=== PATIENT | female | born 1980 | race Caucasian/White ===

== ENCOUNTER → 2018-02-19 15:06 | Outpatient (CLI) | payer BC, SELFPAY ==
[2018-02-19 16:11] LABS: Hematocrit 41.7 % (37-47); Hemoglobin 13.5 g/dl (12.0-15.0); Mean Corp Hgb Conc 32.4 g/gl (32-36); Mean Corpuscular Hgb 30.1 pg (27.0-32.0); Mean Corpuscular Volume 93.1 fL (81-99); Platelet Count 412 K/mm3 (150-450); RBC Distribution Width CV 13.8 % (11.6-14.6); RBC Distribution Width SD 46.4 fl (35.1-43.9); Red Blood Count 4.48 M/mm3 (4.2-5.4); White Blood Count 10.4 K/mm3 (4.4-11.0)
[2018-02-19 16:14] LABS: Scan Indicated on CBC? Y/N NO
[2018-02-19 16:21] LABS: ALB/GLOB Ratio 0.6 RATIO (0.9-2.4); AST(SGOT) 18 U/L (15-37); Alanine Aminotransfer ALT/SGPT 19 U/L (13-56); Albumin, Serum 2.9 g/dL (3.2-5.0); Alkaline Phosphatase 75 U/L (45-117); Anion Gap 9 (5-15); BUN 10 mg/dL (7-18); BUN/Creat Ratio 10.2 RATIO (10-20); Calcium,Total 8.7 mg/dL (8.5-10.1); Chloride 105 mmol/L (98-107); Creatinine, Serum 0.98 mg/dL (0.55-1.02); EST Glomerular Filtration Rate 68 mL/min (>60); Est Glom Filt Rate - Afr Amer 82 mL/min (>60); Globulin 4.6 g/dL (2.2-4.2); Glucose 99 mg/dL (74-106); Potassium 4.1 mmol/L (3.5-5.1); Protein, Total 7.5 g/dL (6.4-8.2); Sodium Level 141 mmol/L (136-145)
[2018-02-19 16:44] LABS: Erythrocyte Sedimentation Rate 27 mm/hr (0-20)
== END ==
PROVIDERS: Family Provider Family Medicine; PCP Family Medicine; Visit Provider Internal Medicine Gastroenterology
DX: K50.90 Crohn's disease, unspecified, without complications (principal)
CPT/HCPCS: 36415; 80053; 85027; 85652

== ENCOUNTER → 2018-06-18 12:09 | Outpatient (CLI) | payer BC, SELFPAY ==
[2018-06-18 14:29] LABS: Thyroid Stim Hormone (TSH) 3.51 uIU/mL (0.358-3.74)
== END ==
PROVIDERS: Family Provider Family Medicine; PCP Family Medicine; Referring Provider Family Medicine; Visit Provider Family Medicine
DX: R79.89 Other specified abnormal findings of blood chemistry (principal)
CPT/HCPCS: 36415; 84443

== ENCOUNTER 2018-10-24 22:48 | Emergency (ER) | payer BC, SELFPAY ==
[2018-10-24 22:49] VITALS: BP 144/92; PULSE 111; RESP 18; TEMP 37.1; O2SAT 95; BMI 38.1
[2018-10-24] MEDS: 0.9% Normal Saline 1,000 ML 1000 ML IV (23:26)
[2018-10-24] MEDS: Morphine 4 MG/ML Syringe IV (23:26)
[2018-10-24] MEDS: Ondansetron 4 MG/2 ML Vial IV (23:26)
[2018-10-24 23:32] LABS: Absolute Lymphocyte Count 3.58 X10^3/ul (0.83-4.51); Absolute Neutrophil Count 7.7 X10^3/uL (2.0-7.7); Basophil# 0.01 X10^3/uL; Basophil% 0.1 % (0-1); Eosinophil# 0.01 X10^3/uL; Eosinophils% 0.1 % (0-5); Hematocrit 42.4 % (37-47); Hemoglobin 13.8 g/dl (12.0-15.0); Lymphocyte # 3.58 X10^3/ul (4.0); Lymphocyte % 29.7 % (19-41); Mean Corp Hgb Conc 32.5 g/gl (32-36); Mean Corpuscular Hgb 30.8 pg (27.0-32.0); Mean Corpuscular Volume 94.6 fL (81-99); Mean Platelet Vol. 9.1 fl (6.2-12.0); Monocyte# 0.71 X10^3/uL; Monocyte% 5.9 % (0-10); Neutrophil # 7.74 X10^3/uL (2.7-7.7); Platelet Count 380 K/mm3 (150-450); RBC Distribution Width CV 14.2 % (11.6-14.6); RBC Distribution Width SD 48.6 fl (35.1-43.9); Red Blood Count 4.48 M/mm3 (4.2-5.4); White Blood Count 12.1 K/mm3 (4.4-11.0)
[2018-10-24 23:33] LABS: POSITIVE COUNT NO; POSITIVE DIFFERENTIAL NO; POSITIVE MORPHOLOGY NO
[2018-10-24 23:46] LABS: ALB/GLOB Ratio 0.6 RATIO (0.9-2.4); AST(SGOT) 13 U/L (15-37); Alanine Aminotransfer ALT/SGPT 14 U/L (13-56); Albumin, Serum 2.6 g/dL (3.2-5.0); Alkaline Phosphatase 63 U/L (45-117); Anion Gap 8 (5-15); BUN 9 mg/dL (7-18); BUN/Creat Ratio 9.9 RATIO (10-20); Calcium,Total 8.5 mg/dL (8.5-10.1); Chloride 111 mmol/L (98-107); EST Glomerular Filtration Rate 74 mL/min (>60); Est Glom Filt Rate - Afr Amer 89 mL/min (>60); Estimated Creatinine Clearance 73.19 ml/min; Globulin 4.7 g/dL (2.2-4.2); Glucose 108 mg/dL (74-106); Lipase 101 U/L (73-393); Potassium 4.5 mmol/L (3.5-5.1); Protein, Total 7.3 g/dL (6.4-8.2); Sodium Level 139 mmol/L (136-145)
[2018-10-24 23:49] VITALS: BP 141/98; PULSE 94; RESP 14; TEMP 37; O2SAT 99
--- NOTE | 2018-10-24 23:52 | ED.RN ---
sepsis alert activated. dr Jiménez informed. he feels it is an inflammatory process not infectious. mariposa watkins rn [id number]
[2018-10-25 00:53] LABS: Bacteria 0 SEEN /hpf (None Seen)
[2018-10-25 00:55] LABS: Color, Urine Yellow (Yellow); Glucose, Dipstick Normal (Normal); Ketone-Dipstick 5 mg/dl (Negative); Leukocyte Esterase-Dipstick 100 /ul (Negative); Nitrite-Dipstick Negative (Negative); Occult Blood-Urine 25 /ul (Negative); Protein-Dipstick 15 mg/dl (Negative); Specific Gravity, Urine 1.015 (1.002-1.030); Urine Bilirubin Dipstick Negative (Negative); Urine Clarity Clear (Clear); Urine Urobilinogen Normal (Normal)
[2018-10-25 00:58] LABS: Internal QC Validated? YES +Cl - CLEAR BKGD; Pregnancy, Urine Negative Negative
[2018-10-25 01:01] LABS: Mucous, Urine 2+ /hpf (<or=2+); Red Blood Cells-Urine 0-5 SEEN /hpf (0-5); Squamous Epithelial Cells - UA > 100 SEEN /hpf (5-10); White Blood Cells 5-10 SEEN /hpf (0-5)
[2018-10-25] MEDS: Morphine 4 MG/ML Syringe IV (01:08)
[2018-10-25 01:10] VITALS: BP 157/107; PULSE 91; RESP 17; O2SAT 97
--- NOTE | 2018-10-25 02:10 | ED.DCSUM_ITS ---
- ER Visit Summary Date of Service: 10/25/18 Chief Complaint: Abdominal pain nausea History of Present Illness: The patient is a 38 F who presents with chief complaint of Crohn's flare. She has a history of Crohn's disease. She has had no surgeries. She sees Dr. Ch. She developed periumbilical pain yesterday. She describes this is severe and stabbing. It does not radiate. She reports mild nausea without any vomiting. She is also had one episode of loose stool today. No fever. Physical Examination: Afebrile initial heart rate 111 vitals otherwise normal Heart regular tachycardia Lungs clear Abdomen soft nondistended she does have some diffuse nonfocal abdominal te nderness without guarding without rebound Alert Test Results: Labs notable for white count 12.1. Hepatic function lipase unremarkable. Urinalysis contaminated. negative. CT of the abdomen pelvis is consistent with acute Crohn's flare with distal ileitis. Emergency Department Course and Treatment: Patient was treated here with IV morphine and Zofran. On reevaluation she feels much better and complains of only some mild tenderness. She does feel well enough to go home. We discussed hospitalization versus oral steroid and close outpatient follow-up. She would prefer to try outpatient management. However she does understand the need to return for new or worsening symptoms. Treatment Plan: [] Disposition: Discharge Impression: Crohn's flare This note was generated with [employer] dictation software. It may contain incorrect words, spelling, and punctuation that were not noted in review of the chart prior to signing ED Disposition - Plan for ED Patient: Referrals: Sawyer Tavera MD [Primary Care Provider] -
--- NOTE | 2018-10-25 02:10 | ED.DEP ---
ED Disposition - Plan for ED Patient: Instructions: ED Inflam Bowel Disease Crohn Prescriptions: predniSONE tablet 60 mg PO DAILY #15 tab Referrals: Sawyer Tavera MD [Primary Care Provider] -
[2018-10-25 02:18] VITALS: BP 156/96; PULSE 95; RESP 16; O2SAT 96
--- NOTE | 2018-10-25 23:11 | CT_ITS ---
HISTORY: ABDOMEN PAIN AND NAUSEA SINCE YESTERDAY,ELEVATED WBCHX:HTN,CROHN'S EXAMINATION: CT Abdomen And Pelvis W/ Contrast TECHNIQUE: Helically acquired images were obtained of the abdomen and pelvis following oral and IV contrast. IV Contrast dosage and agent: 100ML Isovue 300 Oral contrast: Yes. COMPARISON: None. FINDINGS: LOWER CHEST: Lung bases are clear. No cardiomegaly or pericardial effusion observed. LIVER: Homogeneous. No focal mass. GALLBLADDER AND BILIARY TREE: No calcified gallstones. There is no gallbladder distension or wall edema. No intra- or extrahepatic biliary ductal dilation. KIDNEYS AND URETERS: Normal renal size and position. There is no hydronephrosis. ADRENAL GLANDS: Non-enlarged. SPLEEN: Normal size without focal cystic or solid mass. PANCREAS: No focal cystic or solid mass. BOWEL: Normal appendix. Marked wall thickening of the distal and terminal ileum with areas of luminal narrowing and mild dilation. Inflammatory changes and mild adenopathy in the adjacent mesentery, but no abscess or extraluminal air. Remainder of the bowel unremarkable. LYMPH NODES: No enlarged mesenteric or retroperitoneal lymph nodes. PERITONEUM: Small amount of free fluid and fluid in the mesentery. No free air or extraluminal air. VESSELS: Aorta is non-dilated. URINARY BLADDER: Unremarkable. REPRODUCTIVE ORGANS: No pelvic masses. Uterus and ovaries with normal CT appearance. ABDOMINAL WALL: No discrete abdominal or pelvic wall hernia observed. BONES: No acute osseous abnormality. CT/Abdomen/Pelvis WITH Contrast IMPRESSION: Findings compatible with an acute flare of Crohn's disease with distal/terminal ileitis. Any obstruction is mild, low-grade and partial. No abscess, no evidence of perforation. Individualized dose optimization techniques were used for this CT. at 0153 Reported and signed by: Mane Rutledge MD Electronically Signed: Mane Rutledge, at 1:52 EDT Tel , Service support ,
== END 2018-10-25 02:19 | disposition home or self-care (01) ==
LOC: ED 23:17
PROVIDERS: Emergency Provider Emergency Medicine; Family Provider Family Medicine; PCP Family Medicine
DX: K50.90 Crohn's disease, unspecified, without complications (principal); I10 Essential (primary) hypertension
CPT/HCPCS: 74177; 80053; 81001; 81025; 83690; 85025; 96361; 96374; 96375; 96376; 99283; J7030; Q9967; A4216; J2405

== ENCOUNTER → 2018-11-12 15:41 | Outpatient (CLI) | payer BC, SELFPAY ==
[2018-10-24 22:49] VITALS: BMI 38.1
--- NOTE | 2018-11-09 | COLBX_PTH ---
PATIENT: JOHN ANAND LOC: [facility] U#:[id number] AGE/SX: 44/F ROOM: RE11/12/[address]: Dr. Karson Ch MD : 1980 BED: DIS: SPEC #: [id number] RECD: 11/12/18 15:28 STATUS: ROBINA MARI #: [id number] JENNIFFER: 11/09/18 00:[address]: Karson Ch DEPT: SURGICAL PATHOLOGY RECD BY: Carlito Luna ENTERED: 11/13/18 09:23 SP TYPE: COLON BX OTHR DR: Dr. Sawyer Tavera MD [facility] Tissues: A - Ileum, NOS B - Right colon Procedures: Surgery Specimen Level IV HEADER OPERATION: Colonoscopy with biopsy PRE-OP DIAGNOSIS: Crohn's TISSUE SUBMITTED: A - Terminal ileum biopsies, rule out active Crohn's, B - Right colon biopsies, rule out active Crohn's MICROSCOPIC DIAGNOSIS A. Terminal ileum, biopsy: Fragments of small intestinal mucosa with blunting of villi, mild architectural distortion and mild nonspecific chronic inflammation. Negative for active inflammation. B. right colon, biopsy: Fragments of colonic mucosa, no pathologic diagnosis. SMITH:stevie 11/14/18 COMMENT Correlation with clinical, endoscopic findings and appropriate follow up are necessary. Case has been reviewed in consultation with Dr. Reyes who concurs with the above diagnosis. IDC:AM MICROSCOPIC DESCRIPTION Slides are reviewed. GROSS DESCRIPTION A - Received in fixative is one container labeled with the patient's name and designated terminal ileum biopsy. The specimen consists of multiple irregular fragments of light harley soft tissue that in aggregate measure 0.8 x 0.3 x 0.1 cm. The specimen is totally submitted in one cassette. B - Received in fixative is one container labeled with the patient's name and designated right colon biopsy. The specimen consists of multiple irregular fragments of light harley soft tissue that in aggregate measure 2 x 0.5 x 0.1 cm. The specimen is totally submitted in one cassette. / SMITH:stevie 11/13/18 TC:5 CPT: 66005 x2
== END ==
PROVIDERS: Family Provider Family Medicine; PCP Family Medicine; Referring Provider Internal Medicine Gastroenterology; Visit Provider Internal Medicine Gastroenterology
DX: K50.90 Crohn's disease, unspecified, without complications (principal)
CPT/HCPCS: 88305

== ENCOUNTER → 2018-11-28 15:26 | Outpatient (CLI) | payer BC, SELFPAY ==
[2018-11-28 17:53] LABS: AST(SGOT) 13 U/L (15-37); Alanine Aminotransfer ALT/SGPT 18 U/L (13-56); Albumin, Serum 2.8 g/dL (3.2-5.0); Alkaline Phosphatase 85 U/L (45-117); Bilirubin, Direct 0.05 mg/dL (0.00-0.30); Globulin 3.9 g/dL (2.2-4.2); Protein, Total 6.7 g/dL (6.4-8.2)
[2018-11-30 16:07] LABS: Endomysial Antibody IgA Negative (Negative)
[2018-12-02 14:03] LABS: Immunoglobulin A 336 mg/dL (87-352); t-Transglutaminase IgA <2 U/mL (0-3)
== END ==
PROVIDERS: Family Provider Family Medicine; PCP Family Medicine; Referring Provider Internal Medicine Gastroenterology; Visit Provider Internal Medicine Gastroenterology
DX: K50.90 Crohn's disease, unspecified, without complications (principal)
CPT/HCPCS: 36415; 80076; 82784; 83516; 86140; 86255

== ENCOUNTER → 2020-04-27 13:43 | Outpatient (CLI) | payer BC, SELFPAY ==
[2020-04-27 15:23] LABS: Hemoglobin 13.3 g/dL (12.0-15.0); Mean Corp Hgb Conc 31.7 g/dL (32-36); Mean Corpuscular Hgb 29.3 pg (27.0-32.0); Mean Corpuscular Volume 92.5 fL (81-99); Mean Platelet Vol. 9.3 fl (6.2-12.0); Platelet Count 474 K/mm3 (150-450); RBC Distribution Width CV 13.5 % (11.6-14.6); RBC Distribution Width SD 46.6 fl (35.1-43.9); Red Blood Count 4.54 M/mm3 (4.2-5.4); White Blood Count 10.2 K/mm3 (4.4-11.0)
[2020-04-27 15:49] LABS: ALB/GLOB Ratio 0.6 RATIO (0.9-2.4); AST(SGOT) 9 U/L (15-37); Alanine Aminotransfer ALT/SGPT 12 U/L (13-56); Albumin, Serum 2.9 g/dL (3.2-5.0); Alkaline Phosphatase 77 U/L (45-117); Anion Gap 8 (5-15); BUN 11 mg/dL (7-18); BUN/Creat Ratio 11.7 RATIO (10-20); Calcium,Total 9.1 mg/dL (8.5-10.1); Chloride 105 mmol/L (98-107); Creatinine, Serum 0.94 mg/dL (0.55-1.02); EST Glomerular Filtration Rate 70 mL/min (>60); Est Glom Filt Rate - Afr Amer 85 mL/min (>60); Globulin 4.6 g/dL (2.2-4.2); Glucose 107 mg/dL (74-106); Potassium 3.6 mmol/L (3.5-5.1); Protein, Total 7.5 g/dL (6.4-8.2); Sodium Level 137 mmol/L (136-145)
== END ==
PROVIDERS: PCP Family Medicine; Referring Provider Internal Medicine Gastroenterology; Visit Provider Internal Medicine Gastroenterology
DX: K50.90 Crohn's disease, unspecified, without complications (principal)
CPT/HCPCS: 36415; 80053; 85027; 86140

== ENCOUNTER → 2021-10-11 | Outpatient (CLI) | payer OTHER, SELFPAY ==
[2021-10-11 18:12] LABS: Hematocrit 36.1 % (37-47); Hemoglobin 11.7 g/dL (12.0-15.0); Mean Corp Hgb Conc 32.4 g/dL (32-36); Mean Corpuscular Hgb 30.4 pg (27.0-32.0); Mean Corpuscular Volume 93.8 fL (81-99); Mean Platelet Vol. 9.2 fl (6.2-12.0); Platelet Count 380 K/mm3 (150-450); RBC Distribution Width CV 13.6 % (11.6-14.6); RBC Distribution Width SD 46.5 fl (35.1-43.9); Red Blood Count 3.85 M/mm3 (4.2-5.4); White Blood Count 8.6 K/mm3 (4.4-11.0)
[2021-10-11 18:13] LABS: Erythrocyte Sedimentation Rate 35 mm/hr (0-30)
[2021-10-11 18:39] LABS: ALB/GLOB Ratio 0.6 RATIO (0.9-2.4); AST(SGOT) 10 U/L (15-37); Alanine Aminotransfer ALT/SGPT 12 U/L (13-56); Albumin, Serum 2.4 g/dL (3.2-5.0); Alkaline Phosphatase 70 U/L (45-117); Anion Gap 9 (5-15); BUN 8 mg/dL (7-18); BUN/Creat Ratio 10.3 RATIO (10-20); Calcium,Total 8.3 mg/dL (8.5-10.1); Chloride 108 mmol/L (98-107); Creatinine, Serum 0.77 mg/dL (0.55-1.02); EST Glomerular Filtration Rate 87 mL/min (>60); Est Glom Filt Rate - Afr Amer 106 mL/min (>60); Globulin 4.3 g/dL (2.2-4.2); Glucose 121 mg/dL (74-106); Potassium 3.5 mmol/L (3.5-5.1); Protein, Total 6.7 g/dL (6.4-8.2); Sodium Level 139 mmol/L (136-145)
== END | disposition home or self-care (01) ==
PROVIDERS: PCP Family Medicine; Referring Provider Internal Medicine Gastroenterology; Visit Provider Internal Medicine Gastroenterology
DX: K50.90 Crohn's disease, unspecified, without complications (principal)
CPT/HCPCS: 36415; 80053; 85027; 85652; 86140

== ENCOUNTER → 2021-10-13 | Outpatient (CLI) | payer OTHER, SELFPAY ==
[2021-10-18 13:41] LABS: Calprotectin, Stool 66 ug/g (0-120)
== END | disposition home or self-care (01) ==
LOC: LAB.FUTURE 13:46 → MTLAB 16:02
PROVIDERS: PCP Family Medicine; Referring Provider Internal Medicine Gastroenterology; Visit Provider Internal Medicine Gastroenterology
DX: K50.90 Crohn's disease, unspecified, without complications (principal)
CPT/HCPCS: 83993

== ENCOUNTER → 2021-11-04 | Outpatient (CLI) | payer OTHER, SELFPAY ==
--- NOTE | 2021-11-04 08:05 | RAD_ITS ---
PROCEDURE: SMALL BOWEL SERIES DATE OF EXAMINATION: 11/04/2021. INDICATION: Female, 41 years old. History of Crohn''s. PHYSICIAN: Hi Wilkins M.D. FLUOROSCOPY TIME (if supplied): (0:07) minutes/seconds. 8 images were obtained. TECHNIQUE: Radiographic and fluoroscopic images were taken of the small intestine following the ingestion of barium. COMPARISON: None. FINDINGS: A preliminary supine KUB was obtained. There is an unremarkable bowel gas pattern. Fecal material is present throughout the colon. Phleboliths are present within the pelvis. The lung bases are unremarkable. The osseous structures are normal. The patient orally ingested approximately 12 ounces of thin barium Normal visualized fundus, body, and antrum of the stomach. Normal duodenal bulb, C-loop, and proximal jejunum. There is evidence of a separation of the bowel loops with the thickening and narrowing of the distal and terminal ileum. There is also evidence of a thickening of the visualized portion of the cecum and ascending colon in keeping with recurrent Crohn''s disease. Linear barium density seen in the right side of the pelvis suggestive of possible fistula. There is a normal motor pattern with barium reaching the colon within approximately 30 minutes. RAD/Small Bowel Series Only IMPRESSION: Thickening and separation of small bowel loops in the distal and terminal ileum with evidence of narrowing and abnormal appearance of the terminal ileum and cecum. A linear barium density is seen in the right upper pelvis suggestive of possible fistula. Electronically Signed: Hi Wilkins MD at 12:16 EDT ,
== END | disposition home or self-care (01) ==
LOC: RAD 08:05
PROVIDERS: PCP Family Medicine; Referring Provider Internal Medicine Gastroenterology; Visit Provider Internal Medicine Gastroenterology
DX: K50.90 Crohn's disease, unspecified, without complications (principal)
CPT/HCPCS: 74250

== ENCOUNTER → 2021-12-21 | Outpatient (CLI) | payer OTHER, SELFPAY | END | disposition home or self-care (01) | LOC: MTLAB 16:07 | PROVIDERS: PCP Family Medicine; Referring Provider Internal Medicine Gastroenterology; Visit Provider Internal Medicine Gastroenterology | DX: K50.90 Crohn's disease, unspecified, without complications (principal) | CPT/HCPCS: 36415 ==

== ENCOUNTER → 2022-01-25 | Outpatient (CLI) | payer OTHER, SELFPAY ==
[2022-01-28 17:07] LABS: QNTFERON TB Nil Value 0.02 IU/mL (.); QNTFERON TB1+ Ag Value 0.05 IU/mL (.); QNTFERON TB2+ Ag Value 0.06 IU/mL (.)
[2022-01-29 07:44] LABS: QNTIFERON TB Positive Criteria Negative (Negative)
== END | disposition home or self-care (01) ==
LOC: MTLAB 15:24
PROVIDERS: PCP Family Medicine; Referring Provider Internal Medicine Gastroenterology; Visit Provider Internal Medicine Gastroenterology
DX: K50.90 Crohn's disease, unspecified, without complications (principal)
CPT/HCPCS: 36415; 86480

== ENCOUNTER 2023-02-07 14:37 | Inpatient (IN) | payer OTHER, SELFPAY ==
[2023-02-07] VITALS (7 sets, daily range): BP systolic 124–135; BP diastolic 77–94; PULSE 82–103; RESP 15–87; TEMP 36.2–37.2; O2SAT 96–100; BMI 41.3
[2023-02-07] MEDS: Ondansetron 4 MG/2 ML Vial IV ×2 (14:52→16:40)
[2023-02-07 14:59] LABS: Basophil# 0.08 X10^3/uL; Basophil% 0.4 % (0-1); Eosinophil# 0.14 X10^3/uL; Eosinophils% 0.7 % (0-5); Hematocrit 43.3 % (37-47); Hemoglobin 14.5 g/dL (12.0-15.0); Lymphocyte % 23.1 % (19-41); Mean Corp Hgb Conc 33.5 g/dL (32-36); Mean Corpuscular Volume 92.7 fL (81-99); Mean Platelet Vol. 8.7 fl (6.2-12.0); Monocyte# 1.01 X10^3/uL; Monocyte% 5.1 % (0-10); NRBC Flagged by Analyzer 0 % (0-5); Neutrophil % 70.3 % (47-70); Platelet Count 555 K/mm3 (150-450); RBC Distribution Width CV 14.7 % (11.6-14.6); RBC Distribution Width SD 50.3 fl (35.1-43.9); Red Blood Count 4.67 M/mm3 (4.2-5.4); White Blood Count 19.9 K/mm3 (4.4-11.0)
--- NOTE | 2023-02-07 15:46 | EKG12_ITS ---
Test Reason : SYNCOPE Blood Pressure : / mmHG Vent. Rate : 084 BPM Atrial Rate : 084 BPM P-R Int : 154 ms QRS Dur : 074 ms QT Int : 394 ms P-R-T Axes : 029 -11 008 degrees QTc Int : 465 ms Normal sinus rhythm Cannot rule out Anterior infarct , age undetermined Abnormal ECG Confirmed by TIAGO YUSUF, SAQIB ([id number]), fashion editor CARMEN ALATORRE ([id number]) on 02/10/2023 12:57:32 PM Referred By: Confirmed By:SAQIB ORDOÑEZ MD
--- NOTE | 2023-02-07 15:48 | CT_ITS ---
EXAM: CT ABDOMEN AND PELVIS WITH INTRAVENOUS CONTRAST CLINICAL INDICATION: abdominal pain. Previously reported Crohn''s disease, not indicated on current requisition. Correlation with current history and prior studies is required. TECHNIQUE: Helically acquired images were obtained of the abdomen and pelvis with intravenous contrast. This CT exam was performed using one or more of the following dose reduction techniques: automated exposure control, adjustment of the mA and/or kV according to patient size, and/or use of iterative reconstruction technique. CONTRAST: IV 100mL Isovue-300 COMPARISON: 10/25/2018. FINDINGS: LOWER THORAX: Unremarkable. Lung bases are clear. No cardiomegaly. No significant pericardial effusion. ABDOMEN: LIVER: Unremarkable. Homogeneous. No focal mass. GALLBLADDER AND BILE DUCTS: Unremarkable. No calcified gallstones. No gallbladder distention or wall edema. No intra- or extrahepatic biliary ductal dilation. PANCREAS: Unremarkable. No focal cystic or solid mass. SPLEEN: Unremarkable. Normal size without focal cystic or solid mass. ADRENALS: Unremarkable. No nodules. KIDNEYS AND URETERS: Unremarkable. Normal renal size and position. No hydronephrosis. STOMACH AND BOWEL: Multiple dilated loops of ileum consistent with small bowel obstruction. Moderate wall thickening of the distal ileum consistent with previously reported Crohn''s disease. Moderate mesenteric fat surrounding the involved small bowel loops. PELVIS: APPENDIX: No evidence of acute appendicitis. BLADDER: Unremarkable. REPRODUCTIVE: Unremarkable as visualized. No mass. ABDOMEN and PELVIS: INTRAPERITONEAL SPACE: Unremarkable. No ascites or other fluid collection. No free air. BONES/JOINTS: Unremarkable. No suspicious lytic or blastic abnormality. SOFT TISSUES: Unremarkable. No discrete abdominal or pelvic wall hernia. VASCULATURE: Unremarkable. Abdominal aorta is normal in caliber. LYMPH NODES: Unremarkable. No enlarged lymph nodes. CT/Abdomen/Pelvis W IV Cont ONLY IMPRESSION: Partial small bowel obstruction, likely due to Crohn''s disease. Electronically Signed: Anali Lopez MD at 18:28 EDT Reading Location ID and State: [id number] / Tel , Service support ,
--- NOTE | 2023-02-07 15:52 | RAD_ITS ---
INDICATION: carlosnes EXAMINATION/TECHNIQUE: X-RAY - XR Chest 1 View COMPARISON: FINDINGS: LINES/DEVICES: None. LUNGS: No consolidation, edema or effusion. No pneumothorax. MEDIASTINUM AND CARDIOVASCULAR STRUCTURES: Cardiac silhouette not enlarged. Central airways and mediastinal contour are unremarkable. BONES AND SOFT TISSUES: Unremarkable. RAD/Chest 1 View (Portable) IMPRESSION: No radiographic evidence of acute cardiopulmonary disease. Electronically Signed: Anali Lopez MD at 16:18 EDT Reading Location ID and State: [id number] / Tel , Service support ,
--- NOTE | 2023-02-07 16:21 | ED.VIS.GI ---
HPI HPI - GI History of Present Illness Chief Complaint: Nausea/Vomiting Narrative Narrative: 42-year-old female with history of Crohn's disease and previously patient of Dr. sanderson. She used to be on Stelara. She states that since March of last year she has been off of it due to this not being covered by her insurance. She states that that is when she last saw Dr. Sanderson as well. She states her symptoms started about 1 PM today. She has been vomiting multiple times. He denies diarrhea. She has crampy pain all over her abdomen. She states her pain is now a 2/10. She states she believes she had a fever at home but did not check a temperature. No history of abdominal surgeries. Last colonoscopy was last year. PFSH PFS Medical History (Updated 02/07/23 @ 20:[address] Aure Hernandez MD) Anxiety and depression Crohn disease Hypertension Hypothyroidism Obesity Home Medications cholecalciferol (vitamin D3) 125 mcg (5,000 unit) capsule 5,000 unit PO DAILY 10/24/18 [History Last Taken 02/07/23 06:30] desogestrel-ethinyl estradiol 0.1 mg/0.125 mg/0.15 mg-25 mcg tablet (Velivet Triphasic Regimen (28)) 1 tab PO DAILY 10/24/18 [History Last Taken 02/07/23 06:30] levothyroxine 175 mcg tablet 175 mcg PO DAILY 10/24/18 [History Last Taken 02/07/23 06:30] propranolol 40 mg tablet 40 mg PO BID 10/24/18 [History Last Taken 02/07/23 06:30] sertraline 50 mg tablet 50 mg PO DAILY 10/24/18 [History Last Taken 02/07/23 06:30] vitamin B complex (B Complex-Vitamin B12 tablet) 1 tab PO DAILY 02/07/23 [History Last Taken 02/07/23 06:30] Allergy/AdvReac Type Severity Reaction Status Date / Time No Known Allergies Allergy Verified 10/24/18 22:48 Surgical History (Updated 02/07/23 @ 20:[address] Aure Hernandez MD) History of dental surgery Social History (Updated 02/07/23 @ 20:[address] Aure Hernandez MD) household members: spouse Smoking Status: Never smoker alcohol intake: never substance use type: does not use ROS ROS ED Constitutional Constitutional ED: Reports fever(s) and subjective; Denies chills ENT ENT ED: Denies rhinorrhea or sore throat Cardiovascular Cardiovascular: Denies chest pain or palpitations Respiratory/Chest Respiratory/Chest: Denies cough or dyspnea Gastrointestinal Gastrointestinal: Reports abdominal pain, nausea and vomiting; Denies diarrhea Genitourinary Genitourinary ED: Denies dysuria or hematuria Musculoskeletal Musculoskeletal: Denies arthralgias Integumentary Denies abscess Neurologic Neurologic: Denies headache(s) or paresthesias Psychiatric Psychiatric: Denies anxiety or depression EXAM Physical Exam Const Vital Signs: 02/07/23 14:38 02/07/23 15:50 02/07/23 16:00 Temperature 97.2 F L 98.6 F 98.5 F Temperature Source Temporal Oral Oral Pulse Rate 103 H 89 88 Respiratory Rate 17 20 H 17 Blood Pressure 135/92 H 135/77 H 134/92 H Blood Pressure Mean 106 96 106 Pulse Ox 97 100 100 Oxygen Delivery Method Room Air Room Air Room Air 02/07/23 16:37 02/07/23 18:00 02/07/23 20:01 Temperature 98.9 F Temperature Source Temporal Pulse Rate 82 87 87 Respiratory Rate 15 16 87 H Blood Pressure 135/80 H 124/94 H 134/79 H Blood Pressure Mean 98 104 97 Pulse Ox 98 97 96 Oxygen Delivery Method Room Air Room Air Room Air Positive well nourished and obese General Appearance ED: NAD Nutritional Appearance: obese HEENT Reports moist mucous membranes normocephalic and atraumatic Eyes PERRL and EOMs intact bilaterally Resp normal respiratory effort Effort and Inspection: Negative for respiratory distress Cardio regular rhythm Rate: tachycardic GI Palpation: tender periumbilical and suprapubic MDM MDM MDM Narrative Medical decision making narrative: Patient with nausea, vomiting, cramping of the abdomen. History of Crohn's disease. Differential includes Crohn's flare, diverticulitis, colitis, UTI, pyelonephritis. CBC was obtained to assess white blood cell count, hemoglobin, platelets, differential. CMP to assess liver function, renal function, electrolytes. Urinalysis to assess for UTI. Lactic acid, coagulation studies, blood cultures and urine cultures were obtained as part of a septic work-up. Patient given 2 L of IV fluids. She was also given Zofran. CBC shows a leukocytosis of 19.9. Hemoglobin 14.5. Platelets 555 and therefore high. Renal function and electrolytes are unremarkable. LFTs are normal. Lactic acid came back at 3.3. High-sensitivity troponin less than 3. EKG sinus rhythm with a ventricular rate 84 bpm without sign of ischemic change or ectopy on my interpretation. chest x-ray on my interpretation shows no acute process. CT of the abdomen pelvis was obtained which shows partial small bowel obstruction likely secondary to Crohn's flare. Discussed with Dr. Hilario did not believe this was surgical. She recommended contacting GI. I spoke with Dr. Rousseau who recommended steroids, Cipro Flagyl, IV fluids. He recommended admission to medicine. Patient doing much better after medication. Impression: 1. Sepsis 2. Crohn's flare 3. Lactic acidosis 4. Partial small bowel obstruction Lab Data Attestation: I reviewed the patient's lab results. Labs: Laboratory Results - last 24 hr 02/07/23 02/07/23 14:52 16:35 WBC 19.9 H RBC 4.67 Hgb 14.5 Hct 43.3 MCV 92.7 MCH 31.0 MCHC 33.5 RDW Std Deviation 50.3 H RDW Coeff of Brandan 14.7 H Plt Count 555 H MPV 8.7 Immature Gran % (Auto) 0.400 Neut % (Auto) 70.3 H Lymph % (Auto) 23.1 Parker % (Auto) 5.1 Eos % (Auto) 0.7 Baso % (Auto) 0.4 Absolute Neuts (auto) 14.0 H Absolute Lymphs (auto) 4.60 H Nucleated RBC % 0 PT 12.9 INR 1.0 APTT 24.3 Sodium Cancelled 136 Potassium Cancelled 4.4 Chloride Cancelled 103 Carbon Dioxide Cancelled 23.0 Anion Gap Cancelled 10 BUN Cancelled 11 Creatinine Cancelled 0.99 Estim Creat Clear Calc Cancelled 121.92 Est GFR (MDRD) Af Amer Cancelled 79 Est GFR (MDRD) Non-Af Cancelled 65 BUN/Creatinine Ratio Cancelled 11.1 Glucose Cancelled 123 H Lactic Acid 3.3 H* Calcium Cancelled 9.5 Total Bilirubin 0.20 AST 20 ALT 14 Alkaline Phosphatase 80 Troponin I High Sens < 3 L Total Protein 7.9 Albumin 2.6 L Globulin 5.3 H Albumin/Globulin Ratio 0.5 L Lipase 29 Urine Color Yellow Urine Clarity Clear Urine pH 6.0 Ur Specific [place] 1.020 Urine Protein Negative Urine Glucose (UA) Normal Urine Ketones Negative Urine Occult Blood 10 H Urine Nitrite Negative Urine Bilirubin Negative Urine Urobilinogen Normal Ur Leukocyte Esterase Negative Urine RBC 0 SEEN Urine WBC 0 SEEN Ur Squamous Epith Cells 0-5 SEEN Urine Bacteria RARE Hyaline Casts 0-5 SEEN Urine Mucus RARE Radiography Diagnostic Testing: Clinical Impression(s) from Imaging Studies Abdomen/Pelvis CT 02/07/23 15:48 IMPRESSION: Partial small bowel obstruction, likely due to Crohn''s disease. Electronically Signed: Anali Lopez MD at 18:28 EDT Reading Location ID and State: [place] / Tel , Service support , Chest X-Ray 02/07/23 15:52 IMPRESSION: No radiographic evidence of acute cardiopulmonary disease. Electronically Signed: Anali Lopez MD at 16:18 EDT Reading Location ID and State: [place] Almendarez MD Tel , Service support , Discharge Plan Triage Chief Complaint: Nausea/Vomiting ED Provider: Marcin Pack Dx/Rx/DC Orders Primary Care Provider: Johanna Saldivar
[2023-02-07] MEDS: 0.9% Normal Saline 1,000 ML 999 ML IV ×2 (16:40→17:59)
[2023-02-07 16:51] LABS: Red Blood Cells-Urine 0 SEEN /hpf (0-5)
[2023-02-07 16:57] LABS: Color, Urine Yellow (Yellow); Glucose, Dipstick Normal (Normal); Ketone-Dipstick Negative (Negative); Leukocyte Esterase-Dipstick Negative /ul (Negative); Nitrite-Dipstick Negative (Negative); Occult Blood-Urine 10 /ul (Negative); Protein-Dipstick Negative (Negative); Urine Bilirubin Dipstick Negative (Negative); Urine Clarity Clear (Clear); Urine Urobilinogen Normal (Normal)
[2023-02-07 17:04] LABS: Prothrombin Time (Protime)PT. 12.9 SECONDS (11.7-14.9)
[2023-02-07 17:05] LABS: Partial Thromboplast Time 24.3 Seconds (24.1-36.2)
[2023-02-07 17:11] LABS: ALB/GLOB Ratio 0.5 RATIO (0.9-2.4); AST(SGOT) 20 U/L (15-37); Alanine Aminotransfer ALT/SGPT 14 U/L (13-56); Albumin, Serum 2.6 g/dL (3.2-5.0); Alkaline Phosphatase 80 U/L (45-117); Anion Gap 10 (5-15); BUN 11 mg/dL (7-18); BUN/Creat Ratio 11.1 RATIO (10-20); Calcium,Total 9.5 mg/dL (8.5-10.1); Chloride 103 mmol/L (98-107); Creatinine, Serum 0.99 mg/dL (0.55-1.02); EST Glomerular Filtration Rate 65 mL/min (>60); Est Glom Filt Rate - Afr Amer 79 mL/min (>60); Estimated Creatinine Clearance 121.92 ml/min; Globulin 5.3 g/dL (2.2-4.2); Glucose 123 mg/dL (74-106); Lipase 29 U/L (13-75); Potassium 4.4 mmol/L (3.5-5.1); Protein, Total 7.9 g/dL (6.4-8.2); Sodium Level 136 mmol/L (136-145); Troponin-I HS < 3 pg/mL (3.0-54.0)
[2023-02-07 17:48] LABS: Lactic Acid 3.3 mmol/L (0.4-1.9)
[2023-02-07 17:55] LABS: Hyaline Cast 0-5 SEEN /lpf (0-5); Squamous Epithelial Cells - UA 0-5 SEEN /hpf (5-10); White Blood Cells 0 SEEN /hpf (0-5)
[2023-02-07 17:56] LABS: Bacteria RARE /hpf (None Seen); Mucous, Urine RARE /hpf (<or=2+)
--- NOTE | 2023-02-07 19:45 | HP.PCM.HOS_ITS ---
HPI - General General Date of Admission: 02/07/23 Date of Service: 02/07/23 Chief Complaint: Abdominal pain, N/V HPI Narrative The patient is a 42 y/o F w/ PMHx: Hypothyroidism, Anxiety and Depression, HTN, Crohn's disease who presents to the [facility] ED on 02/07/23 with history of previously following with Dr. Ch gastroenterology prior on Stelara however unfortunately she has been off since March of last year secondary to insurance coverage issues with onset at approximately 1 PM on day of presentation nausea and serial bouts of emesis with no diarrhea but severe crampy abdominal pain diffusely with subjective fever at home with last colonoscopy reportedly the year prior and no history of previous abdominal surgeries but given not improving prompted ED evaluation. Patient upon ED arrival rated pain 2 out of 10 in severity. Upon Hospitalist evaluation patient notes pain is nearly resolved currently 1 out of 10 in severity. She does report that the evening prior she ate pulled pork which did have CABG however it was cooked and usually she would have issues if it is cooked but this is potentially related she noted. Her ate the same meal and denies any side effects. She did note that she had a normal-appearing bowel movement earlier in the AM on day of presentation. She denies any diarrhea associated with her presentation currently. Work-up in the ED included T97.2, heart initially 103 with most recent repeat 87, BP initially 135/92 with most recent repeat 124/94, respiratory rate up to 20, currently 16, 97 to 100% on room air, CBC with WBC 19.9, hemoglobin 14.5, platelet 555 with left shift and lymphocytosis, unremarkable coags, lactic acid 3.3, glucose 123, troponin less than 3, hepatic profile unremarkable, lipase 29, urinalysis with specific gravity 1.020 otherwise UA not marked appearing, chest x-ray with no acute cardiopulmonary findings, CT abdomen and pelvis with IV contrast with evidence of a partial small bowel obstruction suspected likely secondary to Crohn's disease, blood culture x2 pending per ED, urine culture pending per ED. In the ED patient ministered Zofran 4 mg IV x2, morphine 4 mg IV x1. [facility] Medical History (Updated 02/07/23 @ 20:[address] Aure Hernandez MD) Anxiety and depression Crohn disease Hypertension Hypothyroidism Obesity Home Medications cholecalciferol (vitamin D3) 125 mcg (5,000 unit) capsule 5,000 unit PO DAILY 10/24/18 [History Last Taken 02/07/23 06:30] desogestrel-ethinyl estradiol 0.1 mg/0.125 mg/0.15 mg-25 mcg tablet (Velivet Triphasic Regimen (28)) 1 tab PO DAILY 10/24/18 [History Last Taken 02/07/23 06:30] levothyroxine 175 mcg tablet 175 mcg PO DAILY 10/24/18 [History Last Taken 02/07/23 06:30] propranolol 40 mg tablet 40 mg PO BID 10/24/18 [History Last Taken 02/07/23 06:30] sertraline 50 mg tablet 50 mg PO DAILY 10/24/18 [History Last Taken 02/07/23 06:30] vitamin B complex (B Complex-Vitamin B12 tablet) 1 tab PO DAILY 02/07/23 [History Last Taken 02/07/23 06:30] Allergy/AdvReac Type Severity Reaction Status Date / Time No Known Allergies Allergy Verified 10/24/18 22:48 Surgical History (Updated 02/07/23 @ 20:[address] Aure Hernandez MD) History of dental surgery Social History (Updated 02/07/23 @ 20:[address] Aure Hernandez MD) household members: spouse Smoking Status: Never smoker alcohol intake: never substance use type: does not use ROS ROS Narrative Admission Review of Systems: CONSTITUTIONAL: No weight loss, chills, + possible subjective fever, weakness or fatigue. HEENT: Eyes: No visual loss, blurred vision, double vision or yellow sclerae. Ears, Nose, Throat: No hearing loss, sneezing, congestion, runny nose or sore throat. SKIN: No rash or itching, lesions, wounds. CARDIOVASCULAR: No chest pain, chest pressure or chest discomfort, palpitations, edema, orthopnea, syncopal events. RESPIRATORY: No shortness of breath, cough or sputum, wheezing, hemoptysis. GASTROINTESTINAL: + anorexia, nausea, vomiting, abdominal cramping. No diarrhea, melena, BRBPR. GENITOURINARY: No dysuria, frequency, urgency or retention. NEUROLOGICAL: No headache, dizziness, syncope, paralysis, ataxia, numbness or tingling in the extremities, focal weakness, change in bowel or bladder control, seizure. MUSCULOSKELETAL: No muscle, back pain, joint pain or stiffness. HEMATOLOGIC: No anemia, bleeding or bruising. LYMPHATICS: No enlarged nodes. No history of splenectomy. PSYCHIATRIC: + history of depression or anxiety. ENDOCRINOLOGIC: No reports of sweating, cold or heat intolerance. No polyuria or polydipsia. ALLERGIES: No history of asthma, hives, eczema or rhinitis. Vital Signs Vital Signs Vital Signs: 02/07/23 14:38 02/07/23 15:50 02/07/23 16:00 Temperature 97.2 F L 98.6 F 98.5 F Temperature Source Temporal Oral Oral Pulse Rate 103 H 89 88 Respiratory Rate 17 20 H 17 Blood Pressure 135/92 H 135/77 H 134/92 H Blood Pressure Mean 106 96 106 Pulse Ox 97 100 100 Oxygen Delivery Method Room Air Room Air Room Air 02/07/23 16:37 02/07/23 18:00 Temperature Temperature Source Pulse Rate 82 87 Respiratory Rate 15 16 Blood Pressure 135/80 H 124/94 H Blood Pressure Mean 98 104 Pulse Ox 98 97 Oxygen Delivery Method Room Air Room Air Weight Weight: 230 lb Body Mass Index (BMI) 0.2 Physical Exam Narrative Physical Examination: General: Awake, alert, oriented x 3 and cooperative, seated upright in the ED bed, fatigued otherwise notes feeling improved. Skin: Normal color, normal turgor, no icterus, no cyanosis. HEENT: AT/NC, EOMI, PERRLA, dry MM, no carotid bruits or JVD noted. Lungs: Mildly diminished, greater bases, proper effort, no rales, ronchi or wheezing. Heart: Currently improved, regular rate and rhythm; no gallop, rub audible. Abdomen: Soft, no marked tenderness to palpation nor any rebound or guarding, unable to discern distention or HSM given habitus, hypoactive bowel sounds Extremities: No cyanosis, clubbing, or edema. Neurological: Patient awake, alert, oriented as noted, cognitive function intact; pupils equally reactive to light and accommodation, cranial nerves II- XII grossly normal, moving all 4 extremities, no focal deficits, strength improving, mildly to moderately global decrease secondary to initial acute complaints. Psychiatric: Affect appears fatigued otherwise normal, no acute evidence of depressive or anxiety feelings but does have underlying history. Results Lab / Micro Data 02/07/23 14:52 02/07/23 16:35 Labs: Laboratory Results - last 24 hr 02/07/23 14:52: WBC 19.9 H, RBC 4.67, Hgb 14.5, Hct 43.3, MCV 92.7, MCH 31.0, MCHC 33.5, RDW Std Deviation 50.3 H, RDW Coeff of Brandan 14.7 H, Plt Count 555 H, MPV 8.7, Immature Gran % (Auto) 0.400, Neut % (Auto) 70.3 H, Lymph % (Auto) 23.1, [place] % (Auto) 5.1, Eos % (Auto) 0.7, Baso % (Auto) 0.4, Absolute Neuts (auto) 14.0 H, Absolute Lymphs (auto) 4.60 H, Nucleated RBC % 0, Sodium Cancelled, Potassium Cancelled, Chloride Cancelled, Carbon Dioxide Cancelled, Anion Gap Cancelled, BUN Cancelled, Creatinine Cancelled, Estim Creat Clear Calc Cancelled, Est GFR (MDRD) Af Amer Cancelled, Est GFR (MDRD) Non-Af Cancelled, BUN/Creatinine Ratio Cancelled, Glucose Cancelled, Calcium Cancelled 02/07/23 16:35: PT 12.9, INR 1.0, APTT 24.3, Sodium 136, Potassium 4.4, Chloride 103, Carbon Dioxide 23.0, Anion Gap 10, BUN 11, Creatinine 0.99, Estim Creat Clear Calc 121.92, Est GFR (MDRD) Af Amer 79, Est GFR (MDRD) Non-Af 65, BUN/Creatinine Ratio 11.1, Glucose 123 H, Lactic Acid 3.3 H*, Calcium 9.5, Total Bilirubin 0.20, AST 20, ALT 14, Alkaline Phosphatase 80, Troponin I High Sens < 3 L, Total Protein 7.9, Albumin 2.6 L, Globulin 5.3 H, Albumin/Globulin Ratio 0.5 L, Lipase 29, Urine Color Yellow, Urine Clarity Clear, Urine pH 6.0, Ur Specific [place] 1.020, Urine Protein Negative, Urine Glucose (UA) Normal, Urine Ketones Negative, Urine Occult Blood 10 H, Urine Nitrite Negative, Urine Bilirubin Negative, Urine Urobilinogen Normal, Ur Leukocyte Esterase Negative, Urine RBC 0 SEEN, Urine WBC 0 SEEN, Ur Squamous Epith Cells 0-5 SEEN, Urine Bacteria RARE, Hyaline Casts 0-5 SEEN, Urine Mucus RARE Radiology Impression Abdomen/Pelvis CT 02/07/23 15:48 IMPRESSION: Partial small bowel obstruction, likely due to Crohn''s disease. Electronically Signed: Anali Lopez MD at 18:28 EDT Reading Location ID and State: [place] / Tel , Service support , Chest X-Ray 02/07/23 15:52 IMPRESSION: No radiographic evidence of acute cardiopulmonary disease. Electronically Signed: Anali Lopez MD at 16:18 EDT Reading Location ID and State: [place] / Tel , Service support , Assessment & Plan Assessment/Plan (1) Partial bowel obstruction: PLAN: Plan The patient is a 42 y/o F w/ PMHx: Hypothyroidism, Anxiety and Depression, HTN, Crohn's disease who presents to the [facility] ED on 02/07/23 with history of onset at approximately 1 PM on day of presentation nausea and serial bouts of emesis with no diarrhea but severe crampy abdominal pain diffusely with subjective fever at home with last colonoscopy reportedly the year prior and no history of previous abdominal surgeries but given not improving prompted ED evaluation. #1. Acute Sepsis secondary to (Tachycardic, Tachypneic, Elevated WBC, Elevated LA 3.3) secondary to Acute Crohn's Flare/colitis with associated partial SBO: Will admit to PCU, maintain on IVFs, if intractable will place NGT to suction but otherwise upon admit will temporarily hold, strict I&Os, IV pain/anti- emetics PRN, serial KUB as needed to montior bowel function, PPI IV, maintain NPO on bowel rest, initiate and continued on IV zosyn, initiate and maintain on methylprednisone 60 mg IV every 12 hours, continue consultation with Dr. Rousseau GI and Dr. Hilario General surgery. Bld Cx x 2 pending per ED. given current appearance if clinically continues to improve low threshold to allow at least oral medication regimen intake. #2. Hypertension: Given presentation will temporally hold oral propranolol in the interim maintain on IV PRN hydralazine. #3. Hypothyroidism: We will temporarily hold patient home oral levothyroxine, if prolonged may consider one half IV dose. #4. Anxiety and depression: We will temporarily hold patient oral home sertraline, resume once oral intake appropriate. #5. DVT prophylaxis: SCDs. Charges/Coding Visit Charges Inpatient E&M: 08728 Init Hosp L3
[2023-02-07 20:50] LABS: Reflex Lactate? Y
[2023-02-07] MEDS: Ciprofloxacin 400 MG/200 ML BAG 200 MG IV (21:00)
[2023-02-07 23:00] LABS: Lactic Acid 2.7 mmol/L (0.4-1.9)
[2023-02-07] MEDS: 0.9% Normal Saline 1,000 ML 125 ML IV (23:59)
[2023-02-07] MEDS: metroNIDAZOLE 500 MG/100 ML BAG 100 MG IV (23:59)
[2023-02-08 00:10] VITALS: O2SAT 96
[2023-02-08 03:44] VITALS: BP 106/72; PULSE 97; RESP 16; TEMP 37; O2SAT 96
[2023-02-08 05:20] LABS: Absolute Lymphocyte Count 2.16 X10^3/uL (0.83-4.51); Absolute Neutrophil Count 7.2 X10^3/uL (2.0-7.7); Basophil# 0.01 X10^3/uL; Basophil% 0.1 % (0-1); Hematocrit 35.6 % (37-47); Hemoglobin 11.7 g/dL (12.0-15.0); Lymphocyte # 2.16 X10^3/ul (0.83-4.51); Lymphocyte % 22.5 % (19-41); Mean Corp Hgb Conc 32.9 g/dL (32-36); Mean Corpuscular Hgb 30.7 pg (27.0-32.0); Mean Corpuscular Volume 93.4 fL (81-99); Mean Platelet Vol. 8.9 fl (6.2-12.0); Monocyte% 2.1 % (0-10); NRBC Flagged by Analyzer 0 % (0-5); Neutrophil # 7.18 X10^3/uL (2.7-7.7); Neutrophil % 74.8 % (47-70); Platelet Count 408 K/mm3 (150-450); RBC Distribution Width CV 14.8 % (11.6-14.6); RBC Distribution Width SD 51.3 fl (35.1-43.9); Red Blood Count 3.81 M/mm3 (4.2-5.4); White Blood Count 9.6 K/mm3 (4.4-11.0)
[2023-02-08 05:46] VITALS: BMI 41.3
[2023-02-08 06:01] LABS: ALB/GLOB Ratio 0.5 RATIO (0.9-2.4); AST(SGOT) 10 U/L (15-37); Alanine Aminotransfer ALT/SGPT 13 U/L (13-56); Albumin, Serum 2.3 g/dL (3.2-5.0); Alkaline Phosphatase 66 U/L (45-117); Anion Gap 9 (5-15); BUN 9 mg/dL (7-18); BUN/Creat Ratio 10.9 RATIO (10-20); Calcium,Total 7.9 mg/dL (8.5-10.1); Chloride 108 mmol/L (98-107); Creatinine, Serum 0.83 mg/dL (0.55-1.02); EST Glomerular Filtration Rate 80 mL/min (>60); Est Glom Filt Rate - Afr Amer 97 mL/min (>60); Estimated Creatinine Clearance 76.25 ml/min; Globulin 4.4 g/dL (2.2-4.2); Glucose 135 mg/dL (74-106); Potassium 3.4 mmol/L (3.5-5.1); Protein, Total 6.7 g/dL (6.4-8.2); Sodium Level 140 mmol/L (136-145)
--- NOTE | 2023-02-08 07:24 | PN.HOSP_ITS ---
Reason for Visit Reason for Visit: Diagnoses Partial intestinal obstruction, unspecified as to cause (02/07/23) Objective Data Objective Data Vital Signs: Vital Signs Temp Pulse Resp BP Pulse Ox O2 Del Method 98.6 F 97 16 106/72 96 Room Air 02/08/23 03:44 02/08/23 03:44 02/08/23 03:44 02/08/23 03:44 02/08/23 03:44 02/08/23 03:44 Oxygen Delivery Method Room Air Weight: 240 lb 15.444 oz Body Mass Index (BMI) 41.3 Intake & Output: Intake and Output for Last 24 Hours 02/06/23 02/07/23 02/08/23 23:59 23:59 23:59 Intake Total 2200 / 2200 260 / 260 Balance 2200 / 2200 260 / 260 Lab / Micro Data 02/08/23 04:38 02/08/23 04:38 Labs: Laboratory Results - last 24 hr 02/07/23 14:52: WBC 19.9 H, RBC 4.67, Hgb 14.5, Hct 43.3, MCV 92.7, MCH 31.0, MCHC 33.5, RDW Std Deviation 50.3 H, RDW Coeff of Brandan 14.7 H, Plt Count 555 H, MPV 8.7, Immature Gran % (Auto) 0.400, Neut % (Auto) 70.3 H, Lymph % (Auto) 23.1, [place] % (Auto) 5.1, Eos % (Auto) 0.7, Baso % (Auto) 0.4, Absolute Neuts (auto) 14.0 H, Absolute Lymphs (auto) 4.60 H, Nucleated RBC % 0, Sodium Cancelled, Potassium Cancelled, Chloride Cancelled, Carbon Dioxide Cancelled, Anion Gap Cancelled, BUN Cancelled, Creatinine Cancelled, Estim Creat Clear Calc Cancelled, Est GFR (MDRD) Af Amer Cancelled, Est GFR (MDRD) Non-Af Cancelled, BUN/Creatinine Ratio Cancelled, Glucose Cancelled, Calcium Cancelled 02/07/23 16:35: PT 12.9, INR 1.0, APTT 24.3, Sodium 136, Potassium 4.4, Chloride 103, Carbon Dioxide 23.0, Anion Gap 10, BUN 11, Creatinine 0.99, Estim Creat Clear Calc 121.92, Est GFR (MDRD) Af Amer 79, Est GFR (MDRD) Non-Af 65, BUN/Creatinine Ratio 11.1, Glucose 123 H, Lactic Acid 3.3 H*, Calcium 9.5, Total Bilirubin 0.20, AST 20, ALT 14, Alkaline Phosphatase 80, Troponin I High Sens < 3 L, Total Protein 7.9, Albumin 2.6 L, Globulin 5.3 H, Albumin/Globulin Ratio 0.5 L, Lipase 29, Urine Color Yellow, Urine Clarity Clear, Urine pH 6.0, Ur Specific [place] 1.020, Urine Protein Negative, Urine Glucose (UA) Normal, Urine Ketones Negative, Urine Occult Blood 10 H, Urine Nitrite Negative, Urine Bilirubin Negative, Urine Urobilinogen Normal, Ur Leukocyte Esterase Negative, Urine RBC 0 SEEN, Urine WBC 0 SEEN, Ur Squamous Epith Cells 0-5 SEEN, Urine Bacteria RARE, Hyaline Casts 0-5 SEEN, Urine Mucus RARE 02/07/23 22:10: Lactic Acid 2.7 H* 02/08/23 04:38: WBC 9.6, RBC 3.81 L, Hgb 11.7 L, Hct 35.6 L, MCV 93.4, MCH 30.7, MCHC 32.9, RDW Std Deviation 51.3 H, RDW Coeff of Brandan 14.8 H, Plt Count 408, MPV 8.9, Immature Gran % (Auto) 0.500, Neut % (Auto) 74.8 H, Lymph % (Auto) 22.5, [place] % (Auto) 2.1, Eos % (Auto) 0.0, Baso % (Auto) 0.1, Absolute Neuts (auto) 7.2, Absolute Lymphs (auto) 2.16, Nucleated RBC % 0, Sodium 140, Potassium 3.4 L , Chloride 108 H, Carbon Dioxide 23.0, Anion Gap 9, BUN 9, Creatinine 0.83, Estim Creat Clear Calc 76.25, Est GFR (MDRD) Af Amer 97, Est GFR (MDRD) Non-Af 80, BUN/Creatinine Ratio 10.9, Glucose 135 H, Calcium 7.9 L, Total Bilirubin 0.30, AST 10 L, ALT 13, Alkaline Phosphatase 66, Total Protein 6.7, Albumin 2.3 L, Globulin 4.4 H, Albumin/Globulin Ratio 0.5 L Radiography Diagnostic Testing: Radiology Impression Abdomen/Pelvis CT 02/07/23 15:48 IMPRESSION: Partial small bowel obstruction, likely due to Crohn''s disease. Electronically Signed: Anali Lopez MD at 18:28 EDT Reading Location ID and State: [place] / Tel , Service support , Chest X-Ray 02/07/23 15:52 IMPRESSION: No radiographic evidence of acute cardiopulmonary disease. Electronically Signed: Anali Lopez MD at 16:18 EDT Reading Location ID and State: [place] / Tel , Service support , Assessment & Plan Assessment/Plan (1) Partial bowel obstruction: PLAN: Plan The patient is a 42 y/o F was admitted on 02/07/23 with history of onset at approximately 1 PM on day of presentation nausea and serial bouts of emesis with no diarrhea but severe crampy abdominal pain diffusely with subjective fever at home with last colonoscopy reportedly the year prior and no history of previous abdominal surgeries but given not improving prompted ED evaluation. #1. Acute Sepsis secondary to (Tachycardic, Tachypneic, Elevated WBC, Elevated LA 3.3) secondary to Acute Crohn's Flare/colitis with associated partial SBO: There is possibility of of sepsis due to with acute clinical indicators of tachycardia tachypnea leukocytosis most likely due to Crohn's disease colitis complicated into partial SBO sepsis-related organ dysfunction as evidenced by lactic acid. Patient on IV fluid, NG tube suction, n.p.o. on IV antibiotic Zosyn. Blood cultures x2 is ordered. GI Dr. Rousseau and general surgery Dr. Hilario consulted. #2. Hypertension: Antihypertensive on hold #3. Hypothyroidism: We will temporarily hold patient home oral levothyroxine, if prolonged may consider one half IV dose. #4. Anxiety and depression: We will temporarily hold patient oral home sertraline, resume once oral intake appropriate. #5. DVT prophylaxis: SCDs.
[2023-02-08 07:37] VITALS: O2SAT 95
--- NOTE | 2023-02-08 07:39 | CON.PCM.SX_ITS ---
Assessment & Plan Assessment/Plan (1) Crohn disease: (2) Partial bowel obstruction: PLAN: Plan Did personally review his review CT abdomen pelvis. Patient currently denies any nausea vomiting or abdominal pain. Patient did also have a bowel movement this morning. No plans for any general surgery intervention will defer to GI for diet and treatment of Crohn's. Patient was agreeable with plan. Yesica Hilario M.D. Pager: [phone] [facility] [address] [place] [address], Outpatient [place], [address] [place] [address] Office: [phone] HPI Consult Data Date of Consult: 02/08/23 HPI Narrative Reason for Consultation: Partial mall bowel obstruction HPI Narrative: JOHN DENSON, is a 42 F who presents to the ER due to lower abdominal pain start about 1 PM yesterday. Patient has history of Crohn's disease has not been able to afford her medication for about the last year. Patient did have nausea and vomiting with this. Patient did have a bowel movement this morning which was normal for her. Patient denies any constipation or diarrhea today or yesterday. Patient currently states her pain is completely resolved. Patient was started on Zosyn and steroids in the ER. GI was also consulted. [facility] Medical History (Updated 02/07/23 @ 20:[address] Aure Hernandez MD) Anxiety and depression Crohn disease Hypertension Hypothyroidism Obesity Home Medications cholecalciferol (vitamin D3) 125 mcg (5,000 unit) capsule 5,000 unit PO DAILY 10/24/18 [History Last Taken 02/07/23 06:30] desogestrel-ethinyl estradiol 0.1 mg/0.125 mg/0.15 mg-25 mcg tablet (Velivet Triphasic Regimen (28)) 1 tab PO DAILY 10/24/18 [History Last Taken 02/07/23 06:30] levothyroxine 175 mcg tablet 175 mcg PO DAILY 10/24/18 [History Last Taken 02/07/23 06:30] propranolol 40 mg tablet 40 mg PO BID 10/24/18 [History Last Taken 02/07/23 06:30] sertraline 50 mg tablet 50 mg PO DAILY 10/24/18 [History Last Taken 02/07/23 06:30] vitamin B complex (B Complex-Vitamin B12 tablet) 1 tab PO DAILY 02/07/23 [History Last Taken 02/07/23 06:30] Allergy/AdvReac Type Severity Reaction Status Date / Time No Known Allergies Allergy Verified 10/24/18 22:48 Surgical History (Updated 02/07/23 @ 20:[address] Aure Hernandez MD) History of dental surgery Social History (Updated 02/07/23 @ 20:[address] Aure Hernandez MD) household members: spouse Smoking Status: Never smoker alcohol intake: never substance use type: does not use ROS Constitutional Constitutional: Denies chills ENT HEENT: Denies dizziness Cardiovascular Cardiovascular: Denies chest pain Respiratory/Chest Respiratory/Chest: Denies shortness of breath at rest Gastrointestinal Gastrointestinal: Reports abdominal pain, nausea and vomiting; Denies constipation, diarrhea, heartburn, hematemesis or melena Genitourinary Genitourinary: Denies burning urination Musculoskeletal Musculoskeletal: Denies joint pain Integumentary Integumentary: Denies rash Neurologic Neurologic: Denies focal weakness Psychiatric Psychiatric: Denies depression Endocrine Endocrinology: Denies palpitations Hematologic/Lymphatic Hematologic/Lymphatic: Denies easy bleeding or easy bruising Physical Exam Const alert, oriented x3 and no apparent distress HEENT normocephalic and head/scalp atraumatic Neck supple Resp normal respiratory effort Cardio regular rate GI soft to palpation and non-tender; Negative for non-distended Palpation: Negative for guarding Extremity no clubbing, cyanosis or edema Skin no rashes or lesions noted Neuro CN's II-XII intact bilaterally Psych mental status grossly normal Lab / Micro Data 02/08/23 04:38 02/08/23 04:38 Labs: Laboratory Results - last 24 hr 02/07/23 14:52: WBC 19.9 H, RBC 4.67, Hgb 14.5, Hct 43.3, MCV 92.7, MCH 31.0, MCHC 33.5, RDW Std Deviation 50.3 H, RDW Coeff of Brandan 14.7 H, Plt Count 555 H, MPV 8.7, Immature Gran % (Auto) 0.400, Neut % (Auto) 70.3 H, Lymph % (Auto) 23.1, [place] % (Auto) 5.1, Eos % (Auto) 0.7, Baso % (Auto) 0.4, Absolute Neuts (auto) 14.0 H, Absolute Lymphs (auto) 4.60 H, Nucleated RBC % 0, Sodium Cancelled, Potassium Cancelled, Chloride Cancelled, Carbon Dioxide Cancelled, Anion Gap Cancelled, BUN Cancelled, Creatinine Cancelled, Estim Creat Clear Calc Cancelled, Est GFR (MDRD) Af Amer Cancelled, Est GFR (MDRD) Non-Af Cancelled, BUN/Creatinine Ratio Cancelled, Glucose Cancelled, Calcium Cancelled 02/07/23 16:35: PT 12.9, INR 1.0, APTT 24.3, Sodium 136, Potassium 4.4, Chloride 103, Carbon Dioxide 23.0, Anion Gap 10, BUN 11, Creatinine 0.99, Estim Creat Clear Calc 121.92, Est GFR (MDRD) Af Amer 79, Est GFR (MDRD) Non-Af 65, BUN/Creatinine Ratio 11.1, Glucose 123 H, Lactic Acid 3.3 H*, Calcium 9.5, Total Bilirubin 0.20, AST 20, ALT 14, Alkaline Phosphatase 80, Troponin I High Sens < 3 L, Total Protein 7.9, Albumin 2.6 L, Globulin 5.3 H, Albumin/Globulin Ratio 0.5 L, Lipase 29, Urine Color Yellow, Urine Clarity Clear, Urine pH 6.0, Ur Specific [place] 1.020, Urine Protein Negative, Urine Glucose (UA) Normal, Urine Ketones Negative, Urine Occult Blood 10 H, Urine Nitrite Negative, Urine Bilirubin Negative, Urine Urobilinogen Normal, Ur Leukocyte Esterase Negative, Urine RBC 0 SEEN, Urine WBC 0 SEEN, Ur Squamous Epith Cells 0-5 SEEN, Urine Bacteria RARE, Hyaline Casts 0-5 SEEN, Urine Mucus RARE 02/07/23 22:10: Lactic Acid 2.7 H* 02/08/23 04:38: WBC 9.6, RBC 3.81 L, Hgb 11.7 L, Hct 35.6 L, MCV 93.4, MCH 30.7, MCHC 32.9, RDW Std Deviation 51.3 H, RDW Coeff of Brandan 14.8 H, Plt Count 408, MPV 8.9, Immature Gran % (Auto) 0.500, Neut % (Auto) 74.8 H, Lymph % (Auto) 22.5, [place] % (Auto) 2.1, Eos % (Auto) 0.0, Baso % (Auto) 0.1, Absolute Neuts (auto) 7.2, Absolute Lymphs (auto) 2.16, Nucleated RBC % 0, Sodium 140, Potassium 3.4 L , Chloride 108 H, Carbon Dioxide 23.0, Anion Gap 9, BUN 9, Creatinine 0.83, Estim Creat Clear Calc 76.25, Est GFR (MDRD) Af Amer 97, Est GFR (MDRD) Non-Af 80, BUN/Creatinine Ratio 10.9, Glucose 135 H, Calcium 7.9 L, Total Bilirubin 0.30, AST 10 L, ALT 13, Alkaline Phosphatase 66, Total Protein 6.7, Albumin 2.3 L, Globulin 4.4 H, Albumin/Globulin Ratio 0.5 L Radiology Impression Abdomen/Pelvis CT 02/07/23 15:48 IMPRESSION: Partial small bowel obstruction, likely due to Crohn''s disease. Electronically Signed: Anali Lopez MD at 18:28 EDT Reading Location ID and State: [place] MD Tel , Service support , Chest X-Ray 02/07/23 15:52 IMPRESSION: No radiographic evidence of acute cardiopulmonary disease. Electronically Signed: Anali Lopez MD at 16:18 EDT Reading Location ID and State: [place] MD Tel , Service support , Charges/Coding Visit Charges Inpatient E&M: 53751 Init Hosp L3
--- NOTE | 2023-02-08 08:00 | CON.PCM.GI_ITS ---
HPI Consult Data Date of Consult: 02/08/23 HPI Narrative Reason for Consultation: Crohn's disease HPI Narrative: JOHN DENSON, is a 42 y/o female with past medical history hypothyroidism, Anxiety and Depression, HTN, Crohn's disease who presents to the [facility] ED on 02/07/23 with history of previously following with Dr. Ch gastroenterology. Prior on Stelara however unfortunately she has been off since March of last year secondary to insurance coverage issues with onset at approximately 1 PM on day of presentation nausea and serial bouts of emesis. She denied any diarrhea but severe crampy abdominal pain diffusely with subjecti ve fever at home with last colonoscopy reportedly the year prior and no history of previous abdominal surgeries but given not improving prompted ED evaluation. Patient upon ED arrival rated pain 2 out of 10 in severity. Upon Hospitalist evaluation patient notes pain is nearly resolved currently 1 out of 10 in severity. She does report that the evening prior she ate pulled pork which did have CABG however it was cooked and usually she would have issues if it is cooked but this is potentially related she noted. Her ate the same meal and denies any side effects. She did note that she had a normal- appearing bowel movement earlier in the AM on day of presentation. She denies any diarrhea associated with her presentation currently. Work-up in the ED included T97.2, heart initially 103 with most recent repeat 87, BP initially 135/92 with most recent repeat 124/94, respiratory rate up to 20, currently 16, 97 to 100% on room air, CBC with WBC 19.9, hemoglobin 14.5, platelet 555 with left shift and lymphocytosis, unremarkable coags, lactic acid 3.3, glucose 123, troponin less than 3, hepatic profile unremarkable, lipase 29, urinalysis with specific gravity 1.020 otherwise UA not marked appearing, chest x-ray with no acute cardiopulmonary findings, CT abdomen and pelvis with IV contrast with evidence of a partial small bowel obstruction suspected likely secondary to Crohn's disease, blood culture x2 pending per ED, urine culture pending per ED. In the ED patient ministered Zofran 4 mg IV x2, morphine 4 mg IV x1. [facility] Medical History (Updated 02/08/23 @ 12:[address] Darren Bhandari MD) Anxiety and depression Crohn disease Hypertension Hypothyroidism Obesity Home Medications cholecalciferol (vitamin D3) 125 mcg (5,000 unit) capsule 5,000 unit PO DAILY 10/24/18 [History Last Taken 02/07/23 06:30] desogestrel-ethinyl estradiol 0.1 mg/0.125 mg/0.15 mg-25 mcg tablet (Velivet Triphasic Regimen (28)) 1 tab PO DAILY 10/24/18 [History Last Taken 02/07/23 06:30] levothyroxine 175 mcg tablet 175 mcg PO DAILY 10/24/18 [History Last Taken 02/07/23 06:30] propranolol 40 mg tablet 40 mg PO BID 10/24/18 [History Last Taken 02/07/23 06:30] sertraline 50 mg tablet 50 mg PO DAILY 10/24/18 [History Last Taken 02/07/23 06:30] vitamin B complex (B Complex-Vitamin B12 tablet) 1 tab PO DAILY 02/07/23 [History Last Taken 02/07/23 06:30] ciprofloxacin HCl 500 mg tablet (Cipro) 500 mg PO BID 7 days #14 tabs 02/08/23 [Rx Last Taken Unknown] metronidazole 500 mg tablet 500 mg PO TID 7 days #21 tabs 02/08/23 [Rx Last Taken Unknown] prednisone 20 mg tablet See Taper PO DAILY #74 tabs 02/08/23 [Rx Last Taken Unknown] Allergy/AdvReac Type Severity Reaction Status Date / Time No Known Allergies Allergy Verified 10/24/18 22:48 Surgical History (Updated 02/07/23 @ 20:[address] Aure Hernandez MD) History of dental surgery Social History (Updated 02/07/23 @ 20:[address] Aure Hernandez MD) household members: spouse Smoking Status: Never smoker alcohol intake: never substance use type: does not use ROS Constitutional Constitutional: Denies chills ENT HEENT: Denies dizziness Cardiovascular Cardiovascular: Denies chest pain Respiratory/Chest Respiratory/Chest: Denies shortness of breath at rest Gastrointestinal Gastrointestinal: Reports abdominal pain, nausea and vomiting; Denies constipation, diarrhea, heartburn, hematemesis or melena Genitourinary Genitourinary: Denies burning urination Musculoskeletal Musculoskeletal: Denies joint pain Integumentary Integumentary: Denies rash Neurologic Neurologic: Denies focal weakness Psychiatric Psychiatric: Denies depression Endocrine Endocrinology: Denies palpitations Hematologic/Lymphatic Hematologic/Lymphatic: Denies easy bleeding or easy bruising Physical Exam Narrative Seen and examined. Denies abdominal pain. Moving bowel. No dysuria or new LUTS. Physical exam General: Alert, Oriented x3, Cooperative. BMI 41.4 kg/m?, morbid obesity HEENT: Atraumatic, PERRLA, EOMI, Normocephalic Oral: Oral mucosa moist. No Gingival or Mucosal Lesions/ Ulcerations Neck: Supple, No JVD, Negative Carotid Bruits Lungs: Air entry diminished in bilateral lung bases. No crepitation/rhonchi Cardiovascular: Regular rate, Regular Rhythm, Normal S1, Normal S2, No murmurs Abdomen: Bowel Sounds sluggish, soft, Non Tender, Non-Distended : No renal angle tenderness. No suprapubic tenderness. Extremities: No edema, Capillary Refill Less than 3 Seconds Skin: No rashes, No breakdown Musculoskeletal: No Tenderness to Palpation of Joints or Extremities Neurological: Cranial nerves II-XII grossly intact, DTR 2+/4. No acute focal neurological deficit. Psych/Mental Status: Normal Affect, Appropriate. Lab / Micro Data 02/08/23 04:38 02/08/23 04:38 Labs: Laboratory Results - last 24 hr 02/07/23 14:52: Sodium Cancelled, Potassium Cancelled, Chloride Cancelled, Carbon Dioxide Cancelled, Anion Gap Cancelled, BUN Cancelled, Creatinine C ancelled, Estim Creat Clear Calc Cancelled, Est GFR (MDRD) Af Amer Cancelled, Est GFR (MDRD) Non-Af Cancelled, BUN/Creatinine Ratio Cancelled, Glucose Cancelled, Calcium Cancelled 02/07/23 16:35: PT 12.9, INR 1.0, APTT 24.3, Sodium 136, Potassium 4.4, Chloride 103, Carbon Dioxide 23.0, Anion Gap 10, BUN 11, Creatinine 0.99, Estim Creat Clear Calc 121.92, Est GFR (MDRD) Af Amer 79, Est GFR (MDRD) Non-Af 65, BUN/Creatinine Ratio 11.1, Glucose 123 H, Lactic Acid 3.3 H*, Calcium 9.5, Total Bilirubin 0.20, AST 20, ALT 14, Alkaline Phosphatase 80, Troponin I High Sens < 3 L, Total Protein 7.9, Albumin 2.6 L, Globulin 5.3 H, Albumin/Globulin Ratio 0 .5 L, Lipase 29, Urine Color Yellow, Urine Clarity Clear, Urine pH 6.0, Ur Specific [place] 1.020, Urine Protein Negative, Urine Glucose (UA) Normal, Urine Ketones Negative, Urine Occult Blood 10 H, Urine Nitrite Negative, Urine Bilirubin Negative, Urine Urobilinogen Normal, Ur Leukocyte Esterase Negative, Urine RBC 0 SEEN, Urine WBC 0 SEEN, Ur Squamous Epith Cells 0-5 SEEN, Urine Bacteria RARE, Hyaline Casts 0-5 SEEN, Urine Mucus RARE 02/07/23 22:10: Lactic Acid 2.7 H* 02/08/23 04:38: WBC 9.6, RBC 3.81 L, Hgb 11.7 L, Hct 35.6 L, MCV 93.4, MCH 30.7, MCHC 32.9, RDW Std Deviation 51.3 H, RDW Coeff of Brandan 14.8 H, Plt Count 408, MPV 8.9, Immature Gran % (Auto) 0.500, Neut % (Auto) 74.8 H, Lymph % (Auto) 22.5, [place] % (Auto) 2.1, Eos % (Auto) 0.0, Baso % (Auto) 0.1, Absolute Neuts (auto) 7.2, Absolute Lymphs (auto) 2.16, Nucleated RBC % 0, Sodium 140, Potassium 3.4 L , Chloride 108 H, Carbon Dioxide 23.0, Anion Gap 9, BUN 9, Creatinine 0.83, Estim Creat Clear Calc 76.25, Est GFR (MDRD) Af Amer 97, Est GFR (MDRD) Non-Af 80, BUN/Creatinine Ratio 10.9, Glucose 135 H, Calcium 7.9 L, Total Bilirubin 0.30, AST 10 L, ALT 13, Alkaline Phosphatase 66, Total Protein 6.7, Albumin 2.3 L, Globulin 4.4 H, Albumin/Globulin Ratio 0.5 L Radiology Impression Abdomen/Pelvis CT 02/07/23 15:48 IMPRESSION: Partial small bowel obstruction, likely due to Crohn''s disease. Electronically Signed: Anali Lopez MD at 18:28 EDT Reading Location ID and State: [id number] / Tel , Service support , KUB X-Ray 02/08/23 10:50 IMPRESSION: No abnormality of the visualized lower chest, abdomen or pelvis. Electronically Signed: Martinez De La Torre MD at 11:45 EDT , Assessment & Plan Assessment/Plan (1) Partial bowel obstruction: QUALIFIERS: Intestinal obstruction type: unspecified Qualified Code(s): K56.600 - Partial intestinal obstruction, unspecified as to cause PLAN: Plan The patient is a 42 y/o F w/ PMHx: Hypothyroidism, Anxiety and Depression, HTN, Crohn's disease who presents to the [facility] ED on 02/07/23 with history of onset at approximately 1 PM on day of presentation nausea and serial bouts of emesis with no diarrhea but severe crampy abdominal pain diffusely with subjective fever at home with last colonoscopy reportedly the year prior and no history of previous abdominal surgeries but given not improving prompted ED evaluation. #1. Acute Sepsis secondary to (Tachycardic, Tachypneic, Elevated WBC, Elevated LA 3.3) secondary to Acute Crohn's Flare/colitis with associated partial SBO: Will admit to PCU, maintain on IVFs, if intractable will place NGT to suction but otherwise upon admit will temporarily hold, strict I&Os, IV pain/anti- emetics PRN, serial KUB as needed to montior bowel function, PPI IV, maintain NPO on bowel rest, initiate and continued on IV zosyn, initiate and maintain on methylprednisone 60 mg IV every 12 hours,. Bld Cx x 2 pending per ED. given current appearance if clinically continues to improve low threshold to allow at least oral medication regimen intake. Charges/Coding Visit Charges Inpatient E&M: 31229 Init Hosp L3
[2023-02-08] MEDS: 0.9% Normal Saline 1,000 ML 125 ML IV (08:44)
--- NOTE | 2023-02-08 10:25 | DCINST_ITS ---
Discharge Instructions Diet Discharge Diet: Light diet - advance as tolerated Activity Discharge Activity: Return to Normal Activity Weight Bearing Status: Weight bearing as tolerated Dressing / Incision Call your doctor if you observe: Fever of 101 or Higher, Coldness, Increased Pain, Numbness or Tingling, Change in Color, Inability to urinate, Inability to have a bowel movement, Using more than 1 pad per hour, Shortness of breath, Dizziness, Fainting spells, Swelling in the ankles, Chest pain, Prolonged hiccupping, Increased palpitations (irregular heartbeat) and Calf discomfort Follow Up Care When: IN 2 WEEKS Test Results: Test results from this visit will be discussed in further detail at your follow- up appointment, if applicable. Discharge Plan Admission Admit Date/Time: 02/07/23 20:02 Primary Reason for Your Visit: Crohn's disease exacerbation. Attending Provider: Darren Bhandari Primary Care Provider: Johanna Saldivar Consulting Providers: Yesica Hilario; Aure Hernandez Instructions Additional Instructions / Restrictions: Advised follow-up with GI DrCelia Rousseau. Patient will need MR enterography to further evaluate long segment of ileal stricture. Discharge Orders/Prescriptions Prescriptions: New ciprofloxacin HCl [Cipro] 500 mg tablet 500 mg PO BID 7 Days Qty: 14 0RF metronidazole 500 mg tablet 500 mg PO TID 7 Days Qty: 21 0RF prednisone 20 mg tablet See Taper PO DAILY Qty: 74 0RF Taper: Prednisone Taper 60 mg WITH BREAKFAST for 7 Days and 0 Hour 50 mg WITH BREAKFAST for 7 Days and 0 Hour 40 mg WITH BREAKFAST for 7 Days and 0 Hour 30 mg WITH BREAKFAST for 7 Days and 0 Hour 20 mg WITH BREAKFAST for 7 Days and 0 Hour 10 mg WITH BREAKFAST for 7 Days and 0 Hour Rx Instructions: 60mg for 1 week, then 50mg for 1 week, 40mg for 1 week, 30mg for 1 week, 20mg for 1 week and 10mg 1 week. Continued levothyroxine 175 MCG tablet 175 mcg PO DAILY Patient Comments: TAKE ONE TABLET BY MOUTH 6 DAYS A WEEK Velivet Triphasic Regimen (28) 1 EACH tablet 1 tab PO DAILY Patient Comments: TAKE 1 TABLET BY MOUTH EVERY DAY propranolol 40 MG tablet 40 mg PO BID sertraline 50 MG tablet 50 mg PO DAILY Patient Comments: TAKE 1 TABLET BY MOUTH EVERY DAY cholecalciferol (vitamin D3) 5,000 UNIT capsule 5,000 unit PO DAILY vitamin B complex [B Complex-Vitamin B12] Tablet 1 tab PO DAILY Referrals / Follow Up: Johanna Saldivar MD [Primary Care Provider] - Friend,DO Mir [Med Staff - Active Staff] - Within 1 Month (Crohn's disease exacerbation) Disposition Disposition (needs filled in before D/C Order can be placed): Home, Self Care
[2023-02-08 10:28] VITALS: BP 128/88; PULSE 89; RESP 18; TEMP 36.5; O2SAT 96
[2023-02-08] MEDS: 0.9% Saline Lock 10 ML Syringe IV ×2 (10:30)
--- NOTE | 2023-02-08 10:35 | CASEMGMT ---
RN CM Face to Face with patient for initial transition planning/care coordination assessment. RN CM introduced self and role at [facility]. Patient lying in bed, alert and oriented, boyfriend at bedside. Patient willing to participate in assessment and is able to answer all questions appropriately. Care providers, pharmacy, and demographics verified. Patient wishes to discharge home, denies need for home health at this time. Patient states she has no further needs or concerns at this time. CM to follow for discharge planning needs that may arise. PCP: Yariel Specialists: none Preferred Pharmacy: [facility] Insurance: [employer] Prescription Benefit: yes Living Will/HPOA: has living will, no HPOA LNOK: mother, boyfriend Living Arrangements: Patient lives with boyfriend in a single story home with no steps to enter. Patient states she was independent at home. Transportation: self, boyfriend DME/HHC: Patient to discharge home with cane, crutches, and walking boot at home. No previous HHC or SNF. Disposition Plan: Patient to discharge home with family support and follow-up plans in place. Mary BUSH, RN, CM
--- NOTE | 2023-02-08 10:50 | RAD_ITS ---
STUDY: X-RAY - ABDOMEN/PELVIS REASON FOR EXAM: Female, 42 years old. Evaluate for partial small bowel obstruction. TECHNIQUE: Single AP view of the abdomen / pelvis on 2 images. COMPARISON: None. FINDINGS: Normal visualized lung bases. Normal bowel gas pattern with air seen to the distal descending segment of the colon. No disproportionate dilatation of bowel or free air. The visualized liver, spleen and kidneys are grossly normal in size and morphology. Normal soft tissue structures. Normal visualized osseous structures. RAD/Abdomen Single View (Portable) IMPRESSION: No abnormality of the visualized lower chest, abdomen or pelvis. Electronically Signed: Martinez De La Torre MD at 11:45 EDT ,
[2023-02-08] MEDS: MethylPREDNISolone 125 MG/2 ML Vial 60 MG IV (11:10)
--- NOTE | 2023-02-08 12:40 | DS.PCM_ITS ---
Providers Date of Admission: 02/07/23 Date of Discharge: 02/08/23 Primary Care Physician: Dr. Johanna Saldivar MD Consultations 02/07/23 22:06 Consult: Gastroenterology Routine Consulting Provider: [facility] Reason for Consult: pSBO, Crohns flare EMERGENT Consult: No Notified: Yes Date Notified: 02/07/23 Time Notified: 20:04 Method of Notification: Verbal Consult: General Surgery Routine Consulting Provider: Yesica Hilario Reason for Consult: pSBO in setting Crohns disease EMERGENT Consult: No Notified: Yes Date Notified: 02/07/23 Time Notified: 20:04 Method of Notification: Verbal Reason For Visit: SEPSIS, CHRONS FLARE, PSBO Diagnosis Discharge Diagnosis (1) Crohn disease: Status: Acute Code(s): K50.90 - Crohn's disease, unspecified, without complications Qualifiers: Gastrointestinal tract location: small intestine (2) Partial bowel obstruction: Status: Acute Code(s): K56.600 - Partial intestinal obstruction, unspecified as to cause Qualifiers: Intestinal obstruction type: unspecified Qualified Code(s): K56.600 - Partial intestinal obstruction, unspecified as to cause Plan The patient is a 42 y/o F was admitted on 02/07/23 with history of onset at approximately 1 PM on day of presentation nausea and serial bouts of emesis with no diarrhea but severe crampy abdominal pain diffusely with subjective fever at home with last colonoscopy reportedly the year prior and no history of previous abdominal surgeries but given not improving prompted ED evaluation. #1. Acute Crohn's Flare/colitis: Patient was admitted in PCU. She does not look toxic to me when seen in the morning although she had Tachycardic, Tachypneic, Elevated WBC, Elevated LA 3.3 during admission. She denies abdominal pain. Lactic acid may be elevated due to Crohn's disease exacerbation/hypoperfusion. Sepsis ruled out. She moved to 3 bowel movements in the morning and passing flatus. Patient treated with IV fluid on IV Zosyn. Does not have NG tube and does not require it. Patient was seen by surgeon and no indication for surgical intervention. GI is consulted. Patient wants to go home. Patient was on [facility] last year around January when she had colonoscopy but she could not afford because of insurances and therefore self discontinued. Discussed with the GI will need to follow-up in GI clinic. As per the patient last colonoscopy was not grossly abnormal as told by Dr. Butler to her. Patient was empirically treated with IV antibiotics Zosyn were discontinued. Blood cultures x2 urine culture pending but patient afebrile here. Patient had CT abdomen which shows multiple dilated loops of ileum consistent with partial SBO. Distal/terminal ileitis. She had CT abdomen in October 2018 and at that time obstruction was mild low-grade and partial with no abscess or evidence of perforation with mild wall thickening of the distal terminal ileum with areas of luminal narrowing and dilatation. Discussed with the GI and patient needs long tapering course of prednisone. Patient discharged on prednisone 60 mg daily for 1 week then, taper by 10 mg every week to 10 mg daily to continue. Cipro and Flagyl for 1 week. Patient needs to follow-up in GI clinic in 1 month as she will need MR enterography. Prescription sent to retail pharmacy. #2. Hypertension: Antihypertensive on hold #3. Hypothyroidism: We will temporarily hold patient home oral levothyroxine, if prolonged may consider one half IV dose. #4. Anxiety and depression: We will temporarily hold patient oral home sertraline, resume once oral intake appropriate. #5. DVT prophylaxis: SCDs. Discharge medication reconciliation done. Discharge follow-up instructions completed. Discharge process discussed with the patient and all questions were answered to patient's satisfaction. Total time spent, exact 35 minutes on discharge meds reconciliation, ex amination, coordination of care with nurses and ancillary staff, review of imaging and blood test and discussion with the patient on follow-up instructions. Medications at Discharge Home Medications cholecalciferol (vitamin D3) 125 mcg (5,000 unit) capsule 5,000 unit PO DAILY 10/24/18 desogestrel-ethinyl estradiol 0.1 mg/0.125 mg/0.15 mg-25 mcg tablet (Velivet Triphasic Regimen (28)) 1 tab PO DAILY 10/24/18 levothyroxine 175 mcg tablet 175 mcg PO DAILY 10/24/18 propranolol 40 mg tablet 40 mg PO BID 10/24/18 sertraline 50 mg tablet 50 mg PO DAILY 10/24/18 vitamin B complex (B Complex-Vitamin B12 tablet) 1 tab PO DAILY 02/07/23 ciprofloxacin HCl 500 mg tablet (Cipro) 500 mg PO BID 7 days #14 tabs 02/08/23 metronidazole 500 mg tablet 500 mg PO TID 7 days #21 tabs 02/08/23 prednisone 20 mg tablet See Taper PO DAILY #74 tabs 02/08/23 Physical Exam Narrative Seen and examined. Denies abdominal pain. Moving bowel. No dysuria or new LUTS. Physical exam General: Alert, Oriented x3, Cooperative. BMI 41.4 kg/m?, morbid obesity HEENT: Atraumatic, PERRLA, EOMI, Normocephalic Oral: Oral mucosa moist. No Gingival or Mucosal Lesions/ Ulcerations Neck: Supple, No JVD, Negative Carotid Bruits Lungs: Air entry diminished in bilateral lung bases. No crepitation/rhonchi Cardiovascular: Regular rate, Regular Rhythm, Normal S1, Normal S2, No murmurs Abdomen: Bowel Sounds sluggish, soft, Non Tender, Non-Distended : No renal angle tenderness. No suprapubic tenderness. Extremities: No edema, Capillary Refill Less than 3 Seconds Skin: No rashes, No breakdown Musculoskeletal: No Tenderness to Palpation of Joints or Extremities Neurological: Cranial nerves II-XII grossly intact, DTR 2+/4. No acute focal neurological deficit. Psych/Mental Status: Normal Affect, Appropriate. Weight / BMI Weight Weight: 240 lb 15.444 oz Body Mass Index (BMI) 41.3 ABG / Lab / Microbiology Data 02/08/23 04:38 02/08/23 04:38 Laboratory: Laboratory Results - last 24 hr 02/07/23 14:52: WBC 19.9 H, RBC 4.67, Hgb 14.5, Hct 43.3, MCV 92.7, MCH 31.0, MCHC 33.5, RDW Std Deviation 50.3 H, RDW Coeff of Brandan 14.7 H, Plt Count 555 H, MPV 8.7, Immature Gran % (Auto) 0.400, Neut % (Auto) 70.3 H, Lymph % (Auto) 23.1, [place] % (Auto) 5.1, Eos % (Auto) 0.7, Baso % (Auto) 0.4, Absolute Neuts (auto) 14.0 H, Absolute Lymphs (auto) 4.60 H, Nucleated RBC % 0, Sodium Cancelled, Potassium Cancelled, Chloride Cancelled, Carbon Dioxide Cancelled, Anion Gap Cancelled, BUN Cancelled, Creatinine Cancelled, Estim Creat Clear Calc Cancelled, Est GFR (MDRD) Af Amer Cancelled, Est GFR (MDRD) Non-Af Cancelled, BUN/Creatinine Ratio Cancelled, Glucose Cancelled, Calcium Cancelled 02/07/23 16:35: PT 12.9, INR 1.0, APTT 24.3, Sodium 136, Potassium 4.4, Chloride 103, Carbon Dioxide 23.0, Anion Gap 10, BUN 11, Creatinine 0.99, Estim Creat Clear Calc 121.92, Est GFR (MDRD) Af Amer 79, Est GFR (MDRD) Non-Af 65, BUN/Creatinine Ratio 11.1, Glucose 123 H, Lactic Acid 3.3 H*, Calcium 9.5, Total Bilirubin 0.20, AST 20, ALT 14, Alkaline Phosphatase 80, Troponin I High Sens < 3 L, Total Protein 7.9, Albumin 2.6 L, Globulin 5.3 H, Albumin/Globulin Ratio 0.5 L, Lipase 29, Urine Color Yellow, Urine Clarity Clear, Urine pH 6.0, Ur Specific [place] 1.020, Urine Protein Negative, Urine Glucose (UA) Normal, Urine Ketones Negative, Urine Occult Blood 10 H, Urine Nitrite Negative, Urine Bilirubin Negative, Urine Urobilinogen Normal, Ur Leukocyte Esterase Negative, Urine RBC 0 SEEN, Urine WBC 0 SEEN, Ur Squamous Epith Cells 0-5 SEEN, Urine Bacteria RARE, Hyaline Casts 0-5 SEEN, Urine Mucus RARE 02/07/23 22:10: Lactic Acid 2.7 H* 02/08/23 04:38: WBC 9.6, RBC 3.81 L, Hgb 11.7 L, Hct 35.6 L, MCV 93.4, MCH 30.7, MCHC 32.9, RDW Std Deviation 51.3 H, RDW Coeff of Brandan 14.8 H, Plt Count 408, MPV 8.9, Immature Gran % (Auto) 0.500, Neut % (Auto) 74.8 H, Lymph % (Auto) 22.5, [place] % (Auto) 2.1, Eos % (Auto) 0.0, Baso % (Auto) 0.1, Absolute Neuts (auto) 7.2, Absolute Lymphs (auto) 2.16, Nucleated RBC % 0, Sodium 140, Potassium 3.4 L , Chloride 108 H, Carbon Dioxide 23.0, Anion Gap 9, BUN 9, Creatinine 0.83, Estim Creat Clear Calc 76.25, Est GFR (MDRD) Af Amer 97, Est GFR (MDRD) Non-Af 80, BUN/Creatinine Ratio 10.9, Glucose 135 H, Calcium 7.9 L, Total Bilirubin 0.30, AST 10 L, ALT 13, Alkaline Phosphatase 66, Total Protein 6.7, Albumin 2.3 L, Globulin 4.4 H, Albumin/Globulin Ratio 0.5 L Radiography Diagnostic Testing: Radiology Impression Abdomen/Pelvis CT 02/07/23 15:48 IMPRESSION: Partial small bowel obstruction, likely due to Crohn''s disease. Electronically Signed: Anali Lopez MD at 18:28 EDT Reading Location ID and State: [id number] / Tel , Service support , Chest X-Ray 02/07/23 15:52 IMPRESSION: No radiographic evidence of acute cardiopulmonary disease. Electronically Signed: Anali Lopez MD at 16:18 EDT Reading Location ID and State: Berenice Almendarez MD Tel , Service support , KUB X-Ray 02/08/23 10:50 IMPRESSION: No abnormality of the visualized lower chest, abdomen or pelvis. Electronically Signed: Martinez De La Torre MD at 11:45 EDT , D/C Instructions Discharge Diet: Light diet - advance as tolerated Weight Bearing Status: Weight bearing as tolerated Call your doctor if you observe: Fever of 101 or Higher, Coldness, Increased Pain, Numbness or Tingling, Change in Color, Inability to urinate, Inability to have a bowel movement, Using more than 1 pad per hour, Shortness of breath, Dizziness, Fainting spells, Swelling in the ankles, Chest pain, Prolonged hiccupping, Increased palpitations (irregular heartbeat) and Calf discomfort When: IN 2 WEEKS Meaningful Use Info Meaningful Use Diagnoses (Choose all that apply): None applicable Discharge Plan Admission Admit Date/Time: 02/07/23 20:02 Primary Reason for Your Visit: Crohn's disease exacerbation. Attending Provider: Darren Bhandari Primary Care Provider: Johanna Saldivar Consulting Providers: Yesica Hilario; Aure Hernandez Instructions Additional Instructions / Restrictions: Advised follow-up with GI DrCelia Rousseau. Patient will need MR enterography to further evaluate long segment of ileal stricture. Discharge Orders/Prescriptions Prescriptions: New ciprofloxacin HCl [Cipro] 500 mg tablet 500 mg PO BID 7 Days Qty: 14 0RF metronidazole 500 mg tablet 500 mg PO TID 7 Days Qty: 21 0RF prednisone 20 mg tablet See Taper PO DAILY Qty: 74 0RF Taper: Prednisone Taper 60 mg WITH BREAKFAST for 7 Days and 0 Hour 50 mg WITH BREAKFAST for 7 Days and 0 Hour 40 mg WITH BREAKFAST for 7 Days and 0 Hour 30 mg WITH BREAKFAST for 7 Days and 0 Hour 20 mg WITH BREAKFAST for 7 Days and 0 Hour 10 mg WITH BREAKFAST for 7 Days and 0 Hour Rx Instructions: 60mg for 1 week, then 50mg for 1 week, 40mg for 1 week, 30mg for 1 week, 20mg for 1 week and 10mg 1 week. Continued levothyroxine 175 MCG tablet 175 mcg PO DAILY Patient Comments: TAKE ONE TABLET BY MOUTH 6 DAYS A WEEK Velivet Triphasic Regimen (28) 1 EACH tablet 1 tab PO DAILY Patient Comments: TAKE 1 TABLET BY MOUTH EVERY DAY propranolol 40 MG tablet 40 mg PO BID sertraline 50 MG tablet 50 mg PO DAILY Patient Comments: TAKE 1 TABLET BY MOUTH EVERY DAY cholecalciferol (vitamin D3) 5,000 UNIT capsule 5,000 unit PO DAILY vitamin B complex [B Complex-Vitamin B12] Tablet 1 tab PO DAILY Referrals / Follow Up: Johanna Saldivar MD [Primary Care Provider] - Mir Rousseau DO [Med Staff - Active Staff] - Within 1 Month (Crohn's disease exacerbation) Disposition Disposition (needs filled in before D/C Order can be placed): Home, Self Care Charges/Coding Visit Charges Inpatient E&M: 66365 Disch Hosp >30min
[2023-02-08 14:58] VITALS: BP 128/87; PULSE 91; RESP 18; TEMP 36.7; O2SAT 94
== END 2023-02-08 15:24 | disposition home or self-care (01) | DRG 386 ==
LOC: ED 16:30 → PCU 20:43
PROVIDERS: Admitting Provider Family Medicine; Emergency Provider Student in an Organized Health Care Education/Training Program; PCP Family Medicine; Visit Provider Internal Medicine
DX: K50.012 Crohn's disease of small intestine with intestinal obstruction (principal); Z68.41 Body mass index [BMI] 40.0-44.9, adult; E03.9 Hypothyroidism, unspecified; E66.01 Morbid (severe) obesity due to excess calories; I10 Essential (primary) hypertension; F32.A Depression, unspecified; F41.9 Anxiety disorder, unspecified; Z79.899 Other long term (current) drug therapy
CPT/HCPCS: 36415; 71045; 74018; 74177; 80048; 80053; 81001; 83605; 83690; 84484; 85025; 85610; 85730; 87040; 87086; 87088; 93005; 94668; 99252; 99285; J7030; J7050; Q9967; A4216; G0463; J0744; J2405

== ENCOUNTER → 2023-03-08 | Outpatient (CLI) | payer OTHER, SELFPAY ==
[2023-03-08 15:03] LABS: Erythrocyte Sedimentation Rate 30 mm/hr (0-30)
[2023-03-08 15:05] LABS: Absolute Neutrophil Count 11.1 X10^3/uL (2.0-7.7); Basophil# 0.04 X10^3/uL; Basophil% 0.3 % (0-1); Eosinophil# 0.01 X10^3/uL; Eosinophils% 0.1 % (0-5); Hematocrit 40.8 % (37-47); Hemoglobin 12.7 g/dL (12.0-15.0); Lymphocyte % 16.2 % (19-41); Mean Corp Hgb Conc 31.1 g/dL (32-36); Mean Corpuscular Hgb 30.4 pg (27.0-32.0); Mean Corpuscular Volume 97.6 fL (81-99); Monocyte# 0.18 X10^3/uL; Monocyte% 1.3 % (0-10); NRBC Flagged by Analyzer 0 % (0-5); Neutrophil # 11.07 X10^3/uL (2.7-7.7); Neutrophil % 81.3 % (47-70); Platelet Count 434 K/mm3 (150-450); RBC Distribution Width CV 14.6 % (11.6-14.6); RBC Distribution Width SD 52.9 fl (35.1-43.9); Red Blood Count 4.18 M/mm3 (4.2-5.4); White Blood Count 13.6 K/mm3 (4.4-11.0)
[2023-03-08 15:54] LABS: ALB/GLOB Ratio 0.6 RATIO (0.9-2.4); AST(SGOT) 11 U/L (15-37); Alanine Aminotransfer ALT/SGPT 18 U/L (13-56); Albumin, Serum 2.6 g/dL (3.2-5.0); Alkaline Phosphatase 61 U/L (45-117); Anion Gap 11 (5-15); BUN 12 mg/dL (7-18); BUN/Creat Ratio 11.4 RATIO (10-20); Calcium,Total 8.5 mg/dL (8.5-10.1); Chloride 107 mmol/L (98-107); Creatinine, Serum 1.05 mg/dL (0.55-1.02); EST Glomerular Filtration Rate 61 mL/min (>60); Est Glom Filt Rate - Afr Amer 74 mL/min (>60); Globulin 4.3 g/dL (2.2-4.2); Glucose 205 mg/dL (74-106); LDH 166 U/L (84-246); Potassium 3.7 mmol/L (3.5-5.1); Protein, Total 6.9 g/dL (6.4-8.2); Sodium Level 138 mmol/L (136-145)
[2023-03-08 16:58] LABS: Rubella IgG Reactive (Nonreactive)
[2023-03-10 13:07] LABS: Anti-Centromere B Ab <0.2 AI (0.0-0.9); Anti-Chromatin <0.2 AI (0.0-0.9); Anti-Jo <0.2 AI (0.0-0.9); Anti-Scleroderma-70 AB <0.2 AI (0.0-0.9); Anti-dsDNA Ab 1 IU/mL (0-9); RNP Ab <0.2 AI (0.0-0.9); SJOGREN'S Anti-SS-A test < 0.2 AI (0.0-0.9); SJOGREN'S Anti-SS-B test < 0.2 AI (0.0-0.9); Smith Ab <0.2 AI (0.0-0.9)
[2023-03-14 00:07] LABS: Albumin 3.1 g/dL (2.9-4.4); Alpha-1-Globulins 0.3 g/dL (0.0-0.4); Alpha-2-Globulins 0.8 g/dL (0.4-1.0); B. pertussis IgG 3.39 index (0.00-0.94); Cytoplasmic Ab (C-ANCA) <1:20 titer (Neg:<1:20); Endomysial Antibody IgA Negative (Negative); Gamma Globulin 0.9 g/dL (0.4-1.8); HEPATITIS B SURFACE AG Negative (Negative); Hep C Antibodies Non Reactive (Non Reactive); Hepatitis A IgM Antibody Negative (Negative); Hepatitis B Core AB IgM Negative (Negative); Immunoglobulin A 350 mg/dL (87-352); Immunoglobulin E 48 IU/mL (6-495); Immunoglobulin G 925 mg/dL (586-1602); Immunoglobulin M 144 mg/dL (26-217); Mumps Antibody, IgM < 0.80 AU (0.00-0.79); PROEL- TOTAL PROTEIN 6.3 g/dL (6.0-8.5); Perinuclear Ab (P-ANCA) <1:20 titer (Neg:<1:20); QNTFERON TB Nil Value 0.01 IU/mL (.); QNTFERON TB1+ Ag Value 0.01 IU/mL (.); QNTFERON TB2+ Ag Value 0.01 IU/mL (.); QNTIFERON TB Positive Criteria Negative (Negative); V-Zoster IgG (Immunity) 757 index (Immune >165); t-Transglutaminase IgA <2 U/mL (0-3)
== END | disposition home or self-care (01) ==
PROVIDERS: PCP Family Medicine; Referring Provider Internal Medicine Gastroenterology; Visit Provider Internal Medicine Gastroenterology
DX: K50.90 Crohn's disease, unspecified, without complications (principal)
CPT/HCPCS: 36415; 80053; 80074; 82784; 82785; 83516; 83615; 84165; 85025; 85652; 86140; 86225; 86235; 86255; 86256; 86334; 86480; 86615; 86735; 86762; 86787

== ENCOUNTER → 2023-04-13 | Outpatient (CLI) | payer OTHER, SELFPAY ==
--- NOTE | 2023-04-13 12:05 | MRI_ITS ---
MR Enterography Abdomen/Pelvis WO/W Contrast 04/13/2023 1:13 PM COMPARISON: CT 02/07/2023 CLINICAL HISTORY: K50.90 - Crohn''s disease, unspecified, without complications TECHNIQUE: Following oral administration of enteric contrast and administration of glucagon, multiplanar T1 and T2 weighted images along with dynamic post-gadolinium images were obtained through the abdomen and pelvis. FINDINGS: GI Tract: Multiple short segment loops of small bowel demonstrate mild circumferential wall thickening and mucosal hyperenhancement. The distal and terminal ileum is thickened as well with multiple ulcerations and demonstrates layered wall enhancement. There is also questionable mild stricturing of the distal/terminal ileum. There is also a short segment of sigmoid colon demonstrating mild circumferential wall thickening. No fistula, or obstruction. No drainable fluid collections. Liver: Unremarkable Gallbladder: Unremarkable Spleen: Unremarkable Pancreas: Unremarkable Adrenal Glands: Unremarkable Kidneys: Unremarkable Reproductive: Unremarkable Bladder: Unremarkable Lymphadenopathy: Absent Ascites: Absent Bones: No suspicious lesions MRI/Enterography Abd/Pel IMPRESSION: Findings consistent with acute flare of Crohn''s disease with questionable mild stricturing of the distal/terminal ileum. Layered enhancement pattern of the distal/terminal ileum likely indicates long-standing chronic disease. No fistula, or obstruction. No drainable fluid collections. Electronically Signed: Jim Garcia MD at 22:35 EST ,
[2023-04-13 12:16] VITALS: BP 147/93; PULSE 66; RESP 16; O2SAT 97; BMI 41.1
[2023-04-13] MEDS: Glucagon 1 MG/ML Syringe IV (13:33)
[2023-04-13 13:48] VITALS: BP 179/95; PULSE 94; RESP 16; O2SAT 97
== END | disposition home or self-care (01) ==
LOC: MRI 11:28
PROVIDERS: PCP Family Medicine; Referring Provider Internal Medicine Gastroenterology; Visit Provider Internal Medicine Gastroenterology
DX: K50.90 Crohn's disease, unspecified, without complications (principal)
CPT/HCPCS: 74183; 96374; A9575; A4216; J1610

== ENCOUNTER → 2023-06-15 | Outpatient (CLI) | payer OTHER, SELFPAY ==
--- NOTE | 2023-06-15 08:18 | MRI_ITS ---
EXAM: MR PELVIS WITHOUT AND WITH INTRAVENOUS CONTRAST CLINICAL INDICATION: ? fistulizing Crohn''s disease of anus TECHNIQUE: Multiplanar and multisequence MR images of the pelvis without and with intravenous contrast. CONTRAST: IV 23 Clariscan COMPARISON: No relevant prior studies available. FINDINGS: BOWEL: The partially visualized terminal ilium is thick-walled consistent with the patient''s history of Crohn''s disease. Uterus measures 7.2 cm in length. APPENDIX: No evidence of acute appendicitis. INTRAPERITONEAL SPACE: Normal. No ascites or other fluid collection. BLADDER: Normal. OVARIES: Right ovary measures 2.4 x 2.0 cm and contains a 12 mm follicle. Left ovary measures 2.0 x 1.5 cm. UTERUS/CERVIX: Normal. No mass. Endometrial stripe is normal in thickness and appearance. BONES/JOINTS: Normal. SOFT TISSUES: Normal. No pelvic wall hernia. No evidence of perianal fistula. No rectal wall thickening. LYMPH NODES: Normal. No enlarged lymph nodes. MRI/Pelvis W/WO Contrast IMPRESSION: 1. Thick-walled distal ilium consistent with patient''s history of Crohn''s disease. 2. No evidence of perianal fistula. Electronically Signed: Chapo Dumont MD at 10:32 EST ,
--- OUTSIDE RECORDS SUMMARY | 2023-06-15 08:33 | XMS RPT_ITS | CCD ---
Author Name Unknown Address [id number] [place] [address] Organization [facility] Care Team Providers Care Boning Room Worker Name Role Phone Vamsi Cain R Unavailable Unavailable Galen Hill Unavailable Unavailable ThomVamsi kohli R Unavailable Unavailable Galen Hill O Unavailable Unavailable ThomVamsi kohli R Unavailable Unavailable Galen Hill O Unavailable Unavailable Galen Hill O Unavailable Unavailable Galen Hill O Unavailable Unavailable Rishabh, Debra Unavailable Unavailable Galen Hill O Unavailable Unavailable Galen Hill O Unavailable Unavailable Galen Hill O Unavailable Unavailable Galen Hill O Unavailable Unavailable Galen Hill O Unavailable Unavailable Galen Hill O Unavailable Unavailable Vamsi Cain R Unavailable Unavailable Galen Hill O Unavailable Unavailable José Manuel Aguirre Unavailable Unavailable Galen Hill O Unavailable Unavailable José Manuel Aguirre Unavailable Unavailable Galen Hill O Unavailable Unavailable Loretto, Jose W Unavailable Unavailable Loretto, Jose W Unavailable Unavailable Rishabh, Debra Unavailable Unavailable Galen Hill O Unavailable Unavailable Rishabh, Debra Unavailable Unavailable Rishabh, Debra Unavailable Unavailable Galen Hill O Unavailable Unavailable Rishabh, Debra Unavailable Unavailable Galen Hill O Unavailable Unavailable Galen Hill O Unavailable Unavailable Galen Hill O Unavailable Unavailable Galen Hill O Unavailable Unavailable Galen Hill O Unavailable Unavailable Galen Hill O Unavailable Unavailable Thomseun, Vamsi R Unavailable Unavailable Thomseun, Vamsi R Unavailable Unavailable Yariel, Galen O Unavailable Unavailable Yariel, Galen O Unavailable Unavailable Galen Hill O Unavailable Unavailable Galen Hill O Unavailable Unavailable Yariel, Galen O Unavailable Unavailable Galen Hill O Unavailable Unavailable Galen Hill O Unavailable Unavailable Galen Hill O Unavailable Unavailable Galen Hill O Unavailable Unavailable Hill, Galen O Unavailable Unavailable Galen Hill Unavailable Unavailable Galen Hill Unavailable Unavailable Galen Hill Unavailable Unavailable Galen Hill Unavailable Unavailable Unavailable Galen Hill Primary Care Provider Galen Chopra MD Primary Care Provider TESTRAKE, JOVAN Referring Unavailable GALEN HILL Primary Care Unavailable GALEN HILL Primary Care Unavailable TESTRAKE, JOVAN Attending Unavailable GALEN HILL Primary Care Unavailable CHAZ VILLELA Referring Unavailable GALEN HILL Primary Care Unavailable GALEN HILL Primary Care Unavailable TESTRAKE, JOVAN Attending Unavailable TESTRAVIBHA, JOVAN Referring Unavailable GALEN HILL Primary Care Unavailable JAIME JEFF Attending Unavailable TESTRAKE, JOVAN Referring Unavailable GALEN HILL Primary Care Unavailable TESTRAVIBHA, JOVAN Referring Unavailable MD MARTHA RUTLEDGE Attending MD MARTHA Montenegro Referring Unava ilcamron Hill, Dr. Galen Martin Primary Care Unavail able Yariel, Dr. Galen Martin Primary Care Unavail able Yariel, Dr. Galen Martin Attending Unavail able Yariel, Dr. Galen Martin Referring Unavail able MD MARTHA RUTLEDGE Attending Latriceva ilcamron Hill, Dr. Galen Martin Primary Care Unavail able Martha Rutledge Attending Unavailable Martha Rutledge Referring Unavailable Yariel, Dr. Galen Martin Primary Care Unavail Galen Shaw MD Unavailable Steph Rueda LPN Unavailable Galen Delong MD Primary Care Provider GALEN HILL Primary Care Unavailable GALEN HILL Attending GALEN Delong Primary Care Unavailable GALEN HILL Attending Unavailable GALEN HILL Primary Care Unavailable TEX TOURE Attending Unavailable GALEN HILL Referring Unavailable GALEN HILL Primary Care Unavailable Allergies Allergy Classification Reported Allergen(s) Allergy Type Date of Onset Reaction(s) Facility (11 sources) Lavender Extract; Translations: [LAVENDER EXTRACT] Propensity to adverse reactions 9 Itching [facility] (5 sources) Adhesive Tape TAPE; Translations: [Adhesive Tape TAPE] Allergy to drug (finding) [facility] Work Phone: (4 sources) Adhesive Tape-Silicones; Translations: [ADHESIVE TAPE-SILICONES] Drug Allergy 3 [facility] Medications Current Medications Medication Drug Class(es) Dates Sig (Normalized) Sig (Original) cholecalciferol 0.125 mg oral tablet (8 sources) Vitamin D take 1 tablet by mouth once daily cholecalciferol (Vitamin D-3) 5,000 Units tablet Take 1 tablet (5,000 Units) by mouth once daily. 0 Active Completed/Discontinued Medications Medication Drug Class(es) Dates Sig (Normalized) Sig (Original) Multi-Vitamins TABS (5 sources) Multi-Vitamins TABS Quantity: 0 Refills: 0 Ordered: 18-Apr-2022 DO Active 1 ml ustekinumab 90 mg/ml prefilled syringe (20 sources) Interleukin-12 Antagonist, Interleukin-23 Antagonist Start: 07-20-2018 STELARA 90 mg/mL injection Once every 8 weeks 0 07/20/2018 Active Problems Active Problems Problem Classification Problem Date Documented Date Episodic/Chronic Anal and rectal conditions (3 sources) Anorectal fistula; Translations: [Anorectal fistula] Onset: 04-17-2023 04-17-2023 Episodic Anxiety disorders (20 sources) Panic attack; Translations: [Panic disorder without agoraphobia] Onset: 02-10-2023 10-08-2018 Chronic Bacterial infection; unspecified site (19 sources) Chlamydial infection; Translations: [Unspecified chlamydial infection] Episodic Contraceptive and procreative management (20 sources) Patient encounter status; Translations: [Unspecified contraceptive management] Episodic Essential hypertension (20 sources) Hypertensive disorder; Translations: [Unspecified essential hypertension] Onset: 02-10-2023 10-08-2018 Chronic Immunizations and screening for infectious disease (3 sources) Needs influenza immunization; Translations: [Encounter for immunization] Onset: 04-17-2023 04-17-2023 Episodic Nutritional deficiencies (14 sources) Vitamin D deficiency; Translations: [Unspecified vitamin D deficiency] Chronic Other connective tissue disease (1 source) Tendinitis of shoulder region; Translations: [Disorders of bursae and tendons in shoulder region, unspecified] Episodic Other nutritional; endocrine; and metabolic disorders (1 source) Obesity; Translations: [Obesity, unspecified] Chronic Other nutritional; endocrine; and metabolic disorders (14 sources) Body mass index 30+ - obesity; Translations: [Body Mass Index 38.0-38.9, adult] Chronic Other nutritional; endocrine; and metabolic disorders (13 sources) Severe obesity; Translations: [Morbid obesity] Chronic Other nutritional; endocrine; and metabolic disorders (10 sources) Body mass index 40+ - severely obese; Translations: [Body Mass Index 40.0-44.9, adult] Chronic Other screening for suspected conditions (not mental disorders or infectious disease) (20 sources) Cancer cervix screening status; Translations: [Screening for malignant neoplasms of cervix] Onset: 09-26-2022 Episodic Regional enteritis and ulcerative colitis (20 sources) Crohn's disease; Translations: [Regional enteritis of unspecified site] Onset: 06-05-2014 10-08-2018 Chronic Residual codes; unclassified (19 sources) Past history of procedure; Translations: [Other specified personal history presenting hazards to health] Episodic Past or Other Problems Problem Classification Problem Date Documented Da te Episodic/Chronic Cancer of cervix (19 sources) H/O: neoplasm; Translations: [Personal history of other specified diseases] Resolved: 04-20-2020 Episodic Fracture of lower limb (8 sources) Closed fracture of distal fibula ; Translations: [Other fracture of upper and lower end of left fibula, initial encounter for closed fracture] Onset: 10-15-2021 Episodic Other non-traumatic joint disorders (1 source) Pain in left ankle and joints of left foot; Translations: [Acute left ankle pain] Onset: 09-17-2021 Episodic Other nutritional; endocrine; and metabolic disorders (5 sources) History of nutritional deficiency; Translations: [Personal history of nutritional deficiency] Resolved: 04-18-2022 Episodic Screening and history of mental health and substance abuse codes (18 sources) H/O: anxiety state; Translations: [Personal history of other mental disorders] Resolved: 04-19-2021 Episodic Results Test Name Value Interpretation Reference Range Facil ity Vital Signs Date Time Vital Sign Value Performing Clinician Facility 04-17-2023 08:04-0500 Body height 162.6 cm Galen Hill MD Work Phone: [facility] 04-17-2023 08:04-0500 Body mass index (BMI) [Ratio] 41.52 kg/m2 Galen Hill MD Work Phone: [facility] 04-17-2023 08:04-0500 Body weight 109.72 kg Galen Hill MD Work Phone: [facility] 04-17-2023 08:04-0500 Diastolic blood pressure 78 mm[Hg] Galen Hill MD Work Phone: [facility] 04-17-2023 08:04-0500 Heart rate 98 /min Galen Hill MD Work Phone: [facility] 04-17-2023 08:04-0500 SaO2% (BldA) [Mass fraction] 98 % Galen Hill MD Work Phone: [facility] 04-17-2023 08:04-0500 Systolic blood pressure 128 mm[Hg] Galen Hill MD Work Phone: [facility] 02-10-2023 09:42-0400 Body height 162.6 cm Galen Hill MD Work Phone: [facility] 02-10-2023 09:42-0400 Body mass index (BMI) [Ratio] 41.54 kg/m2 Galen Hill MD Work Phone: [facility] 02-10-2023 09:42-0400 Body weight 109.77 kg Galen Hill MD Work Phone: [facility] 02-10-2023 09:42-0400 Diastolic blood pressure 74 mm[Hg] Galen Hill MD Work Phone: [facility] 02-10-2023 09:42-0400 Heart rate 70 /min Galen Hill MD Work Phone: [facility] 02-10-2023 09:42-0400 SaO2% (BldA) [Mass fraction] 99 % Galen Hill MD Work Phone: [facility] 02-10-2023 09:42-0400 Systolic blood pressure 130 mm[Hg] Galen Hill MD Work Phone: [facility] 09-26-2022 10:10-0400 Body height 162.56 cm Galen Hill Work Phone: [place] [address] [address] Work Phone: 09-26-2022 10:10-0400 Body mass index (BMI) [Ratio] 40.06 kg/m2 Galen Hill Work Phone: [place] [address] [address] Work Phone: 09-26-2022 10:10-0400 Body surface area Derived from formula 2.09 m2 Galen Hill Work Phone: [place] [address] [address] Work Phone: 09-26-2022 10:10-0400 Body weight 105.86 kg Galen Hill Work Phone: [address] Work Phone: 09-26-2022 10:10-0400 Diastolic blood pressure 82 mm[Hg] Galen Hill Work Phone: [place] [address] [address] Work Phone: 09-26-2022 10:10-0400 Systolic blood pressure 122 mm[Hg] Gaeln Hill Work Phone: [address] Work Phone: 04-18-2022 08:20-0500 Body height 162.56 cm Galen Hill [facility] Work Phone: 04-18-2022 08:20-0500 Body mass index (BMI) [Ratio] 40.51 kg/m2 Galen Hill Work [facility] Work Phone: 04-18-2022 08:20-0500 Body surface area Derived from formula 2.1 m2 Galen Hill Work Phone: [facility] Work Phone: 04-18-2022 08:20-0500 Body weight 107.05 kg Galen Hill Work Phone: [facility] Work Phone: 04-18-2022 08:20-0500 Diastolic blood pressure 78 mm[Hg] Galen Hill Work Phone: [facility] Work Phone: 04-18-2022 08:20-0500 Heart rate 64 /min Galen Hill Work Phone: [facility] Work Phone: 04-18-2022 08:20-0500 Systolic blood pressure 120 mm[Hg] Galen Hill Work Phone: [facility] Work Phone: 11-29-2021 11:00-0400 Diastolic blood pressure 76 mm[Hg] Jaime Lemon PT [facility] 11-29-2021 11:00-0400 Systolic blood pressure 120 mm[Hg] Jaime Lemon [facility] 09-24-2021 09:36-0400 Body height 162.56 cm Galen Hill Work Phone: [place] [address] [address] Work Phone: 09-24-2021 09:36-0400 Body mass index (BMI) [Ratio] 40.53 kg/m2 Galen Hill Work Phone: [place] [address] [address] Work Phone: 09-24-2021 09:36-0400 Body surface area Derived from formula 2.1 m2 Galen Hill Work Phone: [place] [address] [address] Work Phone: 09-24-2021 09:36-0400 Body weight 107.1 kg Galen Hill Work Phone: [place] [address] [address] Work Phone: 09-24-2021 09:36-0400 Diastolic blood pressure 80 mm[Hg] Galen Hill Work Phone: [address] Work Phone: 09-24-2021 09:36-0400 Systolic blood pressure 118 mm[Hg] Galen Hlil Work Phone: [address] Work Phone: 09-17-2021 11:43-0400 Body temperature 99 [degF] Chaz Athy PA-C Work Phone: [facility] 09-17-2021 11:43-0400 Body weight 107.96 kg Chaz Athy PA-C Work Phone: [facility] 09-17-2021 11:43-0400 Diastolic blood pressure 98 mm[Hg] Chaz Athy PA-C Work Phone: [facility] 09-17-2021 11:43-0400 Heart rate 102 /min Chaz Athy PA-C Work Phone: [facility] 09-17-2021 11:43-0400 Respiratory rate 18 /min Chaz Athy PA-C Work Phone: [facility] 09-17-2021 11:43-0400 SaO2% (BldA) [Mass fraction] 96 % Chaz Athy PA-C Work Phone: [facility] 09-17-2021 11:43-0400 Systolic blood pressure 136 mm[Hg] Chaz Athy PA-C Work Phone: [facility] 04-19-2021 08:22-0500 Body height 162.56 cm Galen Hill Work Phone: [facility] Work Phone: 04-19-2021 08:22-0500 Body mass index (BMI) [Ratio] 39.74 kg/m2 Galen Hill Work Phone: [facility] Work Phone: 04-19-2021 08:22-0500 Body surface area Derived from formula 2.08 m2 Galen Hill Work Phone: [facility] Work Phone: 04-19-2021 08:22-0500 Body temperature 96.4 [degF] Galen Hill Work Phone: [facility] Work Phone: 04-19-2021 08:22-0500 Body weight 105.01 kg Galen Hill Work Phone: [facility] Work Phone: 04-19-2021 08:22-0500 Diastolic blood pressure 78 mm[Hg] Galen Hill Work Phone: [facility] Work Phone: 04-19-2021 08:22-0500 Heart rate 64 /min Galen Hill Work Phone: [facility] Work Phone: 04-19-2021 08:22-0500 Systolic blood pressure 124 mm[Hg] Galen Hill Work Phone: [facility] Work Phone: Encounters Encounter Date Encounter Type Care Provider Facility Start: 05-15-2023 End: 05-15-2023 ambulatory [facility] Ambulatory Start: 04-17-2023 End: 04-18-2023 ambulatory GALEN O [facility] Start: 04-17-2023 End: 04-17-2023 Office outpatient visit 25 minutes Galen Hill MD Work Phone: [facility] Procedures Date Procedure Procedure Detail Performing Clinician Start: 05-15-2023 AMB REFERRAL TO GENE RAL SURGERY GALEN HILL Start: 04-17-2023 FLU VACCINE (IIV4) G REATER THAN OR EQUAL TO 3YO PRESERVATIVE FREE GALEN HILL Start: 04-17-2023 Cyanocobalamin vitamin b-12 GALEN HILL Start: 04-17-2023 Lipid panel GALEN Wilosn Start: 04-17-2023 TSH WITH REFLEX TO F REE T4 IF ABNORMAL GALEN HILL Start: 04-17-2023 VITAMIN D 25-HYDROXY,TOTAL GALEN HILL Start: 10-07-2022 Mammography Galen wilson MD Work Phone: Start: 09-26-2022 Microscopic observat ion [Identifier] in Cervix by Cyto stain Galen Hill MD Work Phone: Start: 04-15-2022 Lipid 1996 panel - S malick or Plasma Galen Hill MD Work Phone: Start: 04-15-2022 Thyrotropin [Units/v olume] in Serum or Plasma Galen Hill MD Work Phone: Start: 10-15-2021 Radex ankle complete minimum 3 views Jovan Granda Work Phone: Start: 10-08-2018 Adult depression scr eening assessment Chaz Villela PA-C Work Phone: Colonoscopy Galen Hill Work Phone: Colposcopy Galen Hill Work Phone: Plan of Treatment Date Care Activity Detail Author Start: 2030 Zoster Vaccines (1 of 2) Zoster Vaccines (1 of 2) [facility] Start: 04-15-2027 Lipid panel Lipid Panel [facility] Start: 09-26-2025 Screening for malignant neoplasm of cervix [facility] Start: 10-16-2023 End: 10-16-2023 Patient encounter procedure 10/16/2023 8:00 AM EDT Office Visit [facility] [address] [place] [id number] Galen Hill MD [address] [facility] Medical Office [place] [id number] [facility] Start: 10-08-2023 Screening for malignant neoplasm of breast Mammogram [facility] Start: 09-29-2023 Patient encounter procedure ANNUAL, Provider: Martha Rutledge, Status: Pen, Time: 9:[address] Work Phone: Start: 09-29-2023 End: 09-29-2023 Patient encounter procedure 09/29/2023 9:30 AM EDT Office Visit [facility] Medical Office [address] [place] [id number] Martha Rutledge MD [address] [facility], [facility] [address] [place] [address] [facility] Medical Office [facility] Start: 05-15-2023 End: 05-15-2023 Patient encounter procedure 05/15/2023 2:30 PM EST Office Visit [address] [place] [id number] Tex Toure MD [address] [facility], [facility] [address] [place] [address] [facility] Start: 04-17-2023 EPV, Provider: Galen Hill, Status: Pen, Time: 8:00 AM EPV, Provider: Galen Hill, Status: Pen, Time: 8:00 AM [facility] Work Phone: Start: 04-17-2023 End: 04-17-2023 Patient encounter procedure 04/17/2023 8:00 AM EST Office Visit [address] [phone] Galen Hill MD [address] [place] [id number] [facility] Start: 04-15-2023 Cyanocobalamin vitamin b-12 Vitamin B-12 [facility] Start: 04-15-2023 Thyroid stimulating hormone measurement TSH Level [facility] Start: 04-15-2023 Vitamin D25-OH Vitamin D25-OH [facility] Start: 02-10-2023 End: 02-11-2024 25-hydroxyvitamin D3 [Mass/volume] in Serum or Plasma Vitamin D 25-Hydroxy,Total (for eval of Vitamin D levels) Lab Routine Primary hypertension Other specified hypothyroidism Expected: 02/10/2023 (Approximate), Expires: 02/11/2024 [facility] Work Phone: Immunizations Immunization Date Immunization Notes Care Provider Fa cili 04-17-2023 influenza, injectabl e, quadrivalent, preservative free Galen Hill MD Work Phone: [facility] Work Phone: 04-18-2022 influenza, injectabl e, quadrivalent, preservative free; Translations: [Flulaval Quadrivalent 0.5 ML Intramuscular Suspension Prefilled Syringe] Galen Hill Work Phone: [facility] Work Phone: Payers Date Payer Category Payer Private Health [facility] [id number] 2021-Present [phone] [address] [address] [place] [address] O [id number] 2021 Unknown [id number] 2017 Private Health Insurance 2016 Unknown 1980 Unknown [id number] 2.16.840.1.669452.3.579. 2.717 1980 Unknown [id number] 2.16.840.1.446350.3.579. 2. 1980 Unknown [id number] 2.16.840.1.528569.3.579. 2. 1980 Unknown [id number] 2.16.840.1.490295.3.579. 2. 1980 Unknown [id number] 2.16.840.1.407949.3.579. 2. 1980 Unknown [id number] 2.16.840.1.026171.3.579. 2. 1980 Unknown [id number] 2.16.840.1.217945.3.579. 2. 1980 Unknown [id number] 2.16.840.1.656245.3.579. 2 1980 Unknown [id number] 2.16.840.1.688828.3.579. 2 1980 Unknown [id number] 2.16.840.1.571089.3.579. 2 1980 Unknown [id number] 2.16.840.1.635869.3.579. 2. 1980 Unknown [id number] 2.16.840.1.829379.3.579. 2 1980 Unknown [id number] 2.16.840.1.339848.3.579. 2 1980 Unknown [id number] 2.16.840.1.387991.3.579. 2. 1980 Unknown [id number] 2.16.840.1.483508.3.579. 2. 1980 Unknown [id number] 2.16.840.1.088141.3.579. 2 1980 Unknown [id number] 2.16.840.1.403423.3.579. 2. 1980 Unknown [id number] 2.16.840.1.384621.3.579. 2. 1980 Unknown [id number] 2.16.840.1.393468.3.579. 2.356 1980 Unknown [id number] 2.16.840.1.135049.3.579. 2.1069 1980 Unknown [id number] 2.16.840.1.392030.3.579. 2.1245 1980 Unknown [id number] 2.16.840.1.029425.3.579. 2.1244 1980 Unknown [id number] 2.16.840.1.267568.3.579. 2.1244 1980 Unknown [id number] 2.16.840.1.147882.3.579. 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 non-dr rectifying operator of alcohol (finding) [facility] Start: 10-08-2018 History SDOH Alcohol Frequency 1 [facility] Start: 1980 Sex Assigned At Not on file [facility] Start: 09-07-2021 End: 04-17-2023 Exposure to SARS-CoV-2 (event) Not sure [facility] Start: 02-10-2023 Tobacco use and exposure Smokeless tobacco non-user [facility] Work Phone: Start: 02-10-2023 End: 04-17-2023 Alcohol intake Ex-drinker (finding) [facility] Work Phone: Start: 02-10-2023 Gender identity Not on file [facility] Work Phone: Clinical Notes 09-03-2021 to 04-17-2023 Divina Girard MA - 04/17/2023 8:00 AM Yohannes Hill MD - 04/17/2023 8:00 AM ESTPatient InstructionsAli Hallabrin, MA - 02/10/2023 9:40 AM TIATGalen Hill MD - 02/10/2023 9:40 AM EDT Note Date & Type Note Facility 04-17-2023 History of Presen t illness Narrative Subjective Patient ID: Fernanda Denson is a 42 y.o. female who presents for 6 month follow up. Labs completed but not resulted. HPI Review of Systems Objective There were no vitals taken for this visit. Physical Exam Assessment/Plan Patient presents for periodic surveillance of chronic medical problems. Subjective Fernanda Denson is a 42 y.o. female who presents for No chief complaint on file.. HPI HTN, stable Hypothyroid, had labs this morning, will review when available Anxiety, states doing well on current regimen Crohns, sees Dr Rousseau in [place], had hospitalization this summer. Due for flu vaccine. States for quite some time she thinks she has a hemorrhoid. Has pain with defecation and at times bright red blood. Using otc products, tucks, stool softeners, etc., Review of Systems All other systems reviewed and are negative. . Objective Visit Vitals BP 128/78 (BP Location: Left arm, Patient Position: Sitting, BP Cuff Size: Adult) Pulse 98 Physical Exam Vitals and nursing note reviewed. Constitutional: General: She is not in acute distress. Appearance: Normal appearance. She is not toxic-appearing. HENT: Head: Normocephalic and atraumatic. Cardiovascular: Rate and Rhythm: Normal rate and regular rhythm. Heart sounds: No murmur heard. Pulmonary: Effort: Pulmonary effort is normal. Breath sounds: Normal breath sounds. Abdominal: Palpations: Abdomen is soft. 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 No rigidity. Comments: Normal gait Skin: General: Skin is warm and dry. Neurological: General: No focal deficit present. Mental Status: She is alert and oriented to person, place, and time. Psychiatric: Mood and Affect: Mood normal. Behavior: Behavior normal. Assessment/Plan Problem List Items Addressed This Visit Crohn's disease (CMS/HCC) Other Visit Diagnoses Need for influenza vaccination - Primary Relevant Orders Flu vaccine (IIV4) age 6 months and greater, preservative free (Completed) Anorectal fistula Relevant Orders Referral to General Surgery Galen Hill MD documented in this encounter [facility] Work Phone: 04-17-2023 Instructions Galen Hill MD - 04/17/2023 8:00 AM EST Opening clinically looks like a fistula, recommend gen surg eval. Lab review when available Flu vaccine. Followup six months. Call concerns. documented in this encounter [facility] Work Phone: 02-10-2023 History of Presen t illness Narrative Pt is here today for a hospital follow up [facility] 02/07/23 Jairon Denson is a 42 y.o. female who presents for No chief complaint on file.. HPI Denies presents for hospital followup. Was admitted to [facility] for Crohns flare and small bowel obstruction . On steriods and both antibiotics currently. Feels back to normal, eating fine, no vomiting, no bowel issues now. Has follow up appt with Dr Rousseau in [place], GI. Due for routine check up in March. Review of Systems All other systems reviewed and are negative. . Objective Visit Vitals BP 130/74 Pulse 70 Physical Exam HENT: Head: Normocephalic. Cardiovascular: Rate and Rhythm: Normal rate and regular rhythm. Pulmonary: Effort: Pulmonary effort is normal. Breath sounds: Normal breath sounds. Neurological: Mental Status: She is alert. Assessment/Plan Problem List Items Addressed This Visit Crohn's disease (CMS/HCC) Hypertension - Primary Relevant Orders TSH with reflex to Free T4 if abnormal Vitamin B12 Vitamin D 25-Hydroxy,Total (for eval of Vitamin D levels) Lipid Panel Hypothyroid Relevant Orders TSH with reflex to Free T4 if abnormal Vitamin B12 Vitamin D 25-Hydroxy,Total (for eval of Vitamin D levels) Lipid Panel Galen Hill MD documented in this encounter [facility] Work Phone: 02-18-2022 Note HNO ID: [id number] Author: Jaime Jeff PT Service: ? Author Type: Physical Therapist Type: Progress Notes Filed: 02/18/2022 8:25 AM Note Text: 02/18/2022 [facility] REHABILITATION AND SPORTS THERAPY PHYSICAL THERAPY DISCONTINUANCE OF CARE Plan of Care Period: Start of Care Date: 11/29/21 Last Visit Date: 11/29/2021 Therapy Program: Patient did not return for follow up care as planned. Please refer to last visit note for interventions provided for this episode of care. Assessment: Unable to formally assess goal achievement. Reason for Discontinuation of Care: Patient has not returned to therapy or scheduled additional follow-up appointments. Jaime Jeff PT [facility] 11-29-2021 Note HNO ID: [id number] Author: Jaime Jeff PT Service: ? Author Type: Physical Therapist Type: Progress Notes Filed: 11/29/2021 2:14 PM Note Text: Episode Visit Count: 1 Therapist That Will Oversee The Plan Of Care: Jaime Jeff Start of Care Date: 11/29/21 Onset Date: 09/02/21 Plan of Care Certification Date: 01/29/22 Patient Identified by Name and Date of : Yes REHABILITATION AND SPORTS THERAPY PHYSICAL THERAPY EVALUATION PLAN OF CARE: Assessment: Fernanda Denson presents with diagnosis of Closed fracture of distal end of L fibula that interferes with stair negotiation . She presents with impairments in edema management, gait, overall function, range of motion and strength. Prognosis for therapy is Excellent due to: current objective clinical presentation;good overall health status;good support system/ coping skills . She will benefit from skilled therapy services to meet the goals established for this plan of care as noted below. Goals for Episode of Care: created on 11/29/21 through 01/29/22 [place] in home exercise program. Patient will increase active ROM of 8-12deg dorsiflexion, symmetrical all other AROM to allow pt to to improve performance of ADLs and to improve gait mechanics / gait pattern . Patient will demonstrate increase in L LE strength to 4+ to 5/5 during manual muscle testing in order to improve function for home management tasks, leisure / recreation skills and prior functional tasks. Perform all daily activities without pain. Normal gait. Reciprocal stair negotiation. Patient Goals: To be able to get back out and go walking again. Planned Interventions, Frequency, and Duration: Current Frequency: 1x every other week Duration: 8 weeks Total Number of Visits Planned: 4 Planned Treatment Interventions: Therapeutic exercise (15059);Neuromuscular re-education (41974);Manual therapy (93231);Gait Training (45956);Patient/Family/Caregive r Education PLAN FOR NEXT VISIT: Assess resonse to initial exercises and HEP. Progress strengthening ex, AROM and balance/proprioception. Patient demonstrates good understanding of plan of care and treatment. The above goals and plan of care were discussed and agreed upon by patient/family. SUBJECTIVE: Fernanda Denson is a 41 year old female seen today for Pt reports 09/02/21, stepping down from a curb and twisted her ankle and fell. Currently, pt notes some difficulty with stairs, but denies any problem with ambulation, including longer community distances. She states no pain at all. Still notes some swelling, denies paraesthesias, weakness or lack of ROM. Pt notes she sits a lot through the day for work. Patient Goals: To be able to get back out and go walking again. Functional Limitations: stair negotiation Prior Level of Function: Independent without limitations Relevant History Employment: (yes, not specified) Recreation / Current Exercise: Previously would walk 2-3 days a week in the neighborhood or [place]. Intake Information: Prescription present Previous Treatment: Immobilizer/brace? (DonJoy brace and an ALESSIO cross ankle velcro brace (which she is wearing today)) Pain: Pain Pain Level: 0 Pain Location: Ankle - Left Description: Sore Frequency: Intermittent Post Treatment Pain Post Treatment Pain Level: No Change Post Treatment Pain Location: Ankle - Left (lateral) Post Treatment Pain Description: (mild soreness) PROMIS Scales Higher is Better 11/28/2021 Phys Func - Score 53 (within normal limits) Phys Func - Percentile 62 % Social Roles - Score 56 (within normal limits) Social Role - Percentile 73 % GH Physical - Score 39.8 (Fair) GH Physical - Percentile 15 % GH Mental - Score 38.8 (Fair) GH Mental - Percentile 13 % Self-Eff Symptom - Score 69 (High) Self-Eff Symptom - Percentile 97 % T-scores: mean of general population = 50. 5 points is clinically meaningfully difference Percentiles provide an indication of how the patient's score ranks in relation to the general population. Higher percentile rankings indicate better function/quality of life. 50th percentile is the average of the general population and indicates half of respondents had a worse score. Lower is Better 11/28/2021 Fatigue - Score 57 (mild) Fatigue - Percentile 24 % T-scores: mean of general population = 50. 5 points is clinically meaningfully difference Percentiles provide an indication of how the patient's score ranks in relation to the general population. Higher percentile rankings indicate better function/quality of life. 50th percentile is the average of the general population and indicates half of respondents had a worse score. OBJECTIVE MEASURES WITH LEVEL OF FUNCTION: Ankle Observations R Ankle Presents with: Comments Comments: MTPs 22.5cm, midfoot 22.5cm, heel 31cm, B malleoli 27cm, 1 above medial malleolus 25cm L Ankle Presents with: Swelling L Swe (more content not included)... [facility] 11-29-2021 History of Presen t illness Narrative Episode Visit Count: 1 Therapist That Will Oversee The Plan Of Care: Jaime Jeff Start of Care Date: 11/29/21 Onset Date: 09/02/21 Plan of Care Certification Date: 01/29/22 Patient Identified by Name and Date of : Yes REHABILITATION AND SPORTS THERAPY PHYSICAL THERAPY EVALUATION PLAN OF CARE: Assessment: Fernanda Denson presents with diagnosis of Closed fracture of distal end of L fibula that interferes with stair negotiation . She presents with impairments in edema management, gait, overall function, range of motion and strength. Prognosis for therapy is Excellent due to: current objective clinical presentation;good overall health status;good support system/ coping skills . She will benefit from skilled therapy services to meet the goals established for this plan of care as noted below. Goals for Episode of Care: created on 11/29/21 through 01/29/22 [place] in home exercise program. Patient will increase active ROM of 8-12deg dorsiflexion, symmetrical all other AROM to allow pt to to improve performance of ADLs and to improve gait mechanics / gait pattern . Patient will demonstrate increase in L LE strength to 4+ to 5/5 during manual muscle testing in order to improve function for home management tasks, leisure / recreation skills and prior functional tasks. Perform all daily activities without pain. Normal gait. Reciprocal stair negotiation. Patient Goals: To be able to get back out and go walking again. Planned Interventions, Frequency, and Duration: Current Frequency: 1x every other week Duration: 8 weeks Total Number of Visits Planned: 4 Planned Treatment Interventions: Therapeutic exercise (78710);Neuromuscular re-education (60649);Manual therapy (35278);Gait Training (16595);Patient/Family/Caregive r Education PLAN FOR NEXT VISIT: Assess resonse to initial exercises and HEP. Progress strengthening ex, AROM and balance/proprioception. Patient demonstrates good understanding of plan of care and treatment. The above goals and plan of care were discussed and agreed upon by patient/family. SUBJECTIVE: Fernanda Denson is a 41 year old female seen today for Pt reports 09/02/21, stepping down from a curb and twisted her ankle and fell. Currently, pt notes some difficulty with stairs, but denies any problem with ambulation, including longer community distances. She states no pain at all. Still notes some swelling, denies paraesthesias, weakness or lack of ROM. Pt notes she sits a lot through the day for work. Patient Goals: To be able to get back out and go walking again. Functional Limitations: stair negotiation Prior Level of Function: Independent without limitations Relevant History Employment: (yes, not specified) Recreation / Current Exercise: Previously would walk 2-3 days a week in the neighborhood or [facility]. Intake Information: Prescription present Previous Treatment: Immobilizer/brace (DonJoy brace and an ALESSIO cross ankle velcro brace (which she is wearing today)) Pain: Pain Pain Level: 0 Pain Location: Ankle - Left Description: Sore Frequency: Intermittent Post Treatment Pain Post Treatment Pain Level: No Change Post Treatment Pain Location: Ankle - Left (lateral) Post Treatment Pain Description: (mild soreness) PROMIS Scales Higher is Better 11/28/2021 Phys Func - Score 53 (within normal limits) Phys Func - Percentile 62 % Social Roles - Score 56 (within normal limits) Social Role - Percentile 73 % GH Physical - Score 39.8 (Fair) GH Physical - Percentile 15 % GH Mental - Score 38.8 (Fair) GH Mental - Percentile 13 % Self-Eff Symptom - Score 69 (High) Self-Eff Symptom - Percentile 97 % T-scores: mean of general population = 50. 5 points is clinically meaningfully difference Percentiles provide an indication of how the patient's score ranks in relation to the general population. Higher percentile rankings indicate better function/quality of life. 50th percentile is the average of the general population and indicates half of respondents had a worse score. Lower is Better 11/28/2021 Fatigue - Score 57 (mild) Fatigue - Percentile 24 % T-scores: mean of general population = 50. 5 points is clinically meaningfully difference Percentiles provide an indication of how the patient's score ranks in relation to the general population. Higher percentile rankings indicate better function/quality of life. 50th percentile is the average of the general population and indicates half of respondents had a worse score. OBJECTIVE MEASURES WITH LEVEL OF FUNCTION: Ankle Observations R Ankle Presents with: Comments Comments: MTPs 22.5cm, midfoot 22.5cm, heel 31cm, B malleoli 27cm, 1 above medial malleolus 25cm L Ankle Presents with: Swelling L Swelling: MTPs 23.5cm, midfoot 22.5cm, heel 32cm, B malleoli 28cm, 1 above medial malleolus 26cm LE AROM R Ankle Dorsiflexion: -5 Degrees R Ankle Plantar Flexion: 55 Degrees R Ankle Inversion: 55 R Ankle Eversion: 22 L Ankle Dorsiflexion: -8 Degrees L Ankle Plantar Flexion: 43 Degrees L Ankle Inversion: 50 (stretch/pulling) L Ankle Eversion: 15 LE Strength R Ankle Dorsiflexion (L4): 5/5 R Ankle Plantar Flexion: 5/5 R Ankle Inversion: 5/5 R Ankle Eversion: 5/5 L Ankle Dorsiflexion (L4): 4+/5 L Ankle Plantar Flexion: 4+/5 L Ankle Inversion: 4/5 L Ankle Eversion: 4-/5 (achey) Gait Gait: Independent Gait Device: None Gait Deviations: Left Lower Extremity Gait Deviations Left Lower Extremity: Push off during terminal stance decreased Education: Education Learning Preferences: Demonstration;Explanation Barriers: None Learning/educational needs: Safety;Home exercise program;Plan of Care;Changes in Plan of Care Education Provided: Yes, see treatment interventions for education provided Education Provided To: Patient;Family Education Mode/Type: Demonstration;Explanation/Discu ssion;Literature/Printed Materials;Performance Response to Education/Teach Back: States/Identifies;Return Demonstration TREATMENT: PT Treatment Interventions: Therapeutic Exercise Evaluation Therapeutic Exercise: 1: *seated towel calf stretches 3 x 30 sec 2: *blue band ankle DF, PF 2 x 15 3: *green band ankle inversion 2 x 15 4: *wall calf stretch x 30 secends Skilled Intervention: Patient was educated in proper exercise technique and purpose for exercises. Skilled judgment was provided in selection of appropriate interventions. Provided written instruction for home exercise program to facilitate proper performance and compliance. Correct performance of therapeutic exercises was facilitated with verbal and visual cuing. Patient education as noted. Billing * Evaluation Low Complexity: 1 Unit Therapeutic Exercise Treatment Minutes: 20 Total Treatment Time Minutes (timed/untimed): 40 Jaime Jeff PT documented in this encounter [facility] 11-24-2021 Note HNO ID: [id number] Author: Jovan Granda Service: ? Author Type: Physician Type: Progress Notes Filed: 11/24/2021 8:10 AM Note Text: Time of call: 4:38 pm 7 minutes FOLLOW UP PODIATRIC OFFICE VISIT Chief Complaint: This 41 year old Is contacted via phone for follow-up left ankle fracture. Patient is contacted via phone for follow-up left fibula avulsion fracture. Patient has no pain. She has boot but most of time, she admits to going without the boot as she works from home. She has repeat xrays to review. PAIN EVALUATION No data found in the last 1 encounters. Hemoglobin A1C Date Value Ref Range Status 10/13/2018 5.4 4.3 - 5.6 % Final Comment: [place] [employer] guidelines indicate that patients with HgbA1c in the range 5.7-6.4% are at increased risk for development of diabetes, and intervention by lifestyle modification may be beneficial. HgbA1c greater or equal to 6.5% is considered diagnostic of diabetes. PCP: Galen Hill MD PAST MEDICAL HISTORY Diagnosis Date - Anxiety - Chlamydia 2001 - Crohn's disease (HCC) 2014 Dr. Ch - HPV (human papillomavirus) 2006 - Hypertension - Hypothyroid age 10 non-toxic goiter; thyroid scan - LSIL (low grade squamous intraepithelial lesion) on Pap smear 04/27/10 colpo [place] 1 - Premature contractions or systoles unsure if PACs or PVCs - Zoster age 24 Current Outpatient Medications Medication Sig - levothyroxine (LEVOXYL) 175 mcg tablet Take on empty stomach. For thyroid. Take one tablet five days a week. - sertraline (ZOLOFT) 50 mg tablet Take 1 tablet by mouth once daily. - levothyroxine (LEVOXYL) 200 mcg tablet Take on empty stomach. For thyroid Take one pill twice a week in replace of 175 mcg. - STELARA 90 mg/mL injection Once every 8 weeks - cyanocobalamin (VITAMIN B-12) 1,000 mcg tab Take 1,000 mcg by mouth once daily. - cholecalciferol (VITAMIN D-3) 5,000 unit tab Take 5,000 Units by mouth once daily. - propranolol (INDERAL) 20 mg tablet Take 2 tablets by mouth twice daily. 2 tabs twice daily - Desogestrel-Ethinyl Estradiol (VELIVET) 0.1/.125/.15-25 mg-mcg ORAL tablet Take 1 tablet by mouth once daily. No current facility-administered medications for this visit. ALLERGIES Allergen Reactions - Lavender Extract Itching Dry itchy skin PAST SURGICAL HISTORY Procedure Laterality Date - COLONOSCOPY 2014 - COLONOSCOPY 2016 - EXTRACTION, ERUPTED TOOTH OR EXPOSED ROOT (ELEVATION AND/OR FORCEPS REMOVAL) age 24 - VAGINOSCOPY 06/22/10 [place] 1 Physical Exam: OBJECTIVE: xrays of left ankle reviewed. nonheaed fracture, left fibula ASSESSMENT: Closed fracture of distal end of left fibula, unspecified fracture morphology, initial encounter (primary encounter diagnosis) PLAN: Patient has fracture of left fibula. She has no pain. She has gone without the boot. I reviewed the xrays and discussed the nonhealed portion of the fibula. We discussed options. 1. Continue boot was discussed 2. Use of ankle brace was discussed 3. rerferral to ortho was discussed. Patient has no pain. She has elected to use brace and will make referral to therapy. F/u prn. She understands that she the fibula fracture may never fully heal. She has no pain. Jovan Granda DPM [facility] 11-24-2021 History of Presen t illness Narrative Time of call: 4:38 pm 7 minutes FOLLOW UP PODIATRIC OFFICE VISIT Chief Complaint: This 41 year old Is contacted via phone for follow-up left ankle fracture. Patient is contacted via phone for follow-up left fibula avulsion fracture. Patient has no pain. She has boot but most of time, she admits to going without the boot as she works from home. She has repeat xrays to review. PAIN EVALUATION No data found in the last 1 encounters. Hemoglobin A1C Date Value Ref Range Status 10/13/2018 5.4 4.3 - 5.6 % Final Comment: [place] [employer] guidelines indicate that patients with HgbA1c in the range 5.7-6.4% are at increased risk for development of diabetes, and intervention by lifestyle modification may be beneficial. HgbA1c greater or equal to 6.5% is considered diagnostic of diabetes. PCP: Galen Hill MD PAST MEDICAL HISTORY Diagnosis Date Anxiety Chlamydia 2001 Crohn's disease (HCC) 2014 Dr. Ch HPV (human papillomavirus) 2006 Hypertension Hypothyroid age 10 non-toxic goiter; thyroid scan LSIL (low grade squamous intraepithelial lesion) on Pap smear 04/27/10 colpo [place] 1 Premature contractions or systoles unsure if PACs or PVCs Zoster age 24 Current Outpatient Medications Medication Sig levothyroxine (LEVOXYL) 175 mcg tablet Take on empty stomach. For thyroid. Take one tablet five days a week. sertraline (ZOLOFT) 50 mg tablet Take 1 tablet by mouth once daily. levothyroxine (LEVOXYL) 200 mcg tablet Take on empty stomach. For thyroid Take one pill twice a week in replace of 175 mcg. STELARA 90 mg/mL injection Once every 8 weeks cyanocobalamin (VITAMIN B-12) 1,000 mcg tab Take 1,000 mcg by mouth once daily. cholecalciferol (VITAMIN D-3) 5,000 unit tab Take 5,000 Units by mouth once daily. propranolol (INDERAL) 20 mg tablet Take 2 tablets by mouth twice daily. 2 tabs twice daily Desogestrel-Ethinyl Estradiol (VELIVET) 0.1/.125/.15-25 mg-mcg ORAL tablet Take 1 tablet by mouth once daily. No current facility-administered medications for this visit. ALLERGIES Allergen Reactions Lavender Extract Itching Dry itchy skin PAST SURGICAL HISTORY Procedure Laterality Date COLONOSCOPY 2014 COLONOSCOPY 2016 EXTRACTION, ERUPTED TOOTH OR EXPOSED ROOT (ELEVATION AND/OR FORCEPS REMOVAL) age 24 VAGINOSCOPY 06/22/10 [place] 1 Physical Exam: OBJECTIVE: xrays of left ankle reviewed. nonheaed fracture, left fibula ASSESSMENT: Closed fracture of distal end of left fibula, unspecified fracture morphology, initial encounter (primary encounter diagnosis) PLAN: Patient has fracture of left fibula. She has no pain. She has gone without the boot. I reviewed the xrays and discussed the nonhealed portion of the fibula. We discussed options. 1. Continue boot was discussed 2. Use of ankle brace was discussed 3. rerferral to ortho was discussed. Patient has no pain. She has elected to use brace and will make referral to therapy. F/u prn. She understands that she the fibula fracture may never fully heal. She has no pain. Jovan Granda DPM documented in this encounter [facility] 11-10-2021 Note HNO ID: [id number] Author: RT Edd(R) Service: Radiology Author Type: Technologist Type: Progress Notes Filed: 11/10/2021 1:49 PM Note Text: Radiology Service Progress Note PATIENT NAME: Fernanda Denson DATE OF SERVICE: November 10, 2021 TIME: 1:39 PM PATIENT IDENTITY VERIFICATION COMPLETED USING TWO (2) IDENTIFIERS: Name and Date of confirmed by patient verbally. FALL SCREENING: Has the patient had 2 falls in the last year or 1 fall with injury or currently using an Ambulatory Assistive Device (Walker, Cane, Wheelchair, Crutches, etc.)? No PATIENT GENDER DATA: Female. status: : No status: NO. PATIENT RELEVANT IMPLANT DATA REVIEWED: Yes RADIOLOGY DEPARTMENT: General X-ray: Exam(s) Completed: Lower Extremity X-Ray(s): Ankle, Left and Wt. Bearing PERIPHERAL IV DATA: Not applicable SIGNED BY: RT Edd(R) November 10, 2021 1:39 PM [facility] 10-15-2021 Miscellaneous Notes Pt notified and verbalizes understanding. Anali Cataaln MA ----- Message from Jovan Granda sent at 10/15/2021 10:43 AM EDT ----- Please call patient to inform her that her fracture of fibula still is visible. I would continue with boot. I would repeat xrays of left fibula in 3 weeks Jovan Granda DPM documented in this encounter [facility] 10-15-2021 Note HNO ID: [id number] Author: Jovan Granda Service: ? Author Type: Physician Type: Progress Notes Filed: 10/15/2021 10:44 AM Note Text: Will continue with boot Repeat xrays in 3 weeks [facility] 10-15-2021 History of Presen t illness Narrative Will continue with boot Repeat xrays in 3 weeks documented in this encounter [facility] 10-15-2021 Note HNO ID: [id number] Author: Patricia Harper RT(R) Service: ? Author Type: Technologist Type: Progress Notes Filed: 10/15/2021 7:44 AM Note Text: Radiology Service Progress Note PATIENT NAME: Fernanda Denson DATE OF SERVICE: October 15, 2021 TIME: 7:36 AM PATIENT IDENTITY VERIFICATION COMPLETED USING TWO (2) IDENTIFIERS: Name and Date of confirmed by patient verbally. FALL SCREENING: Has the patient had 2 falls in the last year or 1 fall with injury or currently using an Ambulatory Assistive Device (Walker, Cane, Wheelchair, Crutches, etc.)? No PATIENT GENDER DATA: Female. status: : No status: NO. PATIENT RELEVANT IMPLANT DATA REVIEWED: Not Applicable RADIOLOGY DEPARTMENT: General X-ray: Exam(s) Completed: Lower Extremity X-Ray(s): Ankle, Left and Wt. Bearing PERIPHERAL IV DATA: Not applicable SIGNED BY: RT Giovani(R) October 15, 2021 7:36 AM [facility] 10-15-2021 History of Presen t illness Narrative Radiology Service Progress Note PATIENT NAME: Fernanda Denson DATE OF SERVICE: October 15, 2021 TIME: 7:36 AM PATIENT IDENTITY VERIFICATION COMPLETED USING TWO (2) IDENTIFIERS: Name and Date of confirmed by patient verbally. FALL SCREENING: Has the patient had 2 falls in the last year or 1 fall with injury or currently using an Ambulatory Assistive Device (Walker, Cane, Wheelchair, Crutches, etc.)? No PATIENT GENDER DATA: Female. status: : No status: NO. PATIENT RELEVANT IMPLANT DATA REVIEWED: Not Applicable RADIOLOGY DEPARTMENT: General X-ray: Exam(s) Completed: Lower Extremity X-Ray(s): Ankle, Left and Wt. Bearing PERIPHERAL IV DATA: Not applicable SIGNED BY: RT Giovani(R) October 15, 2021 7:36 AM documented in this encounter [facility] 09-28-2021 Note HNO ID: [id number] Author: Jovan Granda Service: ? Author Type: Physician Type: Progress Notes Filed: 09/28/2021 9:57 PM Note Text: Initial Podiatric Office Visit: Chief Complaint: This 41 year old female who presents with chief complaint:left fibula fracture HPI Patient presents to clinic for evaluation of left ankle. Patient reports twisting her left ankle inward (09/02/21) resulting in fracture Patient presented to urgent care on the 17 of September. She was placed in a boot. She does report pain pending activity. Patient states pain is most present with stairs. Patient states that she wears the boot intermittently. Whenever she is not on her foot, she is not wearing boot. She is wearing crocs today. PAIN EVALUATION No data found in the last 1 encounters. Hemoglobin A1C (%) Date Value 10/13/2018 5.4 PCP: Galen Hill MD PAST MEDICAL HISTORY Diagnosis Date - Anxiety - Chlamydia 2001 - Crohn's disease (HCC) 2014 Dr. Ch - HPV (human papillomavirus) 2006 - Hypertension - Hypothyroid age 10 non-toxic goiter; thyroid scan - LSIL (low grade squamous intraepithelial lesion) on Pap smear 04/27/10 colpo [place] 1 - Premature contractions or systoles unsure if PACs or PVCs - Zoster age 24 Current Outpatient Medications Medication Sig - levothyroxine (LEVOXYL) 175 mcg tablet Take on empty stomach. For thyroid. Take one tablet five days a week. - sertraline (ZOLOFT) 50 mg tablet Take 1 tablet by mouth once daily. - levothyroxine (LEVOXYL) 200 mcg tablet Take on empty stomach. For thyroid Take one pill twice a week in replace of 175 mcg. - STELARA 90 mg/mL injection Once every 8 weeks - cyanocobalamin (VITAMIN B-12) 1,000 mcg tab Take 1,000 mcg by mouth once daily. - cholecalciferol (VITAMIN D-3) 5,000 unit tab Take 5,000 Units by mouth once daily. - propranolol (INDERAL) 20 mg tablet Take 2 tablets by mouth twice daily. 2 tabs twice daily - Desogestrel-Ethinyl Estradiol (VELIVET) 0.1/.125/.15-25 mg-mcg ORAL tablet Take 1 tablet by mouth once daily. No current facility-administered medications for this visit. ALLERGIES Allergen Reactions - Lavender Extract Itching Dry itchy skin PAST SURGICAL HISTORY Procedure Laterality Date - COLONOSCOPY 2014 - COLONOSCOPY 2016 - EXTRACTION, ERUPTED TOOTH OR EXPOSED ROOT (ELEVATION AND/OR FORCEPS REMOVAL) age 24 - VAGINOSCOPY 06/22/10 [place] [facility] FAMILY HISTORY Problem Relation Age of Onset - Diabetes Maternal Grandmother - Hypertension Maternal Grandmother - Heart Maternal Grandmother - Diabetes Maternal Uncle - Diabetes Maternal Uncle - Diabetes Maternal Uncle - Diabetes Maternal Uncle - Hypertension Maternal Uncle - Hypertension Maternal Uncle - Hypertension Maternal Uncle - Hypertension Maternal Uncle - Heart Mother PR with stents - Thyroid Mother - Heart Father - Alzheimer's Disease Father - Cancer Maternal Grandfather brain Social History Tobacco Use - Smoking status: Never Smoker - Smokeless tobacco: Never Used Substance Use Topics - Alcohol use: No - Drug use: No REVIEW OF SYSTEMS GENERAL: Negative for Malaise, significant weight loss, fever RESPIRATORY: Negative for cough, wheezing and shortness of breath CARDIOVASCULAR: Negative for chest pain, leg swelling and palpitations GI: Negative for abdominal discomfort, blood in stools or black stools and change in bowel habits : Negative for dysuria, frequency and incontinence MUSCULOSKELETAL: Negative for joint pain or swelling, back pain, and muscle pain. SKIN: Negative for lesions, rash, and itching. HEMATOLOGY/LYMPHOLOGY Negative for prolonged bleeding, bruising easily, and swollen nodes. ENDOCRINE: Negative for cold or heat intolerance, polyuria, polydipsia and goiter. NEURO: negative Physical Exam: Constitutional: Pt is a well developed 41 year old female who is alert, oriented and cooperative Eyes: Following during examination. No redness or drainage. Respiratory: RR normal and nonlabored. Even breathing. No evidence of distress or shortness of breath. Psychology: Patient is engaged during conversation. Normal affect and mood. Does not appear depressed or anxious during encounter. Vascular: Dorsalis pedis and posterior tibial pulses palpable as b/l Capillary Fill time < 5 seconds to digits 1-5 b/l Skin temperature warm to warm proximal to distal b/l Hair growth present to digits Neurological: intact light touch/epicritic sensation b/l intact protective sensation no significant neurological deficits Dermatological: Nails 1-5 b/l appear normal. Webspaces clean and dry 1-4 b/l. Skin appears well hydrated and supple. good color, texture, turgor. No open lesions present. No callosities present. Musculoskeletal/Orthopaedic: Patient has no pain to palpation of left ankle Foot type is neutral structurally AJ ROM is full with knee extended and flexed 1st MPJ is full w (more content not included)... [facility] 09-28-2021 Instructions Jovan Granda - 09/28/2021 3:53 PM EDT Continue with boot Repeat xrays in 2 weeks Will call with results. documented in this encounter [facility] 09-28-2021 History of Presen t illness Narrative Initial Podiatric Office Visit: Chief Complaint: This 41 year old female who presents with chief complaint:left fibula fracture HPI Patient presents to clinic for evaluation of left ankle. Patient reports twisting her left ankle inward (09/02/21) resulting in fracture Patient presented to urgent care on the 17 of September. She was placed in a boot. She does report pain pending activity. Patient states pain is most present with stairs. Patient states that she wears the boot intermittently. Whenever she is not on her foot, she is not wearing boot. She is wearing crocs today. PAIN EVALUATION No data found in the last 1 encounters. Hemoglobin A1C (%) Date Value 10/13/2018 5.4 PCP: Galen Hill MD PAST MEDICAL HISTORY Diagnosis Date Anxiety Chlamydia 2001 Crohn's disease (HCC) 2014 Dr. Ch HPV (human papillomavirus) 2006 Hypertension Hypothyroid age 10 non-toxic goiter; thyroid scan LSIL (low grade squamous intraepithelial lesion) on Pap smear 04/27/10 colpo [place] 1 Premature contractions or systoles unsure if PACs or PVCs Zoster age 24 Current Outpatient Medications Medication Sig levothyroxine (LEVOXYL) 175 mcg tablet Take on empty stomach. For thyroid. Take one tablet five days a week. sertraline (ZOLOFT) 50 mg tablet Take 1 tablet by mouth once daily. levothyroxine (LEVOXYL) 200 mcg tablet Take on empty stomach. For thyroid Take one pill twice a week in replace of 175 mcg. STELARA 90 mg/mL injection Once every 8 weeks cyanocobalamin (VITAMIN B-12) 1,000 mcg tab Take 1,000 mcg by mouth once daily. cholecalciferol (VITAMIN D-3) 5,000 unit tab Take 5,000 Units by mouth once daily. propranolol (INDERAL) 20 mg tablet Take 2 tablets by mouth twice daily. 2 tabs twice daily Desogestrel-Ethinyl Estradiol (VELIVET) 0.1/.125/.15-25 mg-mcg ORAL tablet Take 1 tablet by mouth once daily. No current facility-administered medications for this visit. ALLERGIES Allergen Reactions Lavender Extract Itching Dry itchy skin PAST SURGICAL HISTORY Procedure Laterality Date COLONOSCOPY 2014 COLONOSCOPY 2016 EXTRACTION, ERUPTED TOOTH OR EXPOSED ROOT (ELEVATION AND/OR FORCEPS REMOVAL) age 24 VAGINOSCOPY 06/22/10 [place] 1 FAMILY HISTORY Problem Relation Age of Onset Diabetes Maternal Grandmother Hypertension Maternal Grandmother Heart Maternal Grandmother Diabetes Maternal Uncle Diabetes Maternal Uncle Diabetes Maternal Uncle Diabetes Maternal Uncle Hypertension Maternal Uncle Hypertension Maternal Uncle Hypertension Maternal Uncle Hypertension Maternal Uncle Heart Mother PR with stents Thyroid Mother Heart Father Alzheimer's Disease Father Cancer Maternal Grandfather brain Social History Tobacco Use Smoking status: Never Smoker Smokeless tobacco: Never Used Substance Use Topics Alcohol use: No Drug use: No REVIEW OF SYSTEMS GENERAL: Negative for Malaise, significant weight loss, fever RESPIRATORY: Negative for cough, wheezing and shortness of breath CARDIOVASCULAR: Negative for chest pain, leg swelling and palpitations GI: Negative for abdominal discomfort, blood in stools or black stools and change in bowel habits : Negative for dysuria, frequency and incontinence MUSCULOSKELETAL: Negative for joint pain or swelling, back pain, and muscle pain. SKIN: Negative for lesions, rash, and itching. HEMATOLOGY/LYMPHOLOGY Negative for prolonged bleeding, bruising easily, and swollen nodes. ENDOCRINE: Negative for cold or heat intolerance, polyuria, polydipsia and goiter. NEURO: negative Physical Exam: Constitutional: Pt is a well developed 41 year old female who is alert, oriented and cooperative Eyes: Following during examination. No redness or drainage. Respiratory: RR normal and nonlabored. Even breathing. No evidence of distress or shortness of breath. Psychology: Patient is engaged during conversation. Normal affect and mood. Does not appear depressed or anxious during encounter. Vascular: Dorsalis pedis and posterior tibial pulses palpable as b/l Capillary Fill time < 5 seconds to digits 1-5 b/l Skin temperature warm to warm proximal to distal b/l Hair growth present to digits Neurological: intact light touch/epicritic sensation b/l intact protective sensation no significant neurological deficits Dermatological: Nails 1-5 b/l appear normal. Webspaces clean and dry 1-4 b/l. Skin appears well hydrated and supple. good color, texture, turgor. No open lesions present. No callosities present. Musculoskeletal/Orthopaedic: Patient has no pain to palpation of left ankle Foot type is neutral structurally AJ ROM is full with knee extended and flexed 1st MPJ is full when loaded and no pain or crepitus are noted with ROM. MTJ, STJ are full and free of pain and crepitus. +5/5 muscle strength dorsiflexion, plantarflexion, inversion, eversion b/l Radiographs: 3 views left ankle reviewed September 28, 2021: I have personally reviewed and interpreted these XR myself: Nondisplaced avulsion fracture of fibula ASSESSMENT: (U22.228N) Closed fracture of distal end of left fibula, unspecified fracture morphology, initial encounter (primary encounter diagnosis) PLAN: 1. History and physical examination performed. 2. XR reviewed with patient and interpreted today 3. Will repeat xrays in 2 weeks 4. Continue with boot. May consider ankle brace pending future xrays. Jovan Granda DPM Podiatry [address] [facility] [address] Dept: [phone] Dept documented in this encounter [facility] 09-17-2021 Note HNO ID: [id number] Author: Chaz Villela PA-C Service: ? Author Type: Physician Waiter/Waitress Captain Type: Progress Notes Filed: 09/17/2021 3:06 PM Note Text: This note was created using HylioSoftriter. Subjective Fernanda Denson is a 41 year old female. HPI Patient presents with left ankle pain over the past 3 weeks. She states she rolled it stepping off of a curb at the time. She has had pain and swelling since. She has been putting weight on it but tries to keep from walking on it a lot. She denies any injuries to the ankle previously. Review of Systems Musculoskeletal: Left ankle pain All other systems reviewed and are negative. PAST MEDICAL HISTORY Diagnosis Date - Anxiety - Chlamydia 2001 - Crohn's disease (HCC) 2014 Dr. Ch - HPV (human papillomavirus) 2006 - Hypertension - Hypothyroid age 10 non-toxic goiter; thyroid scan - LSIL (low grade squamous intraepithelial lesion) on Pap smear 04/27/10 [facility]po [place] [facility] - Premature contractions or systoles unsure if PACs or PVCs - Zoster age 24 Current Outpatient Medications Medication Sig Dispense Refill - levothyroxine (LEVOXYL) 175 mcg tablet Take on empty stomach. For thyroid. Take one tablet five days a week. 30 tablet 2 - sertraline (ZOLOFT) 50 mg tablet Take 1 tablet by mouth once daily. 30 tablet 5 - levothyroxine (LEVOXYL) 200 mcg tablet Take on empty stomach. For thyroid Take one pill twice a week in replace of 175 mcg. 30 tablet 3 - STELARA 90 mg/mL injection Once every 8 weeks - cyanocobalamin (VITAMIN B-12) 1,000 mcg tab Take 1,000 mcg by mouth once daily. - cholecalciferol (VITAMIN D-3) 5,000 unit tab Take 5,000 Units by mouth once daily. - propranolol (INDERAL) 20 mg tablet Take 2 tablets by mouth twice daily. 2 tabs twice daily - Desogestrel-Ethinyl Estradiol (VELIVET) 0.1/.125/.15-25 mg-mcg ORAL tablet Take 1 tablet by mouth once daily. 3 tablet 4 No current facility-administered medications for this visit. PAST SURGICAL HISTORY Procedure Laterality Date - COLONOSCOPY 2014 - COLONOSCOPY 2016 - EXTRACTION, ERUPTED TOOTH OR EXPOSED ROOT (ELEVATION AND/OR FORCEPS REMOVAL) age 24 - VAGINOSCOPY 06/22/10 [place] 1 FAMILY HISTORY Problem Relation Age of Onset - Diabetes Maternal Grandmother - Hypertension Maternal Grandmother - Heart Maternal Grandmother - Diabetes Maternal Uncle - Diabetes Maternal Uncle - Diabetes Maternal Uncle - Diabetes Maternal Uncle - Hypertension Maternal Uncle - Hypertension Maternal Uncle - Hypertension Maternal Uncle - Hypertension Maternal Uncle - Heart Mother PR with stents - Thyroid Mother - Heart Father - Alzheimer's Disease Father - Cancer Maternal Grandfather brain Social History Tobacco Use - Smoking status: Never Smoker - Smokeless tobacco: Never Used Substance Use Topics - Alcohol use: No - Drug use: No Objective BP 136/98 Pulse 102 Temp 37.2 ?C (99 ?F) Resp 18 Wt 108 kg (238 lb) LMP 03/14/2011 SpO2 96% BMI 40.63 kg/m? Physical Exam Vitals reviewed. Constitutional: Appearance: Normal appearance. HENT: Head: Normocephalic and atraumatic. Musculoskeletal: Comments: Moderate swelling to the lateral malleolus of the left ankle. Tenderness palpation here. No tenderness to the base of the fifth meta tarsal of the foot. No other tenderness of the foot. Pedal pulses 2+. Full dorsiflexion and plantar flexion of the foot. Pain on inversion and eversion of the foot on the lateral malleolus. Achilles intact on exam. Skin: General: Skin is warm and dry. Neurological: Mental Status: She is alert. Assessment and Plan ASSESSMENT/PLAN: 1. Other closed fracture of distal end of left fibula, initial encounter - ICD9: 824.8, ICD10: S82.832A X-ray read as follows.IMPRESSION: Nondisplaced distal fibular fracture of the left ankle with several cysts adjacent tiny fracture fragments. ?Ankle mortise and syndesmosis are preserved. I did make the patient aware of the potential cysts and the nondisplaced distal fibular fracture.. I will have her follow-up with podiatry. She was placed in a boot and given crutches. Instructed to be nonweightbearing until she follows up with podiatry. - XR ANKLE GENERAL 3V AP/LAT/OBL LEFT - CONSULT TO PODIATRY Chaz Villela PA-C [facility] 09-17-2021 History of Presen t illness Narrative This note was created using HylioSoftriter. Subjective Fernanda Denson is a 41 year old female. HPI Patient presents with left ankle pain over the past 3 weeks. She states she rolled it stepping off of a curb at the time. She has had pain and swelling since. She has been putting weight on it but tries to keep from walking on it a lot. She denies any injuries to the ankle previously. Review of Systems Musculoskeletal: Left ankle pain All other systems reviewed and are negative. PAST MEDICAL HISTORY Diagnosis Date Anxiety Chlamydia 2001 Crohn's disease (HCC) 2014 Dr. Ch HPV (human papillomavirus) 2006 Hypertension Hypothyroid age 10 non-toxic goiter; thyroid scan LSIL (low grade squamous intraepithelial lesion) on Pap smear 04/27/10 colpo [place] 1 Premature contractions or systoles unsure if PACs or PVCs Zoster age 24 Current Outpatient Medications Medication Sig Dispense Refill levothyroxine (LEVOXYL) 175 mcg tablet Take on empty stomach. For thyroid. Take one tablet five days a week. 30 tablet 2 sertraline (ZOLOFT) 50 mg tablet Take 1 tablet by mouth once daily. 30 tablet 5 levothyroxine (LEVOXYL) 200 mcg tablet Take on empty stomach. For thyroid Take one pill twice a week in replace of 175 mcg. 30 tablet 3 STELARA 90 mg/mL injection Once every 8 weeks cyanocobalamin (VITAMIN B-12) 1,000 mcg tab Take 1,000 mcg by mouth once daily. cholecalciferol (VITAMIN D-3) 5,000 unit tab Take 5,000 Units by mouth once daily. propranolol (INDERAL) 20 mg tablet Take 2 tablets by mouth twice daily. 2 tabs twice daily Desogestrel-Ethinyl Estradiol (VELIVET) 0.1/.125/.15-25 mg-mcg ORAL tablet Take 1 tablet by mouth once daily. 3 tablet 4 No current facility-administered medications for this visit. PAST SURGICAL HISTORY Procedure Laterality Date COLONOSCOPY 2014 COLONOSCOPY 2016 EXTRACTION, ERUPTED TOOTH OR EXPOSED ROOT (ELEVATION AND/OR FORCEPS REMOVAL) age 24 VAGINOSCOPY 06/22/10 [place] 1 FAMILY HISTORY Problem Relation Age of Onset Diabetes Maternal Grandmother Hypertension Maternal Grandmother Heart Maternal Grandmother Diabetes Maternal Uncle Diabetes Maternal Uncle Diabetes Maternal Uncle Diabetes Maternal Uncle Hypertension Maternal Uncle Hypertension Maternal Uncle Hypertension Maternal Uncle Hypertension Maternal Uncle Heart Mother PR with stents Thyroid Mother Heart Father Alzheimer's Disease Father Cancer Maternal Grandfather brain Social History Tobacco Use Smoking status: Never Smoker Smokeless tobacco: Never Used Substance Use Topics Alcohol use: No Drug use: No Objective BP 136/98 Pulse 102 Temp 37.2 C (99 F) Resp 18 Wt 108 kg (238 lb) LMP 03/14/2011 SpO2 96% BMI 40.63 kg/m Physical Exam Vitals reviewed. Constitutional: Appearance: Normal appearance. HENT: Head: Normocephalic and atraumatic. Musculoskeletal: Comments: Moderate swelling to the lateral malleolus of the left ankle. Tenderness palpation here. No tenderness to the base of the fifth meta tarsal of the foot. No other tenderness of the foot. Pedal pulses 2+. Full dorsiflexion and plantar flexion of the foot. Pain on inversion and eversion of the foot on the lateral malleolus. Achilles intact on exam. Skin: General: Skin is warm and dry. Neurological: Mental Status: She is alert. Assessment and Plan ASSESSMENT/PLAN: 1. Other closed fracture of distal end of left fibula, initial encounter - ICD9: 824.8, ICD10: S82.832A X-ray read as follows.IMPRESSION: Nondisplaced distal fibular fracture of the left ankle with several cysts adjacent tiny fracture fragments. Ankle mortise and syndesmosis are preserved. I did make the patient aware of the potential cysts and the nondisplaced distal fibular fracture.. I will have her follow-up with podiatry. She was placed in a boot and given crutches. Instructed to be nonweightbearing until she follows up with podiatry. - XR ANKLE GENERAL 3V AP/LAT/OBL LEFT - CONSULT TO PODIATRY Chaz Villela PA-C documented in this encounter [facility] 09-17-2021 Note HNO ID: [id number] Author: RT Velia(R) Service: Nuclear Medicine Author Type: Technologist Type: Progress Notes Filed: 09/17/2021 12:10 PM Note Text: Radiology Service Progress Note PATIENT NAME: Fernanda Denson DATE OF SERVICE: September 17, 2021 TIME: 12:02 PM PATIENT IDENTITY VERIFICATION COMPLETED USING TWO (2) IDENTIFIERS: Name and Date of confirmed by patient verbally. FALL SCREENING: Has the patient had 2 falls in the last year or 1 fall with injury or currently using an Ambulatory Assistive Device (Walker, Cane, Wheelchair, Crutches, etc.)? No PATIENT GENDER DATA: Female. status: : No status: NO. PATIENT RELEVANT IMPLANT DATA REVIEWED: Not Applicable RADIOLOGY DEPARTMENT: General X-ray: Exam(s) Completed: Lower Extremity X-Ray(s): Ankle, Left and Wt. Bearing PERIPHERAL IV DATA: Not applicable SIGNED BY: RT Velia(R) September 17, 2021 12:02 PM [facility] 09-03-2021 History of Presen t illness Narrative 41-year-old presents for annual exam. Patient safe at home denies abuse. Patient not sexually active has no acute concerns or. Is a breast lymph no lumps or masses. Patient wants to be more active but about 3 weeks ago rolled and broke her ankle. Patient seeing Ortho next week. Activity pending. Patient is no other acute [facility] Work Phone: [facility] Closed fracture of distal end of left fibula, unspecified fracture morphology, initial encounter- Primary [facility] Diagnosis Closed fracture of distal end of left fibula, unspecified fracture morphology, initial encounter- Primary documented in this encounter [facility] note* Diagnosis Closed fracture of distal end of left fibula, unspecified fracture morphology, initial encounter [facility]* Diagnosis Closed fracture of distal end of left fibula, unspecified fracture morphology, initial encounter- Primary documented in this encounter [facility] note* Diagnosis Closed fracture of distal end of left fibula, unspecified fracture morphology, initial encounter- Primary [facility]* Diagnosis Primary hypertension- Primary Unspecified essential hypertension Other specified hypothyroidism Crohn's disease of small intestine with intestinal obstruction (CMS/HCC) documented in this encounter [facility] Work Phone: Evaluation note* Diagnosis Need for influenza vaccination- Primary Need for prophylactic vaccination and inoculation against influenza Crohn's disease of small intestine with intestinal obstruction (CMS/HCC) Anorectal fistula Anal fistula documented in this encounter [facility] Work Phone: History of Present illness Narrative* Pt presents for periodic surveillance of chronic medical problems. 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 * HTN, stable * Due for influenza vaccine, denies problems or concerns . 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 She reports she had a history of abnormal Pap smears and underwent a LEEP. She is due for mammogram. She reports her menses come regularly with the control pill she takes. [facility] Work Phone: Reason for referral (narrative)* Diagnostic Procedure Only (Routine) - Pending Review Specialty Diagnoses / Procedures Referred By Monster gould Referred To Contact XR IMAGING Diagnoses Closed fracture of distal end of left fibula, unspecified fracture morphology, initial encounter Procedures XR ANKLE GENERAL 3V AP/LAT/OBL LEFT RADEX ANKLE COMPLETE MINIMUM 3 VIEWS Jovan Granda [address] [place] [address] Xr Imaging Referral ID Status Reason Start Date Expiration Date Visits Requested Visits Authorized [id number] Pending Review Auto-Generat ed Referral 09/28/2021 10/28/2022 1 1 [facility] for referral (narrative)* Diagnostic Procedure Only (Routine) - Pending Review Specialty Diagnoses / Procedures Referred By Contac t Referred To Contact XR IMAGING Diagnoses Closed fracture of distal end of left fibula, unspecified fracture morphology, initial encounter Procedures XR ANKLE GENERAL 3V AP/LAT/OBL LEFT RADEX ANKLE COMPLETE MINIMUM 3 VIEWS Jovan Granda [address] [place] [address] Xr Imaging Referral ID Status Reason Start Date Expiration Date Visits Requested Visits Authorized [id number] Pending Review Auto-Generat ed Referral 10/15/2021 11/14/2022 1 1 T [facility] for referral (narrative)* Diagnostic Procedure Only (Routine) - Closed Specialty Diagnoses / Procedures Referred By Contac t Referred To Contact XR IMAGING Diagnoses Closed fracture of distal end of left fibula, unspecified fracture morphology, initial encounter Procedures XR ANKLE GENERAL 3V AP/LAT/OBL LEFT RADEX ANKLE COMPLETE MINIMUM 3 VIEWS Jovan [address] [place] [address] Xr Imaging Referral ID Status Reason Start Date Expiration Date V isits Requested Visits Authorized [id number] Closed Auto-Generate d Referral 09/28/2021 10/28/2022 1 1 T [facility] for referral (narrative)* Consultation (Routine) - Authorized Specialty Diagnoses / Procedures Referred By Contac t Referred To Contact General Surgery Diagnoses Anorectal fistula Galen Hill MD [address] [facility] [place] [address] Referral ID Status Reason Start Date Expiration Date Visits Requested Visits Authorized [id number] Authorized Specialty Services Required 3 04/16/2024 1 1 [facility] Work Phone: Reason for visit Narrative* Diagnostic Procedure Only (Routine) - Closed Specialty Diagnoses / Procedures Referred By Monster t Referred To Contact XR IMAGING Diagnoses Closed fracture of distal end of left fibula, unspecified fracture morphology, initial encounter Procedures XR ANKLE GENERAL 3V AP/LAT/OBL LEFT RADEX ANKLE COMPLETE MINIMUM 3 VIEWS Jovan [address]anda[address] [place] [address] Xr Imaging Referral ID Status Reason Start Date Expiration Date V isits Requested Visits Authorized [id number] Closed Auto-Generate d Referral 09/28/2021 10/28/2022 1 1 [facility] Summary Purpose Family History No Family History Records FoundUnknown Family Member Name Dates Details Family history of diabetes m ellitus: Grandparent, Mother, Father(V18.0, Z83.3) Status:Active Family history of thyroid di sease: Grandparent(V18.19, Z83.49) Status:Active Family history of hypertensi on: Mother, Grandparent(V17.49, Z82.49) Status:Active Primary cancer of female gen ital organ: Mother Status:Active Family history of cardiac di sorder: Mother, Grandparent(V17.49, Z82.49) Status:Active Family history of malignant neoplasm of brain: Grandparent(V16.8, Z80.8) Status:Active Endometrial carcinoma: Mothe r Status:Active Family history of depression : Father(V17.0, Z81.8) Status:Active Unknown Family Member Name Dates Details Family history of diabetes m ellitus: Grandparent, Mother, Father(V18.0, Z83.3) Status:Active Family history of thyroid di sease: Grandparent(V18.19, Z83.49) Status:Active Family history of hypertensi on: Mother, Grandparent(V17.49, Z82.49) Status:Active Primary cancer of female gen ital organ: Mother Status:Active Family history of cardiac di sorder: Mother, Grandparent(V17.49, Z82.49) Status:Active Family history of malignant neoplasm of brain: Grandparent(V16.8, Z80.8) Status:Active Endometrial carcinoma: Mothe r Status:Active Family history of depression : Father(V17.0, Z81.8) Status:Active Unknown Family Member Name Dates Details Family history of depression : Father(V17.0, Z81.8) Status:Active Endometrial carcinoma: Mothe r Status:Active Family history of malignant neoplasm of brain: Grandparent(V16.8, Z80.8) Status:Active Family history of cardiac di sorder: Mother, Grandparent(V17.49, Z82.49) Status:Active Primary cancer of female gen ital organ: Mother Status:Active Family history of hypertensi on: Mother, Grandparent(V17.49, Z82.49) Status:Active Family history of thyroid di sease: Grandparent(V18.19, Z83.49) Status:Active Family history of diabetes m ellitus: Grandparent, Mother, Father(V18.0, Z83.3) Status:Active Unknown Family Member Name Dates Details Family history of depression : Father(V17.0, Z81.8) Status:Active Endometrial carcinoma: Mothe r Status:Active Family history of malignant neoplasm of brain: Grandparent(V16.8, Z80.8) Status:Active Primary cancer of female gen ital organ: Mother Status:Active Family history of hypertensi on: Mother, Grandparent(V17.49, Z82.49) Status:Active Family history of thyroid di sease: Grandparent(V18.19, Z83.49) Status:Active Family history of cardiac di sorder: Mother, Grandparent(V17.49, Z82.49) Status:Active Family history of diabetes m ellitus: Grandparent, Mother, Father(V18.0, Z83.3) Status:Active Unknown Family Member Name Dates Details Family history of diabetes m ellitus: Grandparent, Mother, Father(V18.0, Z83.3) Status:Active Family history of thyroid di sease: Grandparent(V18.19, Z83.49) Status:Active Family history of hypertensi on: Mother, Grandparent(V17.49, Z82.49) Status:Active Primary cancer of female gen ital organ: Mother Status:Active Family history of cardiac di sorder: Mother, Grandparent(V17.49, Z82.49) Status:Active Family history of malignant neoplasm of brain: Grandparent(V16.8, Z80.8) Status:Active Endometrial carcinoma: Mothe r Status:Active Family history of depression : Father(V17.0, Z81.8) Status:Active Unknown Family Member Name Dates Details Family history of diabetes m ellitus: Grandparent, Mother, Father(V18.0, Z83.3) Status:Active Family history of thyroid di sease: Grandparent(V18.19, Z83.49) Status:Active Family history of hypertensi on: Mother, Grandparent(V17.49, Z82.49) Status:Active Primary cancer of female gen ital organ: Mother Status:Active Family history of cardiac di sorder: Mother, Grandparent(V17.49, Z82.49) Status:Active Family history of malignant neoplasm of brain: Grandparent(V16.8, Z80.8) Status:Active Endometrial carcinoma: Mothe r Status:Active Family history of depression : Father(V17.0, Z81.8) Status:Active Unknown Family Member Name Dates Details Family history of diabetes m ellitus: Grandparent, Mother, Father(V18.0, Z83.3) Status:Active Family history of thyroid di sease: Grandparent(V18.19, Z83.49) Status:Active Family history of hypertensi on: Mother, Grandparent(V17.49, Z82.49) Status:Active Primary cancer of female gen ital organ: Mother Status:Active Family history of cardiac di sorder: Mother, Grandparent(V17.49, Z82.49) Status:Active Family history of malignant neoplasm of brain: Grandparent(V16.8, Z80.8) Status:Active Endometrial carcinoma: Mothe r Status:Active Family history of depression : Father(V17.0, Z81.8) Status:Active Unknown Family Member Name Dates Details Family history of diabetes m ellitus: Grandparent, Mother, Father(V18.0, Z83.3) Status:Active Family history of thyroid di sease: Grandparent(V18.19, Z83.49) Status:Active Family history of hypertensi on: Mother, Grandparent(V17.49, Z82.49) Status:Active Primary cancer of female gen ital organ: Mother Status:Active Family history of cardiac di sorder: Mother, Grandparent(V17.49, Z82.49) Status:Active Family history of malignant neoplasm of brain: Grandparent(V16.8, Z80.8) Status:Active Endometrial carcinoma: Mothe r Status:Active Family history of depression : Father(V17.0, Z81.8) Status:Active Unknown Family Member Name Dates Details Family history of diabetes m ellitus: Grandparent, Mother, Father(V18.0, Z83.3) Status:Active Family history of thyroid di sease: Grandparent(V18.19, Z83.49) Status:Active Family history of hypertensi on: Mother, Grandparent(V17.49, Z82.49) Status:Active Primary cancer of female gen ital organ: Mother Status:Active Family history of cardiac di sorder: Mother, Grandparent(V17.49, Z82.49) Status:Active Family history of malignant neoplasm of brain: Grandparent(V16.8, Z80.8) Status:Active Endometrial carcinoma: Mothe r Status:Active Family history of depression : Father(V17.0, Z81.8) Status:Active Unknown Family Member Name Dates Details Family history of diabetes m ellitus: Grandparent, Mother, Father(V18.0, Z83.3) Status:Active Family history of thyroid di sease: Grandparent(V18.19, Z83.49) Status:Active Family history of hypertensi on: Mother, Grandparent(V17.49, Z82.49) Status:Active Primary cancer of female gen ital organ: Mother Status:Active Family history of cardiac di sorder: Mother, Grandparent(V17.49, Z82.49) Status:Active Family history of malignant neoplasm of brain: Grandparent(V16.8, Z80.8) Status:Active Endometrial carcinoma: Mothe r Status:Active Family history of depression : Father(V17.0, Z81.8) Status:Active Unknown Family Member Name Dates Details Family history of diabetes m ellitus: Grandparent, Mother, Father(V18.0, Z83.3) Status:Active Family history of thyroid di sease: Grandparent(V18.19, Z83.49) Status:Active Family history of hypertensi on: Mother, Grandparent(V17.49, Z82.49) Status:Active Primary cancer of female gen ital organ: Mother Status:Active Family history of cardiac di sorder: Mother, Grandparent(V17.49, Z82.49) Status:Active Family history of malignant neoplasm of brain: Grandparent(V16.8, Z80.8) Status:Active Endometrial carcinoma: Mothe r Status:Active Family history of depression : Father(V17.0, Z81.8) Status:Active Unknown Family Member Name Dates Details Family history of diabetes m ellitus: Grandparent, Mother, Father(V18.0, Z83.3) Status:Active Family history of thyroid di sease: Grandparent(V18.19, Z83.49) Status:Active Family history of hypertensi on: Mother, Grandparent(V17.49, Z82.49) Status:Active Primary cancer of female gen ital organ: Mother Status:Active Family history of cardiac di sorder: Mother, Grandparent(V17.49, Z82.49) Status:Active Family history of malignant neoplasm of brain: Grandparent(V16.8, Z80.8) Status:Active Endometrial carcinoma: Mothe r Status:Active Family history of depression : Father(V17.0, Z81.8) Status:Active Unknown Family Member Name Dates Details Family history of diabetes m ellitus: Grandparent, Mother, Father(V18.0, Z83.3) Status:Active Family history of thyroid di sease: Grandparent(V18.19, Z83.49) Status:Active Family history of hypertensi on: Mother, Grandparent(V17.49, Z82.49) Status:Active Primary cancer of female gen ital organ: Mother Status:Active Family history of cardiac di sorder: Mother, Grandparent(V17.49, Z82.49) Status:Active Family history of malignant neoplasm of brain: Grandparent(V16.8, Z80.8) Status:Active Endometrial carcinoma: Mothe r Status:Active Family history of depression : Father(V17.0, Z81.8) Status:Active Unknown Family Member Name Dates Details Family history of diabetes m ellitus: Grandparent, Mother, Father(V18.0, Z83.3) Status:Active Family history of thyroid di sease: Grandparent(V18.19, Z83.49) Status:Active Family history of hypertensi on: Mother, Grandparent(V17.49, Z82.49) Status:Active Primary cancer of female gen ital organ: Mother Status:Active Family history of cardiac di sorder: Mother, Grandparent(V17.49, Z82.49) Status:Active Family history of malignant neoplasm of brain: Grandparent(V16.8, Z80.8) Status:Active Endometrial carcinoma: Mothe r Status:Active Family history of depression : Father(V17.0, Z81.8) Status:Active Unknown Family Member Name Dates Details Family history of diabetes m ellitus: Grandparent, Mother, Father(V18.0, Z83.3) Status:Active Family history of thyroid di sease: Grandparent(V18.19, Z83.49) Status:Active Family history of hypertensi on: Mother, Grandparent(V17.49, Z82.49) Status:Active Primary cancer of female gen ital organ: Mother Status:Active Family history of cardiac di sorder: Mother, Grandparent(V17.49, Z82.49) Status:Active Family history of malignant neoplasm of brain: Grandparent(V16.8, Z80.8) Status:Active Endometrial carcinoma: Mothe r Status:Active Family history of depression : Father(V17.0, Z81.8) Status:Active Unknown Family Member Name Dates Details Family history of diabetes m ellitus: Grandparent, Mother, Father(V18.0, Z83.3) Status:Active Family history of thyroid di sease: Grandparent(V18.19, Z83.49) Status:Active Family history of hypertensi on: Mother, Grandparent(V17.49, Z82.49) Status:Active Primary cancer of female gen ital organ: Mother Status:Active Family history of cardiac di sorder: Mother, Grandparent(V17.49, Z82.49) Status:Active Family history of malignant neoplasm of brain: Grandparent(V16.8, Z80.8) Status:Active Endometrial carcinoma: Mothe r Status:Active Family history of depression : Father(V17.0, Z81.8) Status:Active Unknown Family Member Name Dates Details Family history of diabetes m ellitus: Grandparent, Mother, Father(V18.0, Z83.3) Status:Active Family history of thyroid di sease: Grandparent(V18.19, Z83.49) Status:Active Family history of hypertensi on: Mother, Grandparent(V17.49, Z82.49) Status:Active Primary cancer of female gen ital organ: Mother Status:Active Family history of cardiac di sorder: Mother, Grandparent(V17.49, Z82.49) Status:Active Family history of depression : Father(V17.0, Z81.8) Status:Active Family history of malignant neoplasm of brain: Grandparent(V16.8, Z80.8) Status:Active Endometrial carcinoma: Mothe r Status:Active Unknown Family Member Name Dates Details Family history of diabetes m ellitus: Grandparent, Mother, Father(V18.0, Z83.3) Status:Active Family history of thyroid di sease: Grandparent(V18.19, Z83.49) Status:Active Family history of hypertensi on: Mother, Grandparent(V17.49, Z82.49) Status:Active Primary cancer of female gen ital organ: Mother Status:Active Family history of cardiac di sorder: Mother, Grandparent(V17.49, Z82.49) Status:Active Family history of malignant neoplasm of brain: Grandparent(V16.8, Z80.8) Status:Active Endometrial carcinoma: Mothe r Status:Active Family history of depression : Father(V17.0, Z81.8) Status:Active Unknown Family Member Name Dates Details Family history of diabetes m ellitus: Grandparent, Mother, Father(V18.0, Z83.3) Status:Active Family history of thyroid di sease: Grandparent(V18.19, Z83.49) Status:Active Family history of hypertensi on: Mother, Grandparent(V17.49, Z82.49) Status:Active Primary cancer of female gen ital organ: Mother Status:Active Family history of cardiac di sorder: Mother, Grandparent(V17.49, Z82.49) Status:Active Family history of malignant neoplasm of brain: Grandparent(V16.8, Z80.8) Status:Active Endometrial carcinoma: Mothe r Status:Active Family history of depression : Father(V17.0, Z81.8) Status:Active Advance Directives No Advanced Directives Records FoundDocuments on File Type Date Recorded 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 12/29/2015 Documents on File Type Date Recorded 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 12/29/2015 Reason for Referral Specialty Diagnoses / Procedures Referred By Contac t Referred To Contact Podiatry Diagnoses Other closed fracture of distal end of left fibula, initial encounter Procedures CONSULT TO PODIATRY OFFICE/OUTPATIENT [facility] 60-74 MINUTES Chaz Villela PA-C [address] [place] [address] Referral ID Status Reason Start Date Expiration Date Visits Requested Visits Authorized [id number] Authorized PCP Requested Referral 09/17/2021 09/17/2022 1 1 Specialty Diagnoses / Procedures Referred By Contac t Referred To Contact XR IMAGING Diagnoses Other closed fracture of distal end of left fibula, initial encounter Procedures XR ANKLE GENERAL 3V AP/LAT/OBL LEFT RADEX ANKLE COMPLETE MINIMUM 3 VIEWS Chaz Villela PA-C [address] [place] [address] Xr Imaging Referral ID Status Reason Start Date Expiration Date V isits Requested Visits Authorized [id number] Closed Auto-Generate d Referral 09/17/2021 10/17/2022 1 1 Specialty Diagnoses / Procedures Referred By Contac t Referred To Contact [facility] Diagnoses Closed fracture of distal end of left fibula, unspecified fracture morphology, initial encounter Procedures CONSULT TO PHYSICAL THERAPY PHYSICAL THERAPY EVALUATION HIGH COMPLEX 45 MINS Jovan [address] [place] [address] [facility] [address] [place] [address] Referral ID Status Reason Start Date Expiration Date Visits Requested Visits Authorized [id number] Pending Review Auto-Generat ed Referral 11/23/2021 11/23/2022 1 1 Chief Complaint Patient here today for annual exam. She has no concerns. She had LEEP in 2016. Last pap: 2cotest negative. last mammo: 2PT IS HERE TODAY FOR HER ANNUAL EXAM. LAST PAP WAS 07/23/18, NIL. HAS NO CONCERNS. NEEDS A REFILL ON HER B/C. DOES A SELF BREAST CHECK. NEEDS A MAMMOGRAM ORDER. LMP: 08/30/2021 Additional Source Comments INFORMATION SOURCE (unrecogn ized section and content) DATE CREATED AUTHOR AUTHOR'S ORGANIZ ATION 05/14/2018 [facility] DATE CREATED AUTHOR AUTHOR'S ORGANIZ ATION 03/05/2022 [facility] DATE CREATED AUTHOR AUTHOR'S ORGANIZ ATION 09/27/2022 [facility] DATE CREATED AUTHOR AUTHOR'S ORGANIZ ATION 09/28/2022 [facility] DATE CREATED AUTHOR AUTHOR'S ORGANIZ ATION 10/09/2022 [facility] DATE CREATED AUTHOR AUTHOR'S ORGANIZ ATION 04/23/2023 [facility] DATE CREATED AUTHOR AUTHOR'S ORGANIZ ATION 05/17/2023 [facility] Source Comments (unrecognize d section and content) In the event this informatio n is protected by the Federal Confidentiality of Alcohol and Drug Abuse Patient Records regulations: The Federal rules restrict any use of the information to criminally investigate or prosecute any alcohol or drug abuse patient.[facility] the event this information is protected by the Federal Confidentiality of Alcohol and Drug Abuse Patient Records regulations: The Federal rules restrict any use of the information to criminally investigate or prosecute any alcohol or drug abuse patient.[facility] the event this information is protected by the Federal Confidentiality of Alcohol and Drug Abuse Patient Records regulations: The Federal rules restrict any use of the information to criminally investigate or prosecute any alcohol or drug abuse patient.[facility] the event this information is protected by the Federal Confidentiality of Alcohol and Drug Abuse Patient Records regulations: The Federal rules restrict any use of the information to criminally investigate or prosecute any alcohol or drug abuse patient.[facility] the event this information is protected by the Federal Confidentiality of Alcohol and Drug Abuse Patient Records regulations: The Federal rules restrict any use of the information to criminally investigate or prosecute any alcohol or drug abuse patient.[facility] Center[facility] the event this information is protected by the Federal Confidentiality of Alcohol and Drug Abuse Patient Records regulations: The Federal rules restrict any use of the information to criminally investigate or prosecute any alcohol or drug abuse patient.[facility] Center[facility] the event this information is protected by the Federal Confidentiality of Alcohol and Drug Abuse Patient Records regulations: The Federal rules restrict any use of the information to criminally investigate or prosecute any alcohol or drug abuse patient.[facility] Reason for Visit (unrecogniz ed section and content) Reason Comments New Patient left foot fracture Reason Comments Results Reason Comments Fracture Reason Comments PT Eval Specialty Diagnoses / Procedures Referred By Contac t Referred To Contact [facility] Diagnoses Closed fracture of distal end of left fibula, unspecified fracture morphology, initial encounter Procedures CONSULT TO PHYSICAL THERAPY PHYSICAL THERAPY EVALUATION HIGH COMPLEX 45 MINS Jovan [address] [place] [address] [facility] [address] [place] [address] Referral ID Status Reason Start Date Expiration Date V isits Requested Visits Authorized [id number] Authorized 06/05/2021 06/04/2022 30 30 Care Teams (unrecognized sec tion and content) Boning Room Worker Relationship Specialty Start Date End Date [place] [address] [place] [address] PCP - General Family Practice 09/17/21 Boning Room Worker Relationship Specialty Start Date End Date [place] [facility] [address] [place] [address] PCP - General Family Practice 09/17/21 Boning Room Worker Relationship Specialty Start Date End Date [place] [address] [place] [address] PCP - General Family Practice 09/17/21 Boning Room Worker Relationship Specialty Start Date End Date [place] [address] [place] [address] PCP - General Family Practice 09/17/21 Boning Room Worker Relationship Specialty Start Date End Date [facility] MD PCP - General Family Practice 09/17/21 Boning Room Worker Relationship Specialty Start Date End Date [facility] MD PCP - General Family Practice 09/17/21 Boning Room Worker Relationship Specialty Start Date End Date [place] MD [address] [facility] [place] [address] PCP - [employer] PCP 05/05/22 [place] MD [address] [facility] [place] [address] PCP - General Family Medicine 02/09/23 Steph Rueda LPN [facility] [employer] Worker 02/09/23 Boning Room Worker Relationship Specialty Start Date End Date [place] MD [address] [facility] [place] [address] PCP - [employer] PCP 05/05/22 [place] MD [address] [facility] [place] [address] PCP - General Family Medicine 02/09/23 Steph Rueda LPN [facility] [employer] Worker 02/09/23 FOR RECORDS PERTAINING TO PATIENTS WHO ARE OR HAVE BEEN ENROLLED IN A CHEMICAL DEPENDENCY/SUBSTANCEABUSE PROGRAM, SOME INFORMATION MAY BE OMITTED. This clinical summary was aggregated from multiple sources. Caution should be exercised in using it in the provision of clinical care. This summary normalizes information from multiple sources, and as a consequence, information in this document may materially change the coding, format and clinical context of patient data. In addition, data may be omitted in some cases. CLINICAL DECISIONS SHOULD BE BASED ON THE PRIMARY CLINICAL RECORDS. [employer]. provides no warranty or guarantee of the accuracy or completeness of information in this document.
[2023-06-15 08:47] LABS: CREATININE FINGERSTICK < 1.0 mg/dL (0.55-1.02); EGFR FINGERSTICK > 60.0000 mL/min (>60)
== END | disposition home or self-care (01) ==
LOC: MRI 08:14
PROVIDERS: PCP Family Medicine; Referring Provider Internal Medicine Gastroenterology; Visit Provider Internal Medicine Gastroenterology
DX: K50.90 Crohn's disease, unspecified, without complications (principal)
CPT/HCPCS: 72197; A9575

== ENCOUNTER → 2023-11-01 | Outpatient (CLI) | payer OTHER, SELFPAY ==
[2023-11-08 19:08] LABS: Calprotectin, Stool 237 ug/g (0-120)
== END | disposition home or self-care (01) ==
PROVIDERS: PCP Family Medicine; Referring Provider Internal Medicine Gastroenterology; Visit Provider Internal Medicine Gastroenterology
DX: K50.90 Crohn's disease, unspecified, without complications (principal)
CPT/HCPCS: 83630; 83993

== ENCOUNTER 2023-11-04 21:25 | Inpatient (IN) | payer OTHER, SELFPAY ==
[2023-11-04 21:25] VITALS: BP 148/127; PULSE 140; RESP 19; TEMP 36.7; O2SAT 95; BMI 41.1
--- NOTE | 2023-11-04 21:35 | CT_ITS ---
INDICATION: abd pain, Crohn''s, H/O bowel obstruction COMPARISON: Pelvis MRI 06/15/2023. IV Contrast dosage and agent: 99 cc [id number]-370 IV. A radiation dose optimization technique was used for this scan. RADIATION DOSAGE (If Supplied By Facility): CTDIvol/DLP = ( 20.32 ) / ( 1364.44 ) mGy/mGycm FINDINGS: Contrast enhanced serial CT axial images through the abdomen and pelvis with coronal and sagittal reformatted series. PANCREAS: No peripancreatic fat stranding. BOWEL/MESENTERY: Numerous dilated small bowel loops containing air-fluid levels with associated adjacent mesenteric fat stranding. Transition point at the terminal ileum where there is short segment of marked wall thickening, consistent with enteritis. No significant focal fluid collection is appreciated. No free air. GALLBLADDER: Dependent cholelithiasis without pericholecystic fat stranding. LIVER/STOMACH: No obvious abnormality. URINARY COLLECTING SYSTEM/ KIDNEYS: No obstructing ureteral calculus. No significant renal parenchymal abnormality. APPENDIX: Normal caliber gas containing appendix. LUNG BASES: Unremarkable. BONES: Unremarkable for age. CT/Abdomen/Pelvis W IV Cont ONLY IMPRESSION: Numerous dilated small bowel loops containing air-fluid levels with associated adjacent mesenteric fat stranding, ileus versus bowel obstruction. Transition point at the terminal ileum where there is short segment of marked wall thickening, consistent with enteritis. Electronically Signed: Roni Velasquez MD at 1:01 EDT ,
--- NOTE | 2023-11-04 21:36 | EDS_ITS ---
HPI History of Present Illness Chief Complaint: Abd Pain Informant: patient Onset/Context/Timing Onset: Today Context: Gradual Onset Narrative Narrative: Patient presents secondary to abdominal pain with nausea and vomiting. She is concerned she has another bowel obstruction. Patient does have a history of Crohn's disease. She denies any prior abdominal surgeries. She developed diffuse abdominal pain this morning and progressed to nausea and vomiting about 4 PM this afternoon. Her last bowel movement was at 5 PM. She has not been passing gas since that time. She has had subjective fevers and chills but nothing measured at home. She denies urinary symptoms. She denies possibility of . [facility] Medical History (Updated 11/05/23 @ 01:[address] Maryellen Hebert MD) Anxiety GERD (gastroesophageal reflux disease) History of small bowel obstruction Obesity Anxiety and depression Crohn disease Hypothyroidism Hypertension Home Medications ?Medication ?Instructions ?Recorded ?Last Taken ?Type cholecalciferol (vitamin D3) 125 5,000 unit PO DAILY 10/24/18 02/07/23 06:30 History mcg (5,000 unit) capsule desogestrel-ethinyl estradiol 0.1 1 tab PO DAILY 10/24/18 02/07/23 06:30 History mg/0.125 mg/0.15 mg-25 mcg tablet (Velivet Triphasic Regimen (28)) levothyroxine 175 mcg tablet 175 mcg PO DAILY 10/24/18 02/07/23 06:30 History propranolol 40 mg tablet 40 mg PO BID 10/24/18 02/07/23 06:30 History sertraline 50 mg tablet 50 mg PO DAILY 10/24/18 02/07/23 06:30 History vitamin B complex (B 1 tab PO DAILY 02/07/23 02/07/23 06:30 History Complex-Vitamin B12 tablet) risankizumab-rzaa 60 mg/mL 600 mg (10 mL) .Route .COMPLEX #10 08/23/23 Unknown Rx intravenous solution (Skyrizi) mL risankizumab-rzaa 360 mg/2.4 mL 360 mg (2.4 mL) subcut Q8W #2.4 mL 09/12/23 Unknown Rx (150 mg/mL) subcut wearable injector (Skyrizi) levothyroxine 200 mcg tablet 200 mcg PO DAILY 11/04/23 Unknown History Allergy/AdvReac Type Severity Reaction Status Date / Time No Known Allergies Allergy Verified 11/04/23 21:26 Surgical History History of dental surgery Social History household members: spouse Smoking Status: Never smoker alcohol intake: never substance use type: does not use ROS ROS ED Constitutional Constitutional ED: Reports chills, fever(s) and subjective Eyes Eyes: Denies discharge from eye(s) ENT ENT ED: Denies discharge from eye(s), rhinorrhea or sore throat Cardiovascular Cardiovascular: Denies chest pain or palpitations Respiratory/Chest Respiratory/Chest: Denies cough or dyspnea Gastrointestinal Gastrointestinal: Reports abdominal pain, nausea and vomiting; Denies diarrhea Genitourinary Genitourinary ED: Denies dysuria Musculoskeletal Musculoskeletal: Denies back pain or extremity pain Integumentary Denies Abrasions or rash Neurologic Neurologic: Reports weakness; Denies headache(s) Psychiatric Psychiatric: Denies anxiety or depression Allergic/Immunologic Allergic/Immunologic ED: Denies lip swelling or urticaria EXAM Physical Exam Const Vital Signs: 11/04/23 21:25 Temperature 98.1 F Temperature Source Temporal Pulse Rate 140 H Respiratory Rate 19 H Blood Pressure 148/127 H Blood Pressure Mean 134 Pulse Ox 95 Oxygen Delivery Method Room Air Positive well nourished and well developed General Appearance ED: well developed HEENT Reports moist mucous membranes Eyes EOMs intact bilaterally Chest Wall inspection of chest normal and palpation of chest normal Resp normal respiratory effort and clear to auscultation bilaterally Cardio regular rhythm Rate: tachycardic GI GI Narrative: Abdomen soft with diffuse tenderness palpation. No guarding or rebound. Rare bowel sounds auscultated. Extremity normal to inspection Neuro oriented x3 and no sensory deficits noted Motor Exam: strength 5/5 throughout Psych mental status grossly normal Skin no rashes or lesions noted MDM MDM MDM Narrative Medical decision making narrative: IV line established. Patient given morphine, Zofran, IV fluids. Labwork obtained to evaluate for leukocytosis, anemia, and electrolyte derangement. Urinalysis obtained to evaluate for infection/hematuria. CT scan of the abdomen and pelvis with IV contrast obtained to evaluate for Crohn's flare and bowel obstruction. History & Record Review Discussion w/independent historian: Family Additional record(s) reviewed:: Prior inpatient record, Prior outpatient record, Prior ED visit and Prior labs Lab Data Attestation: I reviewed the patient's lab results. Labs: Laboratory Results - last 24 hr 11/04/23 11/04/23 22:00 23:20 WBC 11.8 H RBC 4.83 Hgb 14.2 Hct 43.7 MCV 90.5 MCH 29.4 MCHC 32.5 RDW Std Deviation 49.4 H RDW Coeff of Brandan 14.8 H Plt Count 605 H MPV 9.1 Immature Gran % (Auto) 0.300 Neut % (Auto) 78.4 H Lymph % (Auto) 16.6 L [place] % (Auto) 3.6 Eos % (Auto) 0.8 Baso % (Auto) 0.3 Absolute Neuts (auto) 9.3 H Absolute Lymphs (auto) 1.96 Nucleated RBC % 0 Sodium 134 L Potassium 4.4 Chloride 102 Carbon Dioxide 19.0 L Anion Gap 13 BUN 8 Creatinine 0.84 Estim Creat Clear Calc 103.96 Est GFR (MDRD) Af Amer 95 Est GFR (MDRD) Non-Af 78 BUN/Creatinine Ratio 9.5 L Glucose 172 H Calcium 9.6 Total Bilirubin 0.50 Direct Bilirubin 0.08 AST 28 ALT 19 Alkaline Phosphatase 75 Total Protein 8.3 H Albumin 2.7 L Globulin 5.6 H Lipase 36 Serum , Qual NEGATIVE Urine Color Yellow Urine Clarity Clear Urine pH 5.0 Ur Specific [place] 1.025 Urine Protein 30 H Urine Glucose (UA) Normal Urine Ketones 150 A* Urine Occult Blood 50 H Urine Nitrite Negative Urine Bilirubin 1 H Urine Urobilinogen Normal Ur Leukocyte Esterase Negative Radiography Diagnostic Testing: Clinical Impression(s) from Imaging Studies Abdomen/Pelvis CT 11/04/23 21:35 IMPRESSION: Numerous dilated small bowel loops containing air-fluid levels with associated adjacent mesenteric fat stranding, ileus versus bowel obstruction. Transition point at the terminal ileum where there is short segment of marked wall thickening, consistent with enteritis. Electronically Signed: Roni Velasquez MD at 1:01 EDT , Treatment and Re-Evaluation :: White blood cell count is 11.8 with 78% neutrophils. Hemoglobin 14.2. Chemistry studies reveal slightly low bicarb at 19. LFTs unremarkable. Lipase normal. test is negative. Urinalysis significant only for ketones. CT scan of the abdomen pelvis reveals numerous dilated small bowel loops with air-fluid levels along with adjacent mesenteric fat stranding. Ileus versus bowel obstruction. Transition point at the terminal ileum where there is a short segment of marked wall thickening consistent with enteritis. On review of prior records patient has had similar findings on prior studies. On her MR enterography study she has a known narrowing at the terminal ileum. I did review her admission last fall with similar symptoms and findings. Patient was treated with Zosyn, PPI, Solu-Medrol 60 mg every 12 hours. This will be initiated for her. Test results were discussed with the patient and she is comfortable with the plan. I will speak with hospitalist regarding admission and anticipate that GI will be consulted to see her as she is known to Dr. Rousseau. Discharge Plan Triage Chief Complaint: Abd Pain ED Provider: Maryellen Hebert Dx/Rx/DC Orders Clinical Impression: Crohn's disease, Ileus Prescriptions: No Action levothyroxine 175 MCG tablet 175 mcg PO DAILY Patient Comments: TAKE ONE TABLET BY MOUTH 6 DAYS A WEEK Velivet Triphasic Regimen (28) 1 EACH tablet 1 tab PO DAILY Patient Comments: TAKE 1 TABLET BY MOUTH EVERY DAY propranolol 40 MG tablet 40 mg PO BID sertraline 50 MG tablet 50 mg PO DAILY Patient Comments: TAKE 1 TABLET BY MOUTH EVERY DAY cholecalciferol (vitamin D3) 5,000 UNIT capsule 5,000 unit PO DAILY vitamin B complex [B Complex-Vitamin B12] Tablet 1 tab PO DAILY levothyroxine 200 mcg tablet 200 mcg PO DAILY Rx Instructions: 5 days a week Skyrizi 60 mg/mL solution 600 mg .ROUTE .COMPLEX Qty: 10 0RF Rx Instructions: Infuse 600mg on week zero, four and eight Skyrizi 360 mg/2.4 mL (150 mg/mL) wearable injector 360 mg subcut Q8W Qty: 2.4 6RF Rx Instructions: Approved 08.25.23-08.23.24 authorization number: [id number] Primary Care Provider: Johanna Saldivar Referrals: Johanna Saldivar MD [Primary Care Provider] - Print Language: Khmer Disposition Disposition: Acute Care Hospital [facility]
[2023-11-04] MEDS: Ondansetron 4 MG/2 ML Vial IV (22:01)
[2023-11-04] MEDS: 0.9% Normal Saline (1000mL) 1,000 ML 150 ML IV (22:03)
[2023-11-04] MEDS: Morphine 4 MG/ML Syringe IV (22:03)
[2023-11-04 22:11] LABS: Absolute Lymphocyte Count 1.96 X10^3/uL (0.83-4.51); Absolute Neutrophil Count 9.3 X10^3/uL (2.0-7.7); Basophil# 0.04 X10^3/uL; Basophil% 0.3 % (0-1); Eosinophils% 0.8 % (0-5); Hematocrit 43.7 % (37-47); Hemoglobin 14.2 g/dL (12.0-15.0); Lymphocyte # 1.96 X10^3/ul (0.83-4.51); Lymphocyte % 16.6 % (19-41); Mean Corp Hgb Conc 32.5 g/dL (32-36); Mean Corpuscular Hgb 29.4 pg (27.0-32.0); Mean Corpuscular Volume 90.5 fL (81-99); Mean Platelet Vol. 9.1 fl (6.2-12.0); Monocyte# 0.43 X10^3/uL; Monocyte% 3.6 % (0-10); NRBC Flagged by Analyzer 0 % (0-5); Neutrophil # 9.27 X10^3/uL (2.7-7.7); Neutrophil % 78.4 % (47-70); Platelet Count 605 K/mm3 (150-450); RBC Distribution Width CV 14.8 % (11.6-14.6); RBC Distribution Width SD 49.4 fl (35.1-43.9); Red Blood Count 4.83 M/mm3 (4.2-5.4); White Blood Count 11.8 K/mm3 (4.4-11.0)
[2023-11-04 22:48] LABS: AST(SGOT) 28 U/L (15-37); Alanine Aminotransfer ALT/SGPT 19 U/L (13-56); Albumin, Serum 2.7 g/dL (3.2-5.0); Alkaline Phosphatase 75 U/L (45-117); Anion Gap 13 (5-15); BUN 8 mg/dL (7-18); BUN/Creat Ratio 9.5 RATIO (10-20); Bilirubin, Direct 0.08 mg/dL (0.00-0.30); Calcium,Total 9.6 mg/dL (8.5-10.1); Chloride 102 mmol/L (98-107); Creatinine, Serum 0.84 mg/dL (0.55-1.02); EST Glomerular Filtration Rate 78 mL/min (>60); Est Glom Filt Rate - Afr Amer 95 mL/min (>60); Estimated Creatinine Clearance 103.96 ml/min; Globulin 5.6 g/dL (2.2-4.2); Glucose 172 mg/dL (74-106); Lipase 36 U/L (13-75); Potassium 4.4 mmol/L (3.5-5.1); Protein, Total 8.3 g/dL (6.4-8.2); Sodium Level 134 mmol/L (136-145)
[2023-11-04 22:49] LABS: Internal QC Validated? YES +Cl - CLEAR BKGD; Pregnancy, Serum, hCG Quali. NEGATIVE Negative
[2023-11-04 23:25] VITALS: BP 132/82; PULSE 100; RESP 16; O2SAT 95
[2023-11-05] VITALS (7 sets, daily range): BP systolic 117–134; BP diastolic 74–93; PULSE 80–102; RESP 16–18; TEMP 36.6–37; O2SAT 94–98; BMI 41.2; BMI 41.0
[2023-11-05] MEDS: MethylPREDNISolone 125 MG/2 ML Vial 60 MG IV ×2 (01:20→09:53)
[2023-11-05] MEDS: Pantoprazole Sodium 40 MG in 0.9% Normal Saline (100mL MB+) 100 ML 330 MG IV ×2 (01:21→09:52)
[2023-11-05] MEDS: 0.9% Normal Saline (1000mL) 1,000 ML 150 ML IV (01:21)
[2023-11-05] MEDS: Piperacil/Tazobactam 3.375 GM in 0.9% Normal Saline (50mL MB+) 50 ML IV ×2 (01:23→07:07)
--- NOTE | 2023-11-05 01:30 | PCM.HP.STD ---
HPI - General General Date of Admission: 11/05/23 Date of Service: 11/05/23 Chief Complaint: Abdominal pain, N/V. HPI Narrative The patient is a 43 y/o F w/ PMHx: Morbid obesity, Anxiety and Depression, Hypothyroidism, HTN, GERD, Hx SBO, Crohn's disease who presents to the [facility] ED on 11/05/23 with history of onset of abdominal discomfort with diffuse abdominal pain starting in the morning with eventual onset of nausea and emesis starting at 4 PM with last bowel movement at 5 PM with no flatus since then and onset of subjective fevers and chills although she has not measured her temperature at home similar to previous with concern for possible bowel obstruction prompting ED return for assessment. Patient has been following with gastroenterology Dr. Rousseau with most recent evaluation 09/26/2023. She had been on Stelara but it stopped this secondary to cost. She has had 2 induction infusions of Skyrizi. Currently upon ED evaluation she reports the pain ongoing diffuse involving all quadrants of the abdomen and rates it 4 out of 10 in severity. She notes that the discomfort waxes and wanes. Workup in the ED included T98.1, heart rate 140, BP 148/127, respiratory rate 19, 95% on room air with most recent repeat vital signs heart rate 101, BP 117/87, respiratory rate 16, 95% on room air, CBC with WC 11.8, hemoglobin 14.2, platelet 65 with left shift, CMP with sodium 134, carbon dioxide 19, glucose 172 otherwise hepatic profile not marked appearing, lipase 36, serum testing negative, urinalysis with elevated specific gravity 1.025, protein 30, ketones 150, occult blood 50, negative nitrite, negative leukocyte Estrace, CT abdomen and pelvis with numerous dilated small bowel loops containing air-fluid level with associated adjacent mesenteric fat stranding secondary to ileus versus bowel obstruction with transition point at the terminal ileum where there is a short segment of marked wall thickening consistent with enteritis. In the ED patient administered IV Zosyn, Protonix 40 mg IV x 1, Zofran 4 mg IV x 1, morphine 4 mg IV x 1, Solu-Medrol 60 mg IV x 1 and maintenance IV fluids. [facility] Medical History Anxiety GERD (gastroesophageal reflux disease) History of small bowel obstruction Obesity Anxiety and depression Crohn disease Hypothyroidism Hypertension Home Medications ?Medication ?Instructions ?Recorded ?Last Taken ?Type cholecalciferol (vitamin D3) 125 5,000 unit PO DAILY 10/24/18 02/07/23 06:30 History mcg (5,000 unit) capsule desogestrel-ethinyl estradiol 0.1 1 tab PO DAILY 10/24/18 02/07/23 06:30 History mg/0.125 mg/0.15 mg-25 mcg tablet (Velivet Triphasic Regimen (28)) levothyroxine 175 mcg tablet 175 mcg PO DAILY 10/24/18 02/07/23 06:30 History propranolol 40 mg tablet 40 mg PO BID 10/24/18 02/07/23 06:30 History sertraline 50 mg tablet 50 mg PO DAILY 10/24/18 02/07/23 06:30 History vitamin B complex (B 1 tab PO DAILY 02/07/23 02/07/23 06:30 History Complex-Vitamin B12 tablet) risankizumab-rzaa 60 mg/mL 600 mg (10 mL) .Route .COMPLEX #10 08/23/23 Unknown Rx intravenous solution (Skyrizi) mL risankizumab-rzaa 360 mg/2.4 mL 360 mg (2.4 mL) subcut Q8W #2.4 mL 09/12/23 Unknown Rx (150 mg/mL) subcut wearable injector (Skyrizi) levothyroxine 200 mcg tablet 200 mcg PO DAILY 11/04/23 Unknown History Allergy/AdvReac Type Severity Reaction Status Date / Time No Known Allergies Allergy Verified 11/04/23 21:26 Family History (Updated 11/05/23 @ 02:[address] Aure Hernandez MD) Mother CAD (coronary artery disease) Heart disease Hypertension Myocardial infarction other (Patient does not know her paternal or paternal family history.) Surgical History History of dental surgery Social History household members: spouse Smoking Status: Never smoker alcohol intake: never substance use type: does not use ROS ROS Narrative Admission Review of Systems: CONSTITUTIONAL: No weight loss, + subjective fever/chills, weakness or fatigue. HEENT: Eyes: No visual loss, blurred vision, double vision or yellow sclerae. Ears, Nose, Throat: No hearing loss, sneezing, congestion, runny nose or sore throat. SKIN: No rash or itching, lesions, wounds. CARDIOVASCULAR: No chest pain, chest pressure or chest discomfort, palpitations, edema, orthopnea, syncopal events. RESPIRATORY: No shortness of breath, cough or sputum, wheezing, hemoptysis. GASTROINTESTINAL: + anorexia, nausea, vomiting, abdominal cramping/pain, lack of flatus. No diarrhea, melena, BRBPR. GENITOURINARY: No dysuria, frequency, urgency or retention. NEUROLOGICAL: No headache, dizziness, syncope, paralysis, ataxia, numbness or tingling in the extremities, focal weakness, change in bowel or bladder control, seizure. MUSCULOSKELETAL: No muscle, back pain, joint pain or stiffness. HEMATOLOGIC: No anemia, bleeding or bruising. LYMPHATICS: No enlarged nodes. No history of splenectomy. PSYCHIATRIC: + history of depression and anxiety. ENDOCRINOLOGIC: No reports of sweating, cold or heat intolerance. No polyuria or polydipsia. ALLERGIES: No history of asthma, hives, eczema or rhinitis. Vital Signs Vital Signs Vital Signs: 11/04/23 21:25 11/04/23 23:25 11/05/23 01:16 Temperature 98.1 F Temperature Source Temporal Pulse Rate 140 H 100 101 H Respiratory Rate 19 H 16 16 Blood Pressure 148/127 H 132/82 H 117/87 H Blood Pressure Mean 134 98 97 Pulse Ox 95 95 95 Oxygen Delivery Method Room Air Room Air Room Air 11/05/23 01:27 Temperature 97.9 F Temperature Source Pulse Rate 80 Respiratory Rate 17 Blood Pressure 121/93 H Blood Pressure Mean 102 Pulse Ox 97 Oxygen Delivery Method Weight Weight: 239 lb 6.4 oz Body Mass Index (BMI) 41.1 Physical Exam Narrative Physical Examination: General: Awake, alert, oriented x 3 and cooperative, seated upright in the ED bed, fatigued, notes pain now decreased to 2/10. Skin: Normal color, normal turgor, no icterus, no cyanosis. HEENT: AT/NC, EOMI, PERRLA, dry MM, no carotid bruits or JVD noted. Lungs: Mildly diminished, greater bases, proper effort, no rales, ronchi or wheezing. Heart: Regular rate and rhythm; no gallop, rub audible. Abdomen: Soft, diffuse TTP in all quadrants with no rebound or guarding, unable to discern distention or HSM given habitus, absent bowel sounds. Extremities: No cyanosis, clubbing, or edema. Neurological: Patient awake, alert, oriented as noted, cognitive function intact; pupils equally reactive to light and accommodation, cranial nerves II-XII grossly normal, moving all 4 extremities, no focal deficits, strength improving, moderately global decreased secondary to acute presentation. Psychiatric: Affect appears fatigued, mildly uncomfrtable, no acute evidence of depressive or anxiety feelings but does have underlying history. Results Lab / Micro Data 11/04/23 22:00 11/04/23 22:00 Labs: Laboratory Results - last 24 hr 11/04/23 22:00: WBC 11.8 H, RBC 4.83, Hgb 14.2, Hct 43.7, MCV 90.5, MCH 29.4, MCHC 32.5, RDW Std Deviation 49.4 H, RDW Coeff of Brandan 14.8 H, Plt Count 605 H, MPV 9.1, Immature Gran % (Auto) 0.300, Neut % (Auto) 78.4 H, Lymph % (Auto) 16.6 L, [place] % (Auto) 3.6, Eos % (Auto) 0.8, Baso % (Auto) 0.3, Absolute Neuts (auto) 9.3 H, Absolute Lymphs (auto) 1.96, Nucleated RBC % 0, Sodium 134 L, Potassium 4.4, Chloride 102, Carbon Dioxide 19.0 L, Anion Gap 13, BUN 8, Creatinine 0.84, Estim Creat Clear Calc 103.96, Est GFR (MDRD) Af Amer 95, Est GFR (MDRD) Non-Af 78, BUN/Creatinine Ratio 9.5 L, Glucose 172 H, Calcium 9.6, Total Bilirubin 0.50, Direct Bilirubin 0.08, AST 28, ALT 19, Alkaline Phosphatase 75, Total Protein 8.3 H, Albumin 2.7 L, Globulin 5.6 H, Lipase 36, Serum , Qual NEGATIVE 11/04/23 23:20: Urine Color Yellow, Urine Clarity Clear, Urine pH 5.0, Ur Specific [place] 1.025, Urine Protein 30 H, Urine Glucose (UA) Normal, Urine Ketones 150 A*, Urine Occult Blood 50 H, Urine Nitrite Negative, Urine Bilirubin 1 H, Urine Urobilinogen Normal, Ur Leukocyte Esterase Negative Imaging Radiology Impression Abdomen/Pelvis CT 11/04/23 21:35 IMPRESSION: Numerous dilated small bowel loops containing air-fluid levels with associated adjacent mesenteric fat stranding, ileus versus bowel obstruction. Transition point at the terminal ileum where there is short segment of marked wall thickening, consistent with enteritis. Electronically Signed: Roni Velasquez MD at 1:01 EDT , Assessment & Plan Assessment/Plan (1) Crohn's disease: (2) Ileus: PLAN: Plan The patient is a 43 y/o F w/ PMHx: Morbid obesity, Anxiety and Depression, Hypothyroidism, HTN, GERD, Hx SBO, Crohn's disease who presents to the [facility] ED on 11/05/23 with history of onset of abdominal discomfort with diffuse abdominal pain starting in the morning with eventual onset of nausea and emesis starting at 4 PM with last bowel movement at 5 PM with no flatus since then and onset of subjective fevers and chills although she has not measured her temperature at home similar to previous with concern for possible bowel obstruction prompting ED return for assessment. #1. Acute Crohn's Flare/colitis with associated ileus versus SBO: Will admit to [facility], maintain on IVFs, if intractable nausea and emesis or abdominal pain/distention will place NGT to suction but otherwise upon admit will temporarily hold, strict I&Os, IV pain/anti-emetics PRN, serial KUB as needed to monitor bowel function, PPI IV, maintain NPO on bowel rest, will maintain on on IV zosyn, will maintain on methylprednisone 60 mg IV every 12 hours, will consult both Dr. Rousseau GI and Dr. Hilario General surgery who have both evaluated patient prior and are familiar with her. #2. Hypertension: Will continue patient on propranolol regimen, IV PRN hydralazine. #3. Hypothyroidism: We will continue patient home levothyroxine regimen. #4. Anxiety and depression: We will continue patient home sertraline. #5. Morbid Obesity: Weight loss and lifestyle changes encouraged. #6. DVT prophylaxis: SCDs. Charges/Coding Visit Charges Inpatient E&M: 36929 Init Hosp L2
[2023-11-05] MEDS: 0.9% Normal Saline (1000mL) 1,000 ML 100 ML IV (02:50)
[2023-11-05 05:08] LABS: Absolute Lymphocyte Count 1.29 X10^3/uL (0.83-4.51); Absolute Neutrophil Count 5.6 X10^3/uL (2.0-7.7); Basophil# 0.02 X10^3/uL; Basophil% 0.3 % (0-1); Hematocrit 38.5 % (37-47); Hemoglobin 12.1 g/dL (12.0-15.0); Lymphocyte # 1.29 X10^3/ul (0.83-4.51); Lymphocyte % 18.2 % (19-41); Mean Corp Hgb Conc 31.4 g/dL (32-36); Mean Corpuscular Volume 92.3 fL (81-99); Mean Platelet Vol. 9.1 fl (6.2-12.0); Monocyte# 0.13 X10^3/uL; Monocyte% 1.8 % (0-10); NRBC Flagged by Analyzer 0 % (0-5); Neutrophil # 5.63 X10^3/uL (2.7-7.7); Neutrophil % 79.6 % (47-70); Platelet Count 481 K/mm3 (150-450); RBC Distribution Width CV 14.9 % (11.6-14.6); RBC Distribution Width SD 50.8 fl (35.1-43.9); Red Blood Count 4.17 M/mm3 (4.2-5.4); White Blood Count 7.1 K/mm3 (4.4-11.0)
[2023-11-05 05:53] LABS: ALB/GLOB Ratio 0.5 RATIO (0.9-2.4); AST(SGOT) 15 U/L (15-37); Alanine Aminotransfer ALT/SGPT 15 U/L (13-56); Albumin, Serum 2.3 g/dL (3.2-5.0); Alkaline Phosphatase 63 U/L (45-117); Anion Gap 9 (5-15); BUN 8 mg/dL (7-18); BUN/Creat Ratio 10.8 RATIO (10-20); Calcium,Total 8.3 mg/dL (8.5-10.1); Chloride 108 mmol/L (98-107); Creatinine, Serum 0.74 mg/dL (0.55-1.02); EST Glomerular Filtration Rate 91 mL/min (>60); Est Glom Filt Rate - Afr Amer 110 mL/min (>60); Globulin 4.6 g/dL (2.2-4.2); Glucose 155 mg/dL (74-106); Potassium 3.8 mmol/L (3.5-5.1); Protein, Total 6.9 g/dL (6.4-8.2); Sodium Level 137 mmol/L (136-145)
--- NOTE | 2023-11-05 05:55 | RAD_ITS ---
INDICATION: ileus versus small bowel obstruction EXAMINATION/TECHNIQUE: X-RAY - XR Abdomen 1 View COMPARISON: CT dated November 04, 2023 FINDINGS: BOWEL GAS PATTERN: There is a paucity of bowel gas. No bowel or stomach distention. FREE AIR: Not assessed on a single supine view. CALCIFICATIONS: No abnormal calcifications observed. LOWER CHEST: No acute pathology. BONES AND SOFT TISSUES: No acute pathology. There is contrast visualized within the collecting systems and urinary bladder. RAD/Abdomen Single View (Portable) IMPRESSION: Possibly of bowel gas, cannot exclude underlying dilated fluid-filled loops of bowel. Electronically Signed: Kandy Garcia MD at 8:12 EDT ,
--- NOTE | 2023-11-05 08:40 | EX.PCM.CON.S ---
Assessment & Plan Assessment/Plan (1) Ileus: (2) Crohn's disease: PLAN: Plan Reviewed CT abdomen pelvis agree with the thickening of the ileum likely this is due to a Crohn's flare. Discussed with patient would plan for just conservative management here if she did need surgery would refer her to a tertiary center. Patient's pain is improving on the Zosyn as well as steroids. Will continue to follow. Yesiac Hilario M.D. Pager: [phone] [facility] [address] [place] [address], Outpatient [place], [address] [place] [address] Office: [phone] HPI Consult Data Date of Consult: 11/05/23 HPI Narrative HPI Narrative: JOHN DENSON, is a 43 F who presents to the ER due to abdominal pain nausea and vomiting. Patient does have history of Crohn's disease. Patient is seeing Dr. Rousseua and just had her third infusion of Skyrizi. Patient stated yesterday around 1 PM pain started to get worse but it started little bit earlier. Patient did have nausea and vomiting. Patient came to the ER CT abdomen pelvis showed some thickening of the ileum as well as some dilated small bowel loops. Patient did have a small bowel movement yesterday about 5 PM normally has looser bowel movements daily. Patient currently denies any flatus does state that her abdominal pain is improved it normally comes in waves was 10 /10 when she came to the ER now currently her 2-3/10 denies any flatus. Patient's pain was more in the right lower quadrant currently more in the mid abdomen. [facility] Medical History Anxiety GERD (gastroesophageal reflux disease) History of small bowel obstruction Obesity Anxiety and depression Crohn disease Hypothyroidism Hypertension Home Medications ?Medication ?Instructions ?Recorded ?Last Taken ?Type cholecalciferol (vitamin D3) 125 5,000 unit PO DAILY 10/24/18 02/07/23 06:30 History mcg (5,000 unit) capsule desogestrel-ethinyl estradiol 0.1 1 tab PO DAILY 10/24/18 02/07/23 06:30 History mg/0.125 mg/0.15 mg-25 mcg tablet (Velivet Triphasic Regimen (28)) levothyroxine 175 mcg tablet 175 mcg PO DAILY thyroid 10/24/18 02/07/23 06:30 History propranolol 40 mg tablet 40 mg PO BID 10/24/18 02/07/23 06:30 History sertraline 50 mg tablet 50 mg PO DAILY 10/24/18 02/07/23 06:30 History vitamin B complex (B 1 tab PO DAILY 02/07/23 02/07/23 06:30 History Complex-Vitamin B12 tablet) risankizumab-rzaa 60 mg/mL 600 mg (10 mL) .Route .COMPLEX #10 08/23/23 Unknown Rx intravenous solution (Skyrizi) mL risankizumab-rzaa 360 mg/2.4 mL 360 mg (2.4 mL) subcut Q8W #2.4 mL 09/12/23 Unknown Rx (150 mg/mL) subcut wearable injector (Skyrizi) levothyroxine 200 mcg tablet 200 mcg PO DAILY thyroid 11/04/23 Unknown History Allergy/AdvReac Type Severity Reaction Status Date / Time No Known Allergies Allergy Verified 11/04/23 21:26 Family History (Updated 11/05/23 @ 02:[address] Aure Hernandez MD) Mother CAD (coronary artery disease) Heart disease Hypertension Myocardial infarction Family History other Surgical History History of dental surgery Social History household members: spouse Smoking Status: Never smoker alcohol intake: never substance use type: does not use ROS Constitutional Constitutional: Reports anorexia; Denies fever(s) Eyes Eyes: Denies blurry vision ENT HEENT: Denies dysphagia Cardiovascular Cardiovascular: Denies chest pain Respiratory/Chest Respiratory/Chest: Denies productive cough Gastrointestinal Gastrointestinal: Reports abdominal pain, constipation, nausea and vomiting; Denies coffee ground emesis Genitourinary Genitourinary: Denies dysuria Musculoskeletal Musculoskeletal: Denies joint swelling Integumentary Integumentary: Denies jaundice Neurologic Neurologic: Denies focal weakness Psychiatric Psychiatric: Denies anxiety Endocrine Endocrinology: Denies palpitations Hematologic/Lymphatic Hematologic/Lymphatic: Denies easy bleeding Physical Exam Const alert, oriented x3 and no apparent distress HEENT normocephalic and head/scalp atraumatic Resp normal respiratory effort Cardio regular rate GI soft to palpation; Negative for non-distended Palpation: tender other (Mid abdomen, no peritoneal signs); Negative for guarding Extremity no clubbing, cyanosis or edema Neuro CN's II-XII intact bilaterally Psych mental status grossly normal Lab / Micro Data 11/05/23 04:25 11/05/23 04:25 Labs: Laboratory Results - last 24 hr 11/04/23 22:00: WBC 11.8 H, RBC 4.83, Hgb 14.2, Hct 43.7, MCV 90.5, MCH 29.4, MCHC 32.5, RDW Std Deviation 49.4 H, RDW Coeff of Brandan 14.8 H, Plt Count 605 H, MPV 9.1, Immature Gran % (Auto) 0.300, Neut % (Auto) 78.4 H, Lymph % (Auto) 16.6 L, [place] % (Auto) 3.6, Eos % (Auto) 0.8, Baso % (Auto) 0.3, Absolute Neuts (auto) 9.3 H, Absolute Lymphs (auto) 1.96, Nucleated RBC % 0, Sodium 134 L, Potassium 4.4, Chloride 102, Carbon Dioxide 19.0 L, Anion Gap 13, BUN 8, Creatinine 0.84, Estim Creat Clear Calc 103.96, Est GFR (MDRD) Af Amer 95, Est GFR (MDRD) Non-Af 78, BUN/Creatinine Ratio 9.5 L, Glucose 172 H, Calcium 9.6, Total Bilirubin 0.50, Direct Bilirubin 0.08, AST 28, ALT 19, Alkaline Phosphatase 75, Total Protein 8.3 H, Albumin 2.7 L, Globulin 5.6 H, Lipase 36, Serum , Qual NEGATIVE 11/04/23 23:20: Urine Color Yellow, Urine Clarity Clear, Urine pH 5.0, Ur Specific [place] 1.025, Urine Protein 30 H, Urine Glucose (UA) Normal, Urine Ketones 150 A*, Urine Occult Blood 50 H, Urine Nitrite Negative, Urine Bilirubin 1 H, Urine Urobilinogen Normal, Ur Leukocyte Esterase Negative 11/05/23 04:25: WBC 7.1, RBC 4.17 L, Hgb 12.1, Hct 38.5, MCV 92.3, MCH 29.0, MCHC 31.4 L, RDW Std Deviation 50.8 H, RDW Coeff of Brandan 14.9 H, Plt Count 481 H, MPV 9.1, Immature Gran % (Auto) 0.100, Neut % (Auto) 79.6 H, Lymph % (Auto) 18.2 L, [place] % (Auto) 1.8, Eos % (Auto) 0.0, Baso % (Auto) 0.3, Absolute Neuts (auto) 5.6, Absolute Lymphs (auto) 1.29, Nucleated RBC % 0, Sodium 137, Potassium 3.8, Chloride 108 H, Carbon Dioxide 20.0 L, Anion Gap 9, BUN 8, Creatinine 0.74, Estim Creat Clear Calc 118.20, Est GFR (MDRD) Af Amer 110, Est GFR (MDRD) Non-Af 91, BUN/Creatinine Ratio 10.8, Glucose 155 H, Calcium 8.3 L, Total Bilirubin 0.40, AST 15, ALT 15, Alkaline Phosphatase 63, Total Protein 6.9, Albumin 2.3 L, Globulin 4.6 H, Albumin/Globulin Ratio 0.5 L Imaging Radiology Impression Abdomen/Pelvis CT 11/04/23 21:35 IMPRESSION: Numerous dilated small bowel loops containing air-fluid levels with associated adjacent mesenteric fat stranding, ileus versus bowel obstruction. Transition point at the terminal ileum where there is short segment of marked wall thickening, consistent with enteritis. Electronically Signed: Roni Velasquez MD at 1:01 EDT , KUB X-Ray 11/05/23 05:55 IMPRESSION: Possibly of bowel gas, cannot exclude underlying dilated fluid-filled loops of bowel. Electronically Signed: Kandy Garcia MD at 8:12 EDT , Charges/Coding Visit Charges Inpatient E&M: 34687 Init Hosp L3
[2023-11-05] MEDS: Acetaminophen 325 MG Tablet 650 MG PO (09:51)
[2023-11-05] MEDS: Propranolol 40 MG Tablet PO (09:52)
[2023-11-05] MEDS: Sertraline 50 MG Tablet PO (09:52)
[2023-11-05] MEDS: 0.9% Saline Lock 10 ML Syringe IV (09:57)
--- NOTE | 2023-11-05 12:55 | PCM.HOSP.N ---
Hospitalist Note Patient admitted early this morning for suspected Crohn's flare. Saw patient at bedside midmorning, significant other present. Patient was sitting up fairly comfortably in bed, conversing normally, in no acute distress. Stated that she felt moderately better now than overnight. She denies any episodes of vomiting or diarrhea since yesterday evening. She is actually asking when she will be able to go home despite just being admitted. She denies any fevers or chills. States her abdominal pain is moderately improved from overnight. No other acute concerns at this time. On review of Dr. Hilario's note, noted that thickening of the ileum on CT abdomen pelvis is likely due to a Crohn's flare. Plan is for conservative management for now and if surgery would be needed, patient would need to be referred to a tertiary center. Patient follows with Dr. Rousseau in the outpatient setting, just had her third infusion of Skyrizi. Dr. Rousseau is consulted but likely will not be able to see the patient til tomorrow. Patient is currently being treated with IV Solu-Medrol 60 mg twice daily and IV Zosyn. She is also n.p.o. for now. Will plan to keep n.p.o. and on current IV medications till tomorrow. Full progress note to follow tomorrow.
--- NOTE | 2023-11-05 14:35 | DCINST_ITS ---
Discharge Instructions Diet Discharge Diet: Light diet - advance as tolerated Activity Discharge Activity: No Restrictions Follow Up Care Test Results: Test results from this visit will be discussed in further detail at your follow- up appointment, if applicable. Discharge Plan Admission Admit Date/Time: 11/05/23 01:31 Primary Reason for Your Visit: Crohn's flare Attending Provider: Boo Mendes Primary Care Provider: Johanna Saldivar Consulting Providers: Yesica Hilario; Aure Hernandez Discharge Orders/Prescriptions Prescriptions: New prednisone 20 mg tablet 40 mg PO DAILY 7 Days Qty: 14 0RF ciprofloxacin HCl 500 mg tablet 500 mg PO BID 5 Days Qty: 10 0RF metronidazole 500 mg tablet 500 mg PO TID 5 Days Qty: 15 0RF Continued levothyroxine 175 MCG tablet 175 mcg PO DAILY Patient Comments: 2 days a week, monday and Velivet Triphasic Regimen (28) 1 EACH tablet 1 tab PO DAILY Patient Comments: TAKE 1 TABLET BY MOUTH EVERY DAY propranolol 40 MG tablet 40 mg PO BID sertraline 50 MG tablet 50 mg PO DAILY Patient Comments: TAKE 1 TABLET BY MOUTH EVERY DAY cholecalciferol (vitamin D3) 5,000 UNIT capsule 5,000 unit PO DAILY vitamin B complex [B Complex-Vitamin B12] Tablet 1 tab PO DAILY levothyroxine 200 mcg tablet 200 mcg PO DAILY Rx Instructions: 5 days a week mon, mon, monday, mon, monday Skyrizi 60 mg/mL solution 600 mg .ROUTE .COMPLEX Qty: 10 0RF Rx Instructions: Infuse 600mg on week zero, four and eight Skyrizi 360 mg/2.4 mL (150 mg/mL) wearable injector 360 mg subcut Q8W Qty: 2.4 6RF Rx Instructions: Approved 08.25.23-08.23.24 authorization number: [id number] Referrals / Follow Up: Johanna Saldivar MD [Primary Care Provider] - Disposition Disposition (needs filled in before D/C Order can be placed): Home, Self Care
--- NOTE | 2023-11-05 14:40 | PCM.DC.SUM ---
Providers Date of Admission: 11/05/23 Date of Discharge: 11/05/23 Primary Care Physician: Dr. Johanna Saldivar MD Consultations 11/05/23 02:10 Consult: Gastroenterology Routine Consulting Provider: [facility] Reason for Consult: ? ileus vs SBO, setting of crohn's flare EMERGENT Consult: No Notified: Yes Date Notified: 11/05/23 Time Notified: 01:33 Method of Notification: Text Consult: General Surgery Routine Consulting Provider: Yesica Hilario Reason for Consult: ? ileus vs SBO, setting of crohn's flare EMERGENT Consult: No Notified: Yes Date Notified: 11/05/23 Time Notified: 01:33 Method of Notification: Text Reason For Visit: CROH[place]ARE, ? ILEUS VS SBO Diagnosis Discharge Diagnosis (1) Ileus: Status: Acute Code(s): K56.7 - Ileus, unspecified (2) Crohn's disease: Status: Acute Code(s): K50.90 - Crohn's disease, unspecified, without complications Medications at Discharge Home Medications cholecalciferol (vitamin D3) 125 mcg (5,000 unit) capsule 5,000 unit PO DAILY 10/24/18 desogestrel-ethinyl estradiol 0.1 mg/0.125 mg/0.15 mg-25 mcg tablet (Velivet Triphasic Regimen (28)) 1 tab PO DAILY 10/24/18 levothyroxine 175 mcg tablet 175 mcg PO DAILY thyroid 10/24/18 propranolol 40 mg tablet 40 mg PO BID 10/24/18 sertraline 50 mg tablet 50 mg PO DAILY 10/24/18 vitamin B complex (B Complex-Vitamin B12 tablet) 1 tab PO DAILY 02/07/23 risankizumab-rzaa 60 mg/mL intravenous solution (Skyrizi) 600 mg (10 mL) .Route .COMPLEX #10 mL 08/23/23 risankizumab-rzaa 360 mg/2.4 mL (150 mg/mL) subcut wearable injector (Skyrizi) 360 mg (2.4 mL) subcut Q8W #2.4 mL 09/12/23 levothyroxine 200 mcg tablet 200 mcg PO DAILY thyroid 11/04/23 ciprofloxacin HCl 500 mg tablet 500 mg PO BID 5 days #10 tabs 11/05/23 metronidazole 500 mg tablet 500 mg PO TID 5 days #15 tabs 11/05/23 prednisone 20 mg tablet 40 mg (2 x 20 mg) PO DAILY 7 days #14 tabs 11/05/23 Hospital Course Operations None Procedures - (CT abdomen pelvis with IV contrast, KUB) Summary of Care Provided Minutes Spent on Discharge: 35 Hospital Course: Patient is a 43-year-old female who presented to [facility] ED on 11/04/2023 with concern for Crohn's flare. Short hospital course as noted below. Discharged home in stable condition on 11/04. 1. Mild Crohn's flare with associated ileus, improving Presented with abdominal pain and episodes of nausea/vomiting. CT abdomen pelvis with IV contrast showed short segment of marked wall thickening of terminal ileum consistent with enteritis, as well as numerous dilated small bowel loops with adjacent mesenteric fat stranding concerning for ileus versus SBO. KUB on morning of 11/04 with similar findings. Lab workup benign and hemodynamically stable. Notably patient follows with Dr. Rousseau in the office, just completed third infusion of Skyrizi recently. Last Crohn's flare was about 1 year ago. ? General surgery evaluated on 11/04, noted that patient had small bowel movement around 5 PM on 11/03 and was passing gas during hospitalization, no concern for SBO. CT findings consistent with mild Crohn's flare. Patient transition to full liquid diet on 11/04 and tolerated this well. Plan was to have Dr. Rousseau evaluate her on 11/05 but patient wished to be discharged on 11/04. Treated with IV Solu-Medrol 60 mg twice daily and IV Zosyn while inpatient; discharged on p.o. prednisone 40 mg daily, ciprofloxacin twice daily and Flagyl 3 times daily with plan for Dr. Rousseau to call patient for follow up and any medication changes at that time. Chronic medical conditions: ? Hypertension: Continue home propranolol. ? Hypothyroidism: Continue home Synthroid. ? Anxiety/depression: Stable. Continue home sertraline. ? Morbid obesity: BMI 41 on admit. Encouraged lifestyle modifications. Complicates hospital course, care and prognosis. Total clinical time spent by myself addressing the patient's medical issues, reviewing all the data, and collaborating with patient's care team: 35 minutes. Physical Exam Const alert, oriented x3 and no apparent distress Constitutional Narrative: Pleasant middle-age female, obese, sitting up comfortably in bed, conversing normally, no acute distress. General Appearance: cooperative and comfortable HEENT normocephalic, head/scalp atraumatic, hearing grossly normal bilaterally, nasal mucous membranes and turbinates normal and moist oral mucous membranes Eyes PERRL, EOMs intact bilaterally and conjunctivae normal Neck full ROM Chest inspection of chest normal Resp normal respiratory effort, normal air movement, no use of accessory muscles and clear to auscultation bilaterally Cardio regular rate, regular rhythm, no murmurs and peripheral pulses 2+ throughout GI GI Narrative: Mild tenderness to palpation of right lower quadrant, otherwise soft and nondistended. Back/Spine normal ROM Extremity normal to inspection, full ROM and no pedal edema Skin no rashes or lesions noted Neuro moves all extremities and no focal motor deficits Speech: speech normal Psych mental status grossly normal Weight / BMI Weight Weight: 108.9 kg Body Mass Index (BMI) 41.0 ABG / Lab / Microbiology Data 11/05/23 04:25 11/05/23 04:25 Laboratory: Laboratory Results - last 24 hr 11/04/23 22:00: WBC 11.8 H, RBC 4.83, Hgb 14.2, Hct 43.7, MCV 90.5, MCH 29.4, MCHC 32.5, RDW Std Deviation 49.4 H, RDW Coeff of Brandan 14.8 H, Plt Count 605 H, MPV 9.1, Immature Gran % (Auto) 0.300, Neut % (Auto) 78.4 H, Lymph % (Auto) 16.6 L, [place] % (Auto) 3.6, Eos % (Auto) 0.8, Baso % (Auto) 0.3, Absolute Neuts (auto) 9.3 H, Absolute Lymphs (auto) 1.96, Nucleated RBC % 0, Sodium 134 L, Potassium 4.4, Chloride 102, Carbon Dioxide 19.0 L, Anion Gap 13, BUN 8, Creatinine 0.84, Estim Creat Clear Calc 103.96, Est GFR (MDRD) Af Amer 95, Est GFR (MDRD) Non-Af 78, BUN/Creatinine Ratio 9.5 L, Glucose 172 H, Calcium 9.6, Total Bilirubin 0.50, Direct Bilirubin 0.08, AST 28, ALT 19, Alkaline Phosphatase 75, Total Protein 8.3 H, Albumin 2.7 L, Globulin 5.6 H, Lipase 36, Serum , Qual NEGATIVE 11/04/23 23:20: Urine Color Yellow, Urine Clarity Clear, Urine pH 5.0, Ur Specific [place] 1.025, Urine Protein 30 H, Urine Glucose (UA) Normal, Urine Ketones 150 A*, Urine Occult Blood 50 H, Urine Nitrite Negative, Urine Bilirubin 1 H, Urine Urobilinogen Normal, Ur Leukocyte Esterase Negative 11/05/23 04:25: WBC 7.1, RBC 4.17 L, Hgb 12.1, Hct 38.5, MCV 92.3, MCH 29.0, MCHC 31.4 L, RDW Std Deviation 50.8 H, RDW Coeff of Brandan 14.9 H, Plt Count 481 H, MPV 9.1, Immature Gran % (Auto) 0.100, Neut % (Auto) 79.6 H, Lymph % (Auto) 18.2 L, [place] % (Auto) 1.8, Eos % (Auto) 0.0, Baso % (Auto) 0.3, Absolute Neuts (auto) 5.6, Absolute Lymphs (auto) 1.29, Nucleated RBC % 0, Sodium 137, Potassium 3.8, Chloride 108 H, Carbon Dioxide 20.0 L, Anion Gap 9, BUN 8, Creatinine 0.74, Estim Creat Clear Calc 118.20, Est GFR (MDRD) Af Amer 110, Est GFR (MDRD) Non-Af 91, BUN/Creatinine Ratio 10.8, Glucose 155 H, Calcium 8.3 L, Total Bilirubin 0.40, AST 15, ALT 15, Alkaline Phosphatase 63, Total Protein 6.9, Albumin 2.3 L, Globulin 4.6 H, Albumin/Globulin Ratio 0.5 L Radiography Diagnostic Testing: Radiology Impression Abdomen/Pelvis CT 11/04/23 21:35 IMPRESSION: Numerous dilated small bowel loops containing air-fluid levels with associated adjacent mesenteric fat stranding, ileus versus bowel obstruction. Transition point at the terminal ileum where there is short segment of marked wall thickening, consistent with enteritis. Electronically Signed: Roni Velasquez MD at 1:01 EDT , KUB X-Ray 11/05/23 05:55 IMPRESSION: Possibly of bowel gas, cannot exclude underlying dilated fluid-filled loops of bowel. Electronically Signed: Kandy Garcia MD at 8:12 EDT , D/C Instructions Discharge Diet: Light diet - advance as tolerated Meaningful Use Info Meaningful Use Meaningful Use Diagnoses (Choose all that apply): None applicable Ischemic Stroke Statin Dosing Therapy Reference: STATIN DOSE THERAPY REFERENCE: * Patients > 75 years receive moderate or high dose statin therapy. * Patients 75 years or YOUNGER should receive HIGH intensity statin dose unless contraindicated. You will be required to document reason for non-treatment if statin daily dose does not meet guidelines. HIGH DOSE STATIN THERAPY DAILY Atorvastatin > than or = to 40 mg Rosuvastatin > than or = to 20 mg Amlodipine + Atorvastatin > than or = to 2.5/40 mg Ezetimibe + Simvastatin 10/80 mg Simvastatin 80mg Discharge Plan Admission Admit Date/Time: 11/05/23 01:31 Primary Reason for Your Visit: Crohn's flare Attending Provider: Boo Mendes Primary Care Provider: Johanna Saldivar Consulting Providers: Yesica Hilario; Aure Hernandez Discharge Orders/Prescriptions Prescriptions: New prednisone 20 mg tablet 40 mg PO DAILY 7 Days Qty: 14 0RF ciprofloxacin HCl 500 mg tablet 500 mg PO BID 5 Days Qty: 10 0RF metronidazole 500 mg tablet 500 mg PO TID 5 Days Qty: 15 0RF Continued levothyroxine 175 MCG tablet 175 mcg PO DAILY Patient Comments: 2 days a week, monday and Velivet Triphasic Regimen (28) 1 EACH tablet 1 tab PO DAILY Patient Comments: TAKE 1 TABLET BY MOUTH EVERY DAY propranolol 40 MG tablet 40 mg PO BID sertraline 50 MG tablet 50 mg PO DAILY Patient Comments: TAKE 1 TABLET BY MOUTH EVERY DAY cholecalciferol (vitamin D3) 5,000 UNIT capsule 5,000 unit PO DAILY vitamin B complex [B Complex-Vitamin B12] Tablet 1 tab PO DAILY levothyroxine 200 mcg tablet 200 mcg PO DAILY Rx Instructions: 5 days a week mon, mon, monday, monday Skyrizi 60 mg/mL solution 600 mg .ROUTE .COMPLEX Qty: 10 0RF Rx Instructions: Infuse 600mg on week zero, four and eight Skyrizi 360 mg/2.4 mL (150 mg/mL) wearable injector 360 mg subcut Q8W Qty: 2.4 6RF Rx Instructions: Approved 08.25.23-08.23.24 authorization number: [id number] Referrals / Follow Up: Johanna Saldivar MD [Primary Care Provider] - Disposition Disposition (needs filled in before D/C Order can be placed): Home, Self Care Charges/Coding Visit Charges Inpatient E&M: 22245 Disch Hosp >30min
== END 2023-11-05 15:06 | disposition home or self-care (01) | DRG 386 ==
LOC: ED 11-05 01:15 → MS3 11-05 01:44
PROVIDERS: Admitting Provider Family Medicine; Emergency Provider Emergency Medicine; PCP Family Medicine; Visit Provider Hospitalist
DX: K50.90 Crohn's disease, unspecified, without complications (principal); K56.7 Ileus, unspecified; Z68.41 Body mass index [BMI] 40.0-44.9, adult; E66.01 Morbid (severe) obesity due to excess calories; E03.9 Hypothyroidism, unspecified; I10 Essential (primary) hypertension; F41.8 Other specified anxiety disorders; Z79.899 Other long term (current) drug therapy
CPT/HCPCS: 36415; 74018; 74177; 80048; 80053; 80076; 81001; 83690; 84703; 85025; 94668; 99284; J7030; Q9967; A4216; J2405

== ENCOUNTER → 2023-12-22 | Outpatient (CLI) | payer OTHER, SELFPAY ==
[2023-12-22 17:59] LABS: Erythrocyte Sedimentation Rate 64 mm/hr (0-30)
[2023-12-29 00:07] LABS: Calprotectin, Stool 86 ug/g (0-120)
== END | disposition home or self-care (01) ==
PROVIDERS: PCP Family Medicine; Referring Provider Internal Medicine Gastroenterology; Visit Provider Internal Medicine Gastroenterology
DX: K50.90 Crohn's disease, unspecified, without complications (principal)
CPT/HCPCS: 36415; 83630; 83993; 85652; 86140

== ENCOUNTER 2024-07-03 06:58 | Day surgery (SDC) | payer BC, SELFPAY ==
[2024-07-03] VITALS (8 sets, daily range): BP systolic 127–139; BP diastolic 64–85; PULSE 77–85; RESP 16–18; TEMP 36.1–36.6; O2SAT 95–98; BMI 40.1
[2024-07-03 07:25] LABS: Internal QC Validated? YES +Cl - CLEAR BKGD; Pregnancy, Urine Negative Negative
--- NOTE | 2024-07-03 07:32 | PCM.PRE.AN2 ---
ASA Classification* ASA Classification ASA Classification: 2 Assessment & Plan Anesthesia* Anesthesia Assessment Anesthesia Assessment: Discussed sedation and/or anesthesia options, risks, benefits, and alternatives with patient/parents/legal guardian/POA. Questions invited. The patient/parents/legal guardian/POA seems to understand and agrees to proceed with anesthesia plan. Reviewed the physical assessment, medical history, allergy history and patient home medications list prior to surgery/procedure/anesthetic and documented any changes. Performed airway and anesthesia risk assessments. Anesthesia Type Anesthesia Type: MAC History Source History Obtained from:: Patient and Chart Anesthesia Focused Assessment* Temperature: 97.8 F Pulse Rate: 77 Blood Pressure: 127/64 Respiratory Rate: 18 Pulse Ox: 97 Oxygen Delivery Method: Room Air Airway Assessment Mouth opens: >3 cm Mallampati Score: II Teeth Condition: Intact Neck Range of motion (ROM): Full ROM Focused Labs Anesthesia Preop lab: CBC WBC 7.1 K/mm3 (4.4-11.0) 11/05/23 04:25 RBC 4.17 M/mm3 (4.2-5.4) L 11/05/23 04:25 Hgb 12.1 g/dL (12.0-15.0) 11/05/23 04:25 Hct 38.5 % (37-47) 11/05/23 04:25 Plt Count 481 K/mm3 (150-450) H 11/05/23 04:25 CHEMISTRY Potassium 3.8 mmol/L (3.5-5.1) 11/05/23 04:25 Sodium 137 mmol/L (136-145) 11/05/23 04:25 BUN 8 mg/dL (7-18) 11/05/23 04:25 Creatinine 0.74 mg/dL (0.55-1.02) 11/05/23 04:25 Glucose 155 mg/dL (74-106) H 11/05/23 04:25 TSH 3.51 uIU/mL (0.358-3.74) 06/18/18 12:14 COAG PT 12.9 SECONDS (11.7-14.9) 02/07/23 16:35 Urine Test Negative Negative 07/03/24 07:05 Pre-Assessment Diagnosis/Proposed Procedure Planned Operative Procedure(s): CSCOPE Anesthesia History Anesthesia History - teradata solution architect: Anesthesia History - teradata solution architect Hx Hospitalization Yes: SBO 07/02/24 09:29 Any Problems With Anesthesia No 07/02/24 09:29 Cholinesterase deficiency No 07/02/24 09:29 You/Your Family Experience No 07/02/24 09:29 fever (hyperthermia) with Relationship Recent Exposure to Contagious No 07/03/24 07:23 Disease Does patient have nerve No 07/02/24 09:29 stimulator Patient instructed to have device shut off --Does patient have Pacemaker No 07/03/24 07:23 or ICD? When Was Last Pacemaker Check QUESTION #4 FULL TEXT: You/Your Family Experience fever (hyperthermia) with Anesthesia Last Oral Intake Last Oral intake: Last Oral Intake NPO since 06:00 07/03/24 07:23 Meds taken in AM with sips of water? Meds patient instructed to take am of surgery PONV PONV - teradata solution architect: PONV - teradata solution architect Female Yes 07/02/24 09:29 HX of Motion Sickness No 07/02/24 09:29 HX of N/V After Surgery No 07/02/24 09:29 Non-Smoker Yes 07/02/24 09:29 Duration of Surgery greater No 07/02/24 09:29 than 60 minutes Number of Risk Factors 2 07/02/24 09:29 PONV Score Moderate Risk 07/02/24 09:29 Height & Weight Height & Weight: Anesthesia: Height & Weight Height 5 ft 4 in 07/03/24 07:23 Weight: 106 kg 07/03/24 07:23 Body Mass Index (BMI) 40.1 07/03/24 07:23 Respiratory Assessment Respiratory Assessment - teradata solution architect: Respiratory Tract Infection Hx - teradata solution architect Hx Respiratory Tract Infection No 07/02/24 09:29 STOP Sleep Apnea STOP Sleep Apnea - teradata solution architect: STOP Sleep Apnea - teradata solution architect Hx Hypertension No 07/02/24 09:29 Hx Sleep Apnea No 07/02/24 09:29 CPAP BIPAP Do you snore loudly (louder Yes 07/02/24 09:29 than talking or can be heard Do you often feel tired/ Yes 07/02/24 09:29 fatigued/ sleepy during daytime? Has anyone observed you stop No 07/02/24 09:29 breathing during sleep? STOP Results Positive 07/02/24 09:29 QUESTION #5 FULL TEXT : Do you snore loudly (louder than talking or can be heard through closed doors)? Tobacco Use History Tobacco Use History - teradata solution architect: Tobacco Use History - teradata solution architect Tobacco Use Smoking Status Never smoker 07/02/24 09:29 Hx Tobacco Use No 07/02/24 09:29 Years Smoking Packs Smoked per Day Smoking Cessation Date was within the last 15 years Hx Smoking Cessation Date Hx Smoking Cessation Counseling Hematologic Medial History Hematologic Hx - teradata solution architect: Hematologic Medical Hx - blind escort Hx of Blood Transfusion Yes 07/02/24 09:29 Hx of Transfusion in last 3 No 07/02/24 09:29 Months Date of Last Transfusion (if within last 3 months) Ever experience any problems No 07/02/24 09:29 with transfusion(s)? Specify any problems Hx of Preganancy in last 3 No 07/02/24 09:29 Months Nurse Filling Out Transfusion DSCHRIBER 07/02/24 09:29 & Questions: Date: 07/02/24 07/02/24 09:29 Time: 09:31 07/02/24 09:29 Patient unable to answer at this time (ie. confused, unrespo /Reproduction History /Reproductive History - teradata solution architect: /Reproductive Hx- teradata solution architect Hx Now No 07/02/24 09:29 Gestational Age (in weeks): EDC: Hx Hx Para Hx Section SAB No 07/02/24 09:29 [facility] Medical History Wears glasses Diabetes Anemia Dietary restriction History of IBS Heartburn Non-smoker History of edema History of echocardiogram History of small bowel obstruction Obesity Anxiety and depression Crohn disease Hypothyroidism Home Medications ?Medication ?Instructions ?Recorded ?Last Taken ?Type cholecalciferol (vitamin D3) 125 5,000 unit PO DAILY 10/24/18 02/07/23 06:30 History mcg (5,000 unit) capsule desogestrel-ethinyl estradiol 0.1 1 tab PO DAILY 10/24/18 02/07/23 06:30 History mg/0.125 mg/0.15 mg-25 mcg tablet (Velivet Triphasic Regimen (28)) levothyroxine 175 mcg tablet 175 mcg PO .CARLA thyroid 10/24/18 02/07/23 06:30 History propranolol 40 mg tablet 40 mg PO BID 10/24/18 07/03/24 06:00 History sertraline 50 mg tablet 50 mg PO DAILY 10/24/18 07/03/24 06:00 History vitamin B complex (B 1 tab PO DAILY 02/07/23 02/07/23 06:30 History Complex-Vitamin B12 tablet) risankizumab-rzaa 360 mg/2.4 mL 360 mg (2.4 mL) subcut Q8W #2.4 mL 09/12/23 Unknown Rx (150 mg/mL) subcut wearable injector (Skyrizi) levothyroxine 200 mcg tablet 200 mcg PO TUTH thyroid 11/04/23 07/03/24 06:00 History budesonide 3 mg 6 mg (2 x 3 mg) PO DAILY #180 ea 01/02/24 Unknown Rx capsule,delayed,extended release Allergy/AdvReac Type Severity Reaction Status Date / Time adhesive AdvReac Intermediate Itching Verified 07/03/24 07:21 Family History (Updated 11/05/23 @ 02:[address] Aure Hernandez MD) Mother CAD (coronary artery disease) Heart disease Hypertension Myocardial infarction Surgical History (Updated 07/02/24 @ 09:37 by Madison Evangelista) History of esophagogastroduodenoscopy (EGD) Hx of colonoscopy Hx of wisdom tooth extraction Social History household members: spouse Smoking Status: Never smoker alcohol intake: never substance use type: does not use Review of Systems (Anesthesia) ROS Narrative System reviewed and no additional complaints, except as documented.
--- NOTE | 2024-07-03 08:00 | COLBX_PTH ---
PATIENT: JOHN ANAND LOC: EN U#:[id number] AGE/SX: 44/F ROOM: RE07/03/[address]: Dr. Mir Rousseau DO : 1980 BED: DIS: 07/03/2024 SPEC #: [id number] RECD: 07/03/24 11:25 STATUS: ROBINA MARI #: [id number] JENNIFFER: 07/03/24 08:[address]: Mir Rousseau DEPT: SURGICAL PATHOLOGY RECD BY: Mila Alex ENTERED: 07/03/24 12:20 SP TYPE: COLON BX OTHR DR: Dr. Johanna Saldivar MD Tissues: Ileum, NOS Procedures: Surgery Specimen Level IV HEADER OPERATION: Colonoscopy biopsy PRE-OP DIAGNOSIS: Crohn's disease TISSUE SUBMITTED: Terminal ileum biopsy MICROSCOPIC DIAGNOSIS Terminal ileum, biopsy: Fragments of small intestinal and colonic mucosa with mild glandular distortion. Negative for active inflammation. See comment. SMITH. 07/04/2024 COMMENT Please make reference to previous specimen [id number] terminal ileum, biopsy with diagnosis of fragments of small intestinal mucosa with blunting of villi, mild architecture distortion and mild non-specific chronic inflammation. Negative for active inflammation and right colon, biopsy with diagnosis of fragments of colonic mucosa, no pathologic diagnosis. Correlation with clinical , endoscopic findings and appropriate follow up are necessary. MICROSCOPIC DESCRIPTION Slides are reviewed. GROSS DESCRIPTION Received in fixative is one container labeled with the patient's name and designated Terminal ileum biopsy. The specimen consists of multiple irregular fragments of light harley soft tissue that in aggregate measure 1.1 x 0.3 x 0.3 cm. The specimen is totally submitted in one cassette. GABRIEL 07/03/2024 TC:5 CPT:60655
--- NOTE | 2024-07-03 08:07 | HP.PCM_ITS ---
HPI - General General Date of Admission: 07/03/24 Date of Service: 07/03/24 Chief Complaint: crohns disease HPI Narrative JOHN DENSON, is a 44 F who presents today for endoscopic surveillance of Crohn's disease. [facility] hospitalization .10.25-02.08.23 presented to ER with N/V, abdominal pain. Dx acute Crohn's flare. PMH hypothyroidism, anxiety, depression, HTN, Crohn's. Previously seeing Dr. Ch and was on Stelara. MR enterography 04.13.23 acute Crohn's flare with questionable mild stricturing of distal/ terminal ileum. OV 4.24- Pt states she was dx with Crohn's around 2014. Was started on Stelara last year but stopped taking it due to cost. Has had 2 induction infusion of Skyrizi. Is feeling well. No abdominal pain, nausea or vomiting. States BM are unchanged. Has a BM after eating. Usually loose. Sees blood sometimes. Was told she may have IBS ontop of her IBD. abd/pelvis CT 6.1.24 Numerous dilated small bowel loops containing air-fluid levels with associated adjacent mesenteric fat stranding, ileus versus bowel obstruction. Transition point at the terminal ileum where there is short segment of marked wall thickening, consistent with enteritis. KUB 6.2.24 Possibly of bowel gas, cannot exclude underlying dilated fluid- filled loops of bowel. OV 7..24 pt reports that she is feeling well overall and denies GI symptoms of concern at this time. Pt reports regular bm; denies blood in the stool. Continues Skyrizi and Budesonide. OV 11.24 pt reports that she is feeling well overall and denies GI symptoms of concern at this time. Pt does note some rectal discomfort when she is having a bowel movement for the past few months, states it feels like raw skin. Continues Skyrizi and budesonide. ESR/CRP Calp/Lact Serum/ab 5..24 --/-- H237/ - --/-- 7..24 H64/H15.7 86 / - --/-- [facility] Medical History Wears glasses Diabetes Anemia Dietary restriction History of IBS Heartburn Non-smoker History of edema History of echocardiogram History of small bowel obstruction Obesity Anxiety and depression Crohn disease Hypothyroidism Home Medications ?Medication ?Instructions ?Recorded ?Last Taken ?Type cholecalciferol (vitamin D3) 125 5,000 unit PO DAILY 10/24/18 02/07/23 06:30 History mcg (5,000 unit) capsule desogestrel-ethinyl estradiol 0.1 1 tab PO DAILY 10/24/18 02/07/23 06:30 History mg/0.125 mg/0.15 mg-25 mcg tablet (Velivet Triphasic Regimen (28)) levothyroxine 175 mcg tablet 175 mcg PO .SUSAMOWEFR thyroid 10/24/18 02/07/23 06:30 History propranolol 40 mg tablet 40 mg PO BID 10/24/18 07/03/24 06:00 History sertraline 50 mg tablet 50 mg PO DAILY 10/24/18 07/03/24 06:00 History vitamin B complex (B 1 tab PO DAILY 02/07/23 02/07/23 06:30 History Complex-Vitamin B12 tablet) risankizumab-rzaa 360 mg/2.4 mL 360 mg (2.4 mL) subcut Q8W #2.4 mL 09/12/23 Unknown Rx (150 mg/mL) subcut wearable injector (Skyrizi) levothyroxine 200 mcg tablet 200 mcg PO TUT thyroid 11/04/23 07/03/24 06:00 History budesonide 3 mg 6 mg (2 x 3 mg) PO DAILY #180 ea 01/02/24 Unknown Rx capsule,delayed,extended release Allergy/AdvReac Type Severity Reaction Status Date / Time adhesive AdvReac Intermediate Itching Verified 07/03/24 07:21 Family History Mother CAD (coronary artery disease) Heart disease Hypertension Myocardial infarction Surgical History History of esophagogastroduodenoscopy (EGD) Hx of colonoscopy Hx of wisdom tooth extraction Social History household members: spouse Smoking Status: Never smoker alcohol intake: never substance use type: does not use ROS Constitutional Constitutional: Denies fatigue, fever(s), poor appetite, weight gain or weight loss Gastrointestinal Gastrointestinal: Denies belching, bloating, change in bowel habits, change in stool character, chewing difficulty, coffee ground emesis, constipation, cramping, diarrhea, dyspepsia, dysphagia, early satiety, excessive flatus, fecal incontinence, heartburn, hematemesis, hematochezia, hemorrhoids, loose stools, melena, nausea, odynophagia, rectal bleeding, tenesmus, vomiting or weight changes Vital Signs Vital Signs Vital Signs: 07/03/24 07:23 07/03/24 07:23 07/03/24 07:37 Temperature 97.8 F 97.8 F Temperature Source Temporal Pulse Rate 77 77 Respiratory Rate 18 18 Respiratory Pattern Normal Blood Pressure 127/64 H 127/64 H Blood Pressure Mean 85 Blood Pressure Source Monitor Blood Pressure Position Sitting Blood Pressure Location Left Arm Pulse Ox 97 97 Oxygen Delivery Method Room Air Room Air Weight Weight: 233 lb 11.04 oz Body Mass Index (BMI) 40.1 Physical Exam Const alert, oriented x3, no apparent distress and healthy appearing General Appearance: cooperative GI normal to inspection, nondistended, normoactive bowel sounds, soft to palpation, non-tender and non-distended Percussion: normal to percussion Rectal Exam: deferred Results Lab / Micro Data Labs: Laboratory Results - last 24 hr 07/03/24 07:05: Urine Test Negative Assessment & Plan Assessment/Plan (1) Crohn's disease: PLAN: Assessment and Plan Assessment and Plan (1) Crohn disease: Status: Inactive Qualifiers: Gastrointestinal tract location: small intestine Plan: The patient is a 42 y/o F w/ PMHx: Hypothyroidism, Anxiety and Depression, HTN, Crohn's disease who presents to the [facility] ED on 02/07/23 with history of onset at approximately 1 PM on day of presentation nausea and serial bouts of emesis with no diarrhea but severe crampy abdominal pain diffusely with subjective fever at home with last colonoscopy reportedly the year prior and no history of previous abdominal surgeries but given not improving prompted ED evaluation. Acute Sepsis secondary to (Tachycardic, Tachypneic, Elevated WBC, Elevated LA 3.3) secondary to Acute Crohn's Flare/colitis with associated partial SBO: Her partial small bowel obstruction resolved with conservative measures. She was started on steroids along with Cipro and Flagyl and transition to budesonide. We got her off of Stelara and she currently is taking Skyrizi. She is not having any side effects to the Skyrizi therapy. She has her postprandial diarrhea but besides that she has no signs or symptoms of active disease. She denies any tenesmus, bloating, abdominal pain, nausea, chest pain or shortness of breath. Overall she is in very good health. We will need her to get stool test so we can confirm an activity of disease.
--- NOTE | 2024-07-03 08:59 | PCM.POST.ANE ---
Anesthesia: Postop Eval I Current Vital Signs Temperature: 97 F Pulse Rate: 84 Blood Pressure: 131/85 Respiratory Rate: 16 Pulse Ox: 98 Oxygen Delivery Method: Nasal Cannula Oxygen Flow Rate (L/min): 3 Assessment Airway patent: Yes Spontaneous unlabored respirations: Yes Mental status: Awake and Calm nausea: No Vomiting: No Anesthesia Complication: No Fluid Hydration Crystalloid volume administer (ml): 60 Total IV fluid infused: 60 Progress Note Anesthesia document: Postop Eval 1 completed: Yes
--- NOTE | 2024-07-03 09:00 | OP.COLON_ITS ---
Patient Name: Fernanda Palencia Procedure Date: 07/03/2024 8:13 AM Date of : 1980 Age: 44 Procedure: Colonoscopy Indications: Crohn's disease of the small bowel and colon Providers: DO Nara Diaz MD: Johanna Saldivar Md Medicines: Monitored Anesthesia Care Patient Profile: This is a 44 year old female. Refer to note in patient chart for documentation of history and physical. Last Colonoscopy: within the past 3 years. Complications: No immediate complications. Procedure: Pre-Anesthesia Assessment: - Prior to the procedure, a History and Physical was performed, and patient medications and allergies were reviewed. The patient is competent. The risks and benefits of the procedure and the sedation options and risks were discussed with the patient. All questions were answered and informed consent was obtained. Patient identification and proposed procedure were verified by the physician in the pre-procedure area. Mental Status Examination: alert and oriented. Airway Examination: normal oropharyngeal airway and neck mobility. Respiratory Examination: clear to auscultation. CV Examination: normal. Prophylactic Antibiotics: The patient does not require prophylactic antibiotics. Prior Anticoagulants: The patient has taken no anticoagulant or antiplatelet agents except for NSAID medication. ASA Grade Assessment: II - A patient with mild systemic disease. After reviewing the risks and benefits, the patient was deemed in satisfactory condition to undergo the procedure. The anesthesia plan was to use monitored anesthesia care (MAC). Immediately prior to administration of medications, the patient was re-assessed for adequacy to receive sedatives. The heart rate, respiratory rate, oxygen saturations, blood pressure, adequacy of pulmonary ventilation, and response to care were monitored throughout the procedure. The physical status of the patient was re-assessed after the procedure. After I obtained informed consent, the scope was passed under direct vision. Throughout the procedure, the patient's blood pressure, pulse, and oxygen saturations were monitored continuously. The colonoscope was introduced through the anus and advanced to the terminal ileum. The colonoscopy was performed without difficulty. The patient tolerated the procedure well. The quality of the bowel preparation was adequate. The terminal ileum, ileocecal valve, appendiceal orifice, and rectum were photographed. Scope In: 8:23:09 AM Scope Withdrawal Time 0 hours 8 minutes 6 seconds Scope Out: 8:46:06 AM Total Procedure Duration Time 0 hours 22 minutes 57 seconds Findings: The perianal and digital rectal examinations were normal. A benign-appearing, intrinsic severe stenosis measuring 6 cm (in length) x 5 mm (inner diameter) was found in the sigmoid colon and was traversed. The terminal ileum and ileocecal valve contained a benign-appearing, intrinsic severe stenosis measuring 2 cm (in length) x 5 mm (inner diameter) that was non-traversed. Biopsies were taken with a cold forceps for histology. Verification of patient identification for the specimen was done. Estimated blood loss was minimal. Impression: - Stricture in the sigmoid colon. - Stricture in the terminal ileum and at the ileocecal valve. Biopsied. Recommendation: - Discharge patient to home. - Resume previous diet. - Continue present medications. - Await pathology results. - Repeat colonoscopy for surveillance based on pathology results. Procedure Code(s): --- Professional --- 66401, Colonoscopy, flexible; with biopsy, single or multiple CPT copyright 2021 [employer]. All rights reserved. The codes documented in this report are preliminary and upon resident care coordinator review may be revised to meet current compliance requirements. Mir Rousseau DO 07/03/2024 8:59:34 AM This report has been signed electronically. Number of Addenda: 0 Note Initiated On: 07/03/2024 8:13 AM
--- NOTE | 2024-07-03 09:00 | OP.CCLET_ITS ---
07/03/2024 Johanna Saldivar Md Re : Colonoscopy procedure for Fernanda Blake Yariel This procedure was performed on Wednesday, July 03, 2024. My impressions and recommendations are as follows: Impressions : - Stricture in the sigmoid colon. - Stricture in the terminal ileum and at the ileocecal valve. Biopsied. Recommendations : - Discharge patient to home. - Resume previous diet. - Continue present medications. - Await pathology results. - Repeat colonoscopy for surveillance based on pathology results. My findings are described in the full procedure note, which is enclosed. If I can be of further assistance, please feel free to contact me at . Sincerely, Mir Rousseau, 07/03/2024 8:59:34 AM This report has been signed electronically.
--- NOTE | 2024-07-03 09:20 | PCM.POSTANE2 ---
Anesthesia Postop Eval I Sum Postop Eval Completion status Anesthesia document: Postop Eval 1 completed: Yes Anesthesia Postop Eval I Summary Anesthesia Postop Eval I Summary: Anesthesia Postop Eval I: Assessment Summary Airway patent Yes 07/03/24 09:01 [email or web address] Spontaneous unlabored Yes 07/03/24 09:01 [email or web address] respirations Mental status Awake,Calm 07/03/24 09:01 [email or web address] nausea No 07/03/24 09:01 [email or web address] Vomiting No 07/03/24 09:01 [email or web address] Anesthesia Postop Eval I: Fluid Summary Crystalloid volume administer 60 07/03/24 09:01 [email or web address] (ml) Colloids volume administered ( ml) Blood Product volume administered (ml) Total IV fluid infused 60 07/03/24 09:01 [email or web address] Anesthesia Postop Eval I: Summary Notes Anesthesia Complication No 07/03/24 09:01 [email or web address] Anesthesia Complication Comment: Post-operative progress note Anesthesia: Postop Eval II Evaluation Mental status: Awake Pain Level: 0 nausea: No Vomiting: No Complications Anesthesia Complication: No
== END 2024-07-03 09:30 | disposition home or self-care (01) ==
LOC: EN 06:58 → AC 07:00
PROVIDERS: Anesthesiology; PCP Family Medicine; Referring Provider Family Medicine; Visit Provider Internal Medicine Gastroenterology
PROC: 0DJD8ZZ Inspection of Lower Intestinal Tract, Via Natural or Artificial Opening Endoscopic (ICD-10-PCS; CPT 45378; principal; 2024-07-03 07:55)
DX: K50.90 Crohn's disease, unspecified, without complications (principal); K56.609 Unspecified intestinal obstruction, unspecified as to partial versus complete obstruction; E11.9 Type 2 diabetes mellitus without complications; I10 Essential (primary) hypertension; E03.9 Hypothyroidism, unspecified; F41.9 Anxiety disorder, unspecified; F32.A Depression, unspecified; Z79.899 Other long term (current) drug therapy
CPT/HCPCS: 45380; 81025; 88305; A4216; J2405

== ENCOUNTER → 2024-09-10 | Outpatient (CLI) | payer BC, SELFPAY ==
--- NOTE | 2024-09-10 09:06 | MRI_ITS ---
PROCEDURE: ENTEROGRAPHY ABD/PEL ([facility]) 09/10/2024 REASON FOR EXAM: K50.90 - CROHN'S DISEASE, UNSPECIFIED, WITHOUT COMPLICATIONS TECHNIQUE: Multisequence multiplanar MRI of the abdomen and pelvis was performed with and without IV contrast. IV contrast: 20 mL Clariscan PO contrast: Administered, however contrast type and dose information is not provided. COMPARISON: None FINDINGS: Note that the exam was optimized for evaluation of the bowel rather than the remaining abdominopelvic viscera. Note also that dynamic T2 and diffusion sequences were note that not performed. Note that the perianal region as well as the inferior most rectum and anorectal junction are excluded from the field of view. Lung bases: RIGHT basilar probable atelectasis/scarring. Liver: Unremarkable. Spleen: Unremarkable. Gallbladder: Cholelithiasis. Possible layering sludge. Pancreas: Unremarkable. Adrenals: Unremarkable. Kidneys: Unremarkable. Bowel: Segmental and alternating areas of luminal narrowing and slightly eccentric wall thickening up to severe, 11 mm in thickness, are present along the distal and terminal ileum with mild mural stratification. Longest segment extending from the terminal ileum to the ileocecal valve is difficult to measure given tortuosity of bowel but probably at least 10-15 cm. An upstream segment measures roughly 5.3 cm. Associated mild hyperemia, however the appearance of the bowel wall is mostly T2 dark. No upstream dilatation. No definite evidence of fistulization. Unremarkable appendix. Lymph nodes: Subcentimeter mesenteric and retroperitoneal nodes.. Vasculature: Unremarkable. Peritoneum: Unremarkable. No abscess. Bladder: Underdistended and partially imaged on some sequences, suboptimally evaluated, without definite abnormality. Reproductive Organs: RIGHT ovary notably in close apposition an abnormal distal ileal loop without a definite interposed fat plane, however otherwise appears unremarkable. Unable to exclude adhesion. Otherwise unremarkable as imaged. Body Wall: Unremarkable. Bones: Unremarkable as imaged. MRI/Enterography Abd/Pel IMPRESSION: 1. Findings along the distal and terminal ileum are compatible with Crohn's dis ease, including severe eccentric wall thickening. Signal characteristics favor mostly chronic sequelae such as fibrosis although given some associated hyperemia, mild superimposed active inflammation is possible. Alternating areas of luminal narrowing are pr esent which may reflect varying degrees of stricture, however there is no upstream dilatation to confirm this or suggest o bstruction. 2. Note is made of close opposition of the RIGHT ovary with an involved distal ileal loop. Although the ovary otherwise appears unremarkable, adhesion perhaps related to previous penetrating disease cannot b e excluded. 3. No definite evidence of penetrating disease such as fistulization or abscess . 4. Additional description as above. Reading Location: [id number]
[2024-09-10 09:49] VITALS: BP 120/69; PULSE 66; RESP 16; O2SAT 98; BMI 42.9
[2024-09-10] MEDS: 0.9% Saline Lock 10 ML Syringe IV (11:00)
[2024-09-10] MEDS: Glucagon 1 MG/ML Syringe IV (11:00)
[2024-09-10 11:17] VITALS: BP 157/94; PULSE 80; RESP 16; O2SAT 97
== END | disposition home or self-care (01) ==
LOC: MRI 08:59
PROVIDERS: PCP Family Medicine; Referring Provider Internal Medicine Gastroenterology; Visit Provider Internal Medicine Gastroenterology
DX: K50.90 Crohn's disease, unspecified, without complications (principal)
CPT/HCPCS: 74183; 96374; A9575; A4216; J1610

== ENCOUNTER → 2025-04-07 | Outpatient (CLI) | payer BC, SELFPAY ==
[2025-04-07 12:41] LABS: Hematocrit 42.4 % (37-47); Hemoglobin 14.2 g/dL (12.0-15.0); Immature Granulocytes Count 0.040 X10^3/uL (0.0-0.0); Mean Corp Hgb Conc 33.5 g/dL (32-36); Mean Corpuscular Volume 91.2 fL (81-99); Mean Platelet Vol. 9.1 fl (6.2-12.0); NRBC Flagged by Analyzer 0 % (0-5); Platelet Count 438 K/mm3 (150-450); RBC Distribution Width CV 13.2 % (11.6-14.6); RBC Distribution Width SD 44.0 fl (35.1-43.9); Red Blood Count 4.65 M/mm3 (4.2-5.4); White Blood Count 12.0 K/mm3 (4.4-11.0)
[2025-04-07 13:09] LABS: AST(SGOT) 21 U/L (<=31); Alanine Aminotransfer ALT/SGPT 20 U/L (<=34); Albumin, Serum 3.7 g/dL (3.5-5.0); Alkaline Phosphatase 82 U/L (35-104); Anion Gap 10 (5-15); BUN 14 mg/dL (4-19); BUN/Creat Ratio 14.9 RATIO (10-20); CRP 12.90 mg/L (0.0-3.0); Calcium,Total 9.1 mg/dL (7.6-11.0); Carbon Dioxide 21.0 mmol/L (21.0-32.0); Chloride 108 mmol/L (98-108); Globulin 3.4 g/dL (2.2-4.2); Glucose 113 mg/dL (70-99); Potassium 3.9 mmol/L (3.3-5.1)
== END | disposition home or self-care (01) ==
PROVIDERS: PCP Family Medicine; Referring Provider Internal Medicine Gastroenterology; Visit Provider Internal Medicine Gastroenterology
DX: K50.90 Crohn's disease, unspecified, without complications (principal)
CPT/HCPCS: 36415; 80053; 85025; 85652; 86140

== ENCOUNTER → 2025-04-16 | Outpatient (CLI) | payer BC, SELFPAY ==
[2025-04-20 01:06] LABS: Calprotectin, Stool 66 ug/g (0-120)
== END | disposition home or self-care (01) ==
LOC: LABSPEC 13:01
PROVIDERS: PCP Family Medicine; Referring Provider Internal Medicine Gastroenterology; Visit Provider Internal Medicine Gastroenterology
DX: K50.90 Crohn's disease, unspecified, without complications (principal)
CPT/HCPCS: 83993